=== PATIENT | female | born 1975 | race Caucasian/White ===

== ENCOUNTER → 2019-07-26 | Outpatient (CLI) | payer MEDICAID, SELFPAY ==
[2019-07-25 15:31] VITALS: BMI 34.2
== END | disposition home or self-care (01) ==
PROVIDERS: Visit Provider Physician Assistant
DX: L02.91 Cutaneous abscess, unspecified (principal)
CPT/HCPCS: 87070; 87077; 87186; 87205

== ENCOUNTER 2020-05-13 04:09 | Emergency (ER) | payer MEDICAID, SELFPAY ==
[2019-07-25 15:31] VITALS: BMI 34.2
[2020-05-13 04:09] VITALS: BP 112/74; PULSE 89; RESP 18; TEMP 36.9; O2SAT 98; BMI 37.8
--- NOTE | 2020-05-13 04:32 | RAD_ITS ---
STUDY: X-RAY - LEFT WRIST REASON FOR EXAM: Female, 44 years old. LEFT WRIST PAIN and amp; SWELLING. UNSURE HOW SHE INJURED IT, POSSIBLE BURNT IT TECHNIQUE: 3 view(s) of the wrist were obtained. COMPARISON: None. FINDINGS: Normal visualized distal radius and ulna. Normal radiocarpal articulation. Normal distal radioulnar articulation. Normal carpal bones. Normal carpal articulations. Normal carpometacarpal articulation of the thumb. Normal second through fifth carpometacarpal articulations. Normal visualized metacarpal bones. There is nonspecific soft tissue swelling. There is no demonstrated soft tissue emphysema or radiodense foreign body. RAD/Wrist min 3 Views IMPRESSION: No demonstrated fracture, dislocation, or destructive osseous lesion. Electronically Signed: Urbano Ramos MD at 4:58 EST , Service support ,
--- NOTE | 2020-05-13 04:33 | RAD_ITS ---
STUDY: X-RAY - LEFT HAND REASON FOR EXAM: Female, 44 years old. LEFT WRIST PAIN and amp; SWELLING. UNSURE HOW SHE INJURED IT, POSSIBLE BURNT IT TECHNIQUE: 3 view(s) of the hand. COMPARISON: X-ray wrist. FINDINGS: Normal radiocarpal articulation. Normal distal radioulnar joint. Normal visualized carpal bones. Normal carpal articulations Normal carpometacarpal articulation of the thumb. Normal second through fifth carpometacarpal joints. Normal metacarpi. Normal metacarpophalangeal joint of the thumb. Normal interphalangeal joint of the thumb. Normal proximal and distal phalanges of the thumb. Normal metacarpophalangeal joints of the second through fifth fingers. Normal proximal and distal interphalangeal joints of the second through fifth fingers. Normal phalanges of the second through fifth fingers. There is soft tissue swelling. There is no visualized soft tissue emphysema or radiodense foreign body. RAD/Hand Min 3 Views IMPRESSION: No demonstrated fracture, dislocation, or destructive osseous lesion. Electronically Signed: Urbano Ramos MD at 5:04 EST , Service support ,
--- NOTE | 2020-05-13 04:33 | ED.VIS.GEN ---
History of Present Illness Chief Complaint: Upper Extremity Injury Informant: Patient Narrative: 44-year-old female presenting with left wrist pain and hand pain. She states it started swelling yesterday. She believes she might have burned it while she was baking. She denies any direct trauma to the area. There is swelling but no drainage. No paresthesias. Patient denies any IV drug use. Past Medical History - Allergies and Home Meds Allergies/Adverse Reactions: Allergies No Known Allergies Allergy (Unverified 07/25/19 15:31) Primary Care Physician: [facility]] - NOT,DEFINED [NON-STAFF] - Past Medical History: - - Denies medical history Surgical History: noncontributory Smoking Status: Current every day smoker Alcohol: None Drugs: None Review of Systems General: Denies: Chills, Fever, Sweats Eyes: Denies: Visual changes - bilaterally, Diplopia ENT: Denies: Rhinorrhea, Sore throat Cardiovascular: Denies: Chest pain, Palpitations Respiratory: Denies: Dyspnea, Cough, Dyspnea on exertion Gastrointestinal: Denies: Abdominal pain, Nausea, Vomiting, Diarrhea, Melena, Hematochezia Genitourinary: Denies: Dysuria, Hematuria, Frequency Musculoskeletal: Reports: Extremity Pain - Left wrist and hand pain and swelling. Denies: Neck pain, Back pain Skin: Reports: - - Pain and swelling over the left wrist and hand Neurological: Denies: Headache, Weakness Psych: Denies: Depression, Anxiety Physical Exam Vital Signs/Narrative: Vital Signs Temp Pulse Resp BP Pulse Ox 05/13/20 04:09 98.4 F 89 18 112/74 98 Inital Vital Signs reviewed: Yes General: Well nourished, No Acute Distress Head: Normocephalic, Atraumatic Eyes: Perrl, EOMI ENT: Moist mucous membranes, No rhinorrhea Neck: Supple, Nontender Cardiovascular: Regular rate, Regular rhythm Respiratory: No distress, CTA bilaterally Extremities: - - Edema and swelling over the volar aspect of the left lateral wrist with swelling into the hand. No crepitance. Nonfluctuant. Multiple scars over the posterior forearm. Small punctate area with a pink [place] marked around it on the upper posterior arm. Skin: - - As described under extremities Neurological: Alert, Oriented x3, Cranial nerves II-XII grossly intact Psychological: Normal affect, Normal Mood Diagnostic/Tx/Re-eval Clinical Impression(s) from Imaging Studies Wrist X-Ray 05/13/20 04:32 IMPRESSION: No demonstrated fracture, dislocation, or destructive osseous lesion. Electronically Signed: rUbano Ramos MD at 4:58 EST , Service support , Hand X-Ray 05/13/20 04:33 IMPRESSION: No demonstrated fracture, dislocation, or destructive osseous lesion. Electronically Signed: Urbano Ramos MD at 5:04 EST , Service support , Laboratory Data 05/13/20 05/13/20 05:06 05:06 WBC 10.0 RBC 4.23 Hgb 12.5 Hct 38.1 MCV 90.1 MCH 29.6 MCHC 32.8 RDW Std Deviation 44.7 H RDW Coeff of Dexter 13.5 Plt Count 384 MPV 8.3 Immature Gran % (Auto) 0.400 Neut % (Auto) 68.9 Lymph % (Auto) 21.4 [place] % (Auto) 6.3 Eos % (Auto) 2.2 Baso % (Auto) 0.8 Absolute Neuts (auto) 6.9 Absolute Lymphs (auto) 2.14 Nucleated RBC % 0 Sodium 138 Potassium 3.9 Chloride 107 Carbon Dioxide 27.0 Anion Gap 4 L BUN 15 Creatinine 0.85 Estim Creat Clear Calc 67.50 Est GFR (MDRD) Af Amer 93 Est GFR (MDRD) Non-Af 77 BUN/Creatinine Ratio 17.6 Glucose 117 H Calcium 9.1 Total Bilirubin 0.20 AST 16 ALT 25 Alkaline Phosphatase 114 Total Protein 8.2 Albumin 3.6 Globulin 4.6 H Albumin/Globulin Ratio 0.8 L - Medical Decision Making Patient presents for evaluation of burn on her left wrist. She believes she did this while she was baking. Patient denies IV drug use. She denies any trauma. She does have significant swelling of the hand and wrist. There is no fluctuance or drainage here. Left hand is neurovascular intact with brisk cap refill to all 5 fingers. I did order basic lab work which shows no leukocytosis normal renal function. X-rays of the left wrist and hand as interpreted by myself shows no acute bony abnormalities. There is soft tissue swelling here. Radiology does agree. Given patient's eaton she will put in a dressing with bacitracin. She is given short course of Percocet for home given the pain. Patient will follow up with burn center at [facility]. Patient stable for discharge at this time. Impression: 1. First-degree burn left wrist ED Disposition - Plan for ED Patient: Disposition: Home or Assisted Living Instructions: ED [facility] [place] ... Prescriptions: Oxycodone HCl/Acetaminophen [Percocet 5/325] 1 tab PO Q6H PRN PRN 3 Days #12 tab PRN Reason: Pain Prescription Printed Referrals: NOT,DEFINED [NON-STAFF] - [facility]] -
[2020-05-13 05:08] LABS: Absolute Lymphocyte Count 2.14 X10^3/uL (0.83-4.51); Absolute Neutrophil Count 6.9 X10^3/uL (2.0-7.7); Basophil# 0.08 X10^3/uL; Basophil% 0.8 % (0-1); Eosinophil# 0.22 X10^3/uL; Eosinophils% 2.2 % (0-5); Hematocrit 38.1 % (37-47); Hemoglobin 12.5 g/dL (12.0-15.0); Lymphocyte # 2.14 X10^3/ul (4.0); Lymphocyte % 21.4 % (19-41); Mean Corp Hgb Conc 32.8 g/dL (32-36); Mean Corpuscular Hgb 29.6 pg (27.0-32.0); Mean Corpuscular Volume 90.1 fL (81-99); Mean Platelet Vol. 8.3 fl (6.2-12.0); Monocyte# 0.63 X10^3/uL; Monocyte% 6.3 % (0-10); NRBC Flagged by Analyzer 0 % (0-5); Neutrophil # 6.91 X10^3/uL (2.7-7.7); Neutrophil % 68.9 % (47-70); Platelet Count 384 K/mm3 (150-450); RBC Distribution Width CV 13.5 % (11.6-14.6); RBC Distribution Width SD 44.7 fl (35.1-43.9); Red Blood Count 4.23 M/mm3 (4.2-5.4)
[2020-05-13] MEDS: Morphine 4 MG/ML Syringe IV (05:13)
[2020-05-13] MEDS: Ondansetron 4 MG/2 ML Vial IV (05:13)
[2020-05-13 05:23] LABS: ALB/GLOB Ratio 0.8 RATIO (0.9-2.4); AST(SGOT) 16 U/L (15-37); Alanine Aminotransfer ALT/SGPT 25 U/L (13-56); Albumin, Serum 3.6 g/dL (3.2-5.0); Alkaline Phosphatase 114 U/L (45-117); Anion Gap 4 (5-15); BUN 15 mg/dL (7-18); BUN/Creat Ratio 17.6 RATIO (10-20); Calcium,Total 9.1 mg/dL (8.5-10.1); Chloride 107 mmol/L (98-107); Creatinine, Serum 0.85 mg/dL (0.55-1.02); EST Glomerular Filtration Rate 77 mL/min (>60); Est Glom Filt Rate - Afr Amer 93 mL/min (>60); Globulin 4.6 g/dL (2.2-4.2); Glucose 117 mg/dL (74-106); Potassium 3.9 mmol/L (3.5-5.1); Protein, Total 8.2 g/dL (6.4-8.2); Sodium Level 138 mmol/L (136-145)
[2020-05-13] MEDS: oxyCODONE 5 MG Tablet PO (05:45)
[2020-05-13 05:47] VITALS: BP 125/73; PULSE 73; RESP 22; O2SAT 98
--- NOTE | 2020-05-13 20:31 | ED.DEP ---
ED Disposition - Plan for ED Patient: Disposition: Home or Assisted Living Instructions: ED [facility] [place] ... Prescriptions: Oxycodone HCl/Acetaminophen [Percocet 5/325] 1 tab PO Q6H PRN PRN 3 Days #12 tab PRN Reason: Pain Prescription Printed Oxycodone HCl/Acetaminophen [Percocet 5/325] 1 tab PO Q6H PRN PRN 3 Days #12 tab PRN Reason: Pain Prescription Printed Referrals: [facility] [[facility]] - NOT,DEFINED [NON-STAFF] -
== END 2020-05-13 06:04 | disposition home or self-care (01) ==
PROVIDERS: Emergency Provider Student in an Organized Health Care Education/Training Program
DX: T23.172A Burn of first degree of left wrist, initial encounter (principal); X19.XXXA Contact with other heat and hot substances, initial encounter; Y93.G3 Activity, cooking and baking; Y92.9 Unspecified place or not applicable; Y99.8 Other external cause status; F17.200 Nicotine dependence, unspecified, uncomplicated
CPT/HCPCS: 73110; 73130; 80053; 85025; 96361; 96374; 96375; 99285; J7030; J2405

== ENCOUNTER 2024-11-02 00:18 | Emergency (ER) | payer MEDICAID, SELFPAY ==
[2024-11-02] VITALS (35 sets, daily range): BP systolic 95–149; BP diastolic 44–117; PULSE 72–116; RESP 11–28; TEMP 36.1–37.2; O2SAT 93–100; BMI 33.9
--- OUTSIDE RECORDS SUMMARY | 2024-11-02 00:50 | XMS RPT_ITS | CCD ---
Author Organization [facility] Inform ion Partnership [facility] Care Team Providers Care Director Of It Operations Name Role Phone Andrei Andrea Unavailable Unavailable Andrei Andrea Unavailable Unavailable Unavailable Primary Care Provider Unavailanastacio rogers PHYSICIAN, NONE Primary Care Physician Unavailab jayden YEE, DR SOURAV Rogers Admitting Unavaila ble JOSELITO, DR SOURAV Rogers Attending Unavaila ble JOSELITO, DR SOURAV Rogers Primary Care Unavaila KAVIN Wells Referring Unavailable KAVIN DEE Attending Unavailable Medications Current Medications Medication Drug Class(es) Dates Sig (Normalized) Sig (Original) acetaminophen 325 mg / oxyCODONE hydrochloride 5 mg oral tablet (2 sources) Opioid Agonist Start: 12-13-2020 acetaminophen-oxy CODONE 325 mg-5 mg oral tablet 0 Refill(s), 81.8 Start Date: 12/13/20 Status: Ordered amoxicillin 875 mg oral tablet (2 sources) Penicillin-class Antibacterial Start: 12-13-2020 amoxicillin 875 mg oral tablet 0 Refill(s) Start Date: 12/13/20 Status: Ordered buprenorphine 8 mg / naloxone 2 mg sublingual film (2 sources) Partial Opioid Agonist, Opioid Antagonist Start: 12-17-2021 take 1 dose under the tongue once daily buprenorphine-nal oxone 8 mg-2 mg sublingual film Dose = 1 EA, Sublingual, qDay, 82 Start Date: 12/17/21 Status: Ordered Start: 11-01-2021 End: 11-01-2021 Buprenorphine 4 mg/naloxone 1 mg (SUBOXONE) SL film 1 strip Completed/Discontinued Medications Medication Drug Class(es) Dates Sig (Normalized) Sig (Original) acetaminophen 325 mg oral tablet (1 source) Start: 11-01-2021 End: 11-01-2021 take 1 tablet by mouth every six hours as needed acetaminophen (TYLENOL) tablet 650 mg acetaminophen 325 mg / HYDROcodone bitartrate 5 mg oral tablet (2 sources) Opioid Agonist Start: 10-15-2020 End: 10-18-2020 take 1 tablet by mouth every six hours as needed for pain Aurora 325- 5 mg oral tablet Dose = 1 tab(s), Oral, q6h, PRN as needed for pain, # 12 tab(s), 0 Refill(s), Otitis media, 81.8 Start Date: 10/15/20 Stop Date: 10/18/20 Status: Ordered calcium chloride 0.0014 meq/ml / potassium chloride 0.004 meq/ml / sodium chloride 0.103 meq/ml / sodium lactate 0.028 meq/ml injectable solution (2 sources) Start: 11-01-2021 End: 11-01-2021 lactated ringers IV solution 1,000 mL cloNIDine hydrochloride 0.1 mg oral tablet (1 source) Central alpha-2 Adrenergic Agonist Start: 11-01-2021 End: 11-01-2021 take 1 tablet by mouth every six hours as needed cloNIDine (CATAPRES) tablet 0.1 mg dicyclomine hydrochloride 10 mg oral capsule (1 source) Anticholinergic Start: 11-01-2021 End: 11-01-2021 take 1 capsule by mouth every six hours as needed dicyclomine (BENTYL) capsule 10 mg 2 ml droperidol 2.5 mg/ml injection (1 source) Dopamine-2 Receptor Antagonist Start: 11-01-2021 End: 11-01-2021 droperidol (INAPSINE) injection 1.25 mg Start: 11-01-2021 End: 11-01-2021 droperidol (INAPSINE) inject ion 1.25 mg hydrOXYzine hydrochloride 25 mg oral tablet (1 source) Antihistamine Start: 11-01-2021 End: 11-01-2021 take 1 tablet by mouth every eight hours as needed hydrOXYzine HCl (ATARAX) tablet 25 mg predniSONE 10 mg oral tablet (4 sources) Start: 12-02-2021 End: 12-14-2021 take 1 tablet by mouth twice daily prednisone 10mg tab (TAPER) Taper 30-20-10-5 mg x 3 days each dose, Oral, BID, # 39 tab(s), 0 Refill(s), Contact dermatitis caused by urushiol from [place] poison eve Start Date: 12/02/21 Stop Date: 12/14/21 Status: Ordered Start: 10-15-2020 End: 10-20-2020 predniSONE 20 mg oral tablet Dose : 40 mg = 2 tab(s), Oral, Daily, # 10 tab(s), 0 Refill(s), Otitis media Start Date: 10/15/20 Stop Date: 10/20/20 Status: Ordered Problems Active Problems Problem Classification Problem Date Documented Da te Episodic/Chronic Allergic reactions (1 source) Contact dermatitis due to plants; Translations: [Unspecified contact dermatitis due to plants, except food] Onset: 12-02-2021 Episodic Asthma (2 sources) Asthma 05-18-2014 Chronic Nausea and vomiting (1 source) Nausea and vomiting; Translations: [Nausea with vomiting, unspecified] Episodic Other upper respiratory disease (1 source) Nasal congestion; Translations: [Nasal congestion] Onset: 12-17-2021 Episodic Substance-related disorders (2 sources) Opioid abuse; Translations: [Opioid use, unspecified, uncomplicated] Onset: 11-01-2021 Episodic Unclassified (1 source) Unknown / UNK(Unknown) Onset: 04-26-2017 Past or Other Problems Problem Classification Problem Date Documented Da te Episodic/Chronic Unclassified (1 source) ACUTE RIGHT LOWER EXTREMITY CELLULITIS,ACUTE Onset: 04-26-2017 Results Test Name Value Interpretation Reference Range Facility [id number] 12-17-2021 Date of Onset 20211214 Invalid Interpretation Code [facility] ([place] Comment on above: Performed By: #### C OVD19 #### [address] [address] Employed in Healthcare No [facility] [place] Comment on above: Performed By: #### C OVD19 #### Nicolas [address] [address] First Test Unknown [facility] ([place] Comment on above: Performed By: #### C OVD19 #### Nicolas [address] [address] Hospitalized No [facility] [place] Comment on above: Performed By: #### C OVD19 #### Nicolas [address] [place], [place] [address] ICU No Normal [facility] ([place] Comment on above: Performed By: #### C OVD19 #### Nicolas [address] [place], [place] [address] Not [facility] ([place] Comment on above: Performed By: #### C OVD19 #### Nicolas [address] [address] Resides in Congregate Care Setting No Normal [facility] ([place] Comment on above: Performed By: #### C OVD19 #### Nicolas [address] [address] SARS-CoV-2 (COVID-19) RNA HERNANDEZ+probe Ql (Unsp spec) Negative Normal Negative [facility] ([place] Comment on above: Performed By: #### C OVD19 #### Nicolas [address] [address] SARS-CoV-2 (COVID-19) RNA HERNANDEZ+probe Ql (Unsp spec) Normal [facility] ([place] Comment on above: Result Comment: Nega tive results do not preclude SARS-CoV-2 infection and should not be used as the sole basis for patient management decisions. Negative results must be combined with clinical observations, patient history, and epidemiological information. There is a risk of false negative values resulting from improperly collected, transported, or handled specimens. There is a risk of false negative values due to the presence of sequence variants in the pathogen targets of the assay, procedural errors, amplification inhibitors in specimens, or inadequate numbers of organisms for amplification. WAQAR SARS-CoV-2 Assay is a Real-Time reverse-transcriptase polymerase chain reaction (RT-PCR) based qualitative in vitro diagnostic test intended for the qualitative detection of nucleic acid from the SARS-CoV-2 in nasopharyngeal swab specimens collected from individuals suspected of COVID-19 by their healthcare provider. Testing is limited to laboratories certified under the Clinical Laboratory Improvement Amendments of 1988 (CLIA), 42 U.S.C. ?263a, to perform moderate and high complexity tests. COVID-19 Int Performed By: #### C OVD19 #### [place] [id number] [place], [place] [address] Symptomatic as Defined by CDC No Normal [facility] ([place]) Comment on above: Performed By: #### C OVD19 #### [facility] [address] [place], [place] [address] LABORATORYOrdered By: Rufus Arryoo on 12-17-2021 ADMITTED TO INTENSIVE CARE UNIT FOR CONDITION OF INTEREST:FIND:PT:^ PATIENT:ORD: No (12/17/21 8:48 AM) Invalid Interpretation Code AO Auto Urine SS EMPLOYED IN A HEALTHCARE SETTING:FIND:PT:^P ATIENT:ORD: No (12/17/21 8:48 AM) Invalid Interpretation Code AO Auto Urine SS FIRST TEST FOR CONDITION OF INTEREST:FIND:PT:^ PATIENT:ORD: Unknown (12/17/21 8:48 AM) Invalid Interpretation Code AO Auto Urine SS HAS SYMPTOMS RELATED TO CONDITION OF INTEREST:FIND:PT:^ PATIENT:ORD: No (12/17/21 8:48 AM) Invalid Interpretation Code AO Auto Urine SS Illness or injury onset date and time 20211214 Invalid Interpretation Code AO Auto Urine SS Patient was hospitalized because of this condition No (12/17/21 8:48 AM) Invalid Interpretation Code AO Auto Urine SS status Not (12/17/21 8:48 AM) Invalid Interpretation Code AO Auto Urine SS RESIDES IN A CONGREGATE CARE SETTING:FIND:PT:^P ATIENT:ORD: No (12/17/21 8:48 AM) Invalid Interpretation Code AO Auto Urine SS SARS-CoV-2 (COVID-19) RNA HERNANDEZ+probe Ql (Unsp spec) Negative results do not preclude SARS-CoV-2 infection and should not be used as the sole basis for patient management decisions. Negative results must be combined with clinical observations, patient history, and epidemiological information.There is a risk of false negative values resulting from improperly collected, transported, or handled specimens.There is a risk of false negative values due to the presence of sequence variants in the pathogen targets of the assay, procedural errors, amplification inhibitors in specimens, or inadequate numbers of organisms for amplification.WAQAR SARS-CoV-2 Assay is a Real-Time reverse-transcriptase polymerase chain reaction (RT-PCR) based qualitative in vitro diagnostic test intended for the qualitative detection of nucleic acid from the SARS-CoV-2 in nasopharyngeal swab specimens collected from individuals suspected of COVID-19 by their healthcare provider. Testing is limited to laboratories certified under the Clinical Laboratory Improvement Amendments of 1988 (CLIA), 42 U.S.C. 263a, to perform moderate and high complexity tests. Invalid Interpretation Code AO Auto Urine SS CBC AND ELECTRONIC DIFFon Basophils (Bld) [#/Vol] 0.11 10*3/uL 0.00 - 0.15 K/uL [facility] Basophils/100 WBC (Bld) 0.9 % [facility] Differential cell count method Nom (Bld) Electronic Differential [facility] Eosinophils (Bld) [#/Vol] 0.14 10*3/uL 0.00 - 0.42 K/uL [facility] Eosinophils/100 WBC (Bld) 1.1 % [facility] Erythrocyte distribution width (RBC) [Ratio] 13.2 % 10.8 - 14.9 % [facility] Hematocrit (Bld) [Volume fraction] 51.3 % High 34.9 - 44.3 % [facility] Hemoglobin (Bld) [Mass/Vol] 16.8 g/dL High 11.4 - 15.2 g/dL [facility] Immature granulocytes (Bld) [#/Vol] 0.05 10*3/uL <=0.08 [facility] Immature granulocytes/100 WBC (Bld) 0.4 % [facility] Interpretation and review of laboratory results Abnormal [facility] Lymphocytes (Bld) [#/Vol] 3.58 10*3/uL High 1.16 - 3.51 K/uL [facility] Lymphocytes/100 WBC (Bld) 28.8 % [facility] MCH (RBC) [Entitic mass] 29.1 pg 25.9 - 33.9 pg [facility] MCHC (RBC) [Mass/Vol] 32.7 g/dL 31.4 - 35.9 g/dL [facility] MCV (RBC) [Entitic vol] 88.8 fL 79.6 - 97.7 fL [facility] Monocytes (Bld) [#/Vol] 1.14 10*3/uL High 0.22 - 0.87 K/uL [facility] Monocytes/100 WBC (Bld) 9.2 % [facility] Neutrophils (Bld) [#/Vol] 7.42 10*3/uL High 1.64 - 7.28 K/uL [facility] Nucleated RBC/100 WBC (Bld) [Ratio] 0.0 % <=0.2 /100 WBC [facility] Platelet mean volume (Bld) [Entitic vol] 8.8 fL 8.5 - 12.2 fL [facility] Platelets (Bld) [#/Vol] 458 10*3/uL High 150 - 393 K/uL [facility] RBC (Bld) [#/Vol] 5.78 10*6/uL High [facility] Segmented neutrophils/100 WBC (Bld) 59.6 % [facility] WBC (Bld) [#/Vol] 12.44 10*3/uL High 3.99 - 11 .19 K/uL [facility] CHEM 7 (LYTES,BUN,CREA,GLUC) on 11-01-2021 Anion gap [Moles/Vol] 16 mmol/L 7 - 17 mmol/L [facility] Chloride [Moles/Vol] 99 mmol/L 98 - 108 mmol/L [facility] CO2 [Moles/Vol] 22 mmol/L 21 - 31 mmol/L [facility] Creatinine [Mass/Vol] 0.97 mg/dL 0.50 - 1.20 mg/dL [facility] GFR/1.73 sq M.predicted CKD-EPI (S/P/Bld) [Vol rate/Area] 73 >=60 mL/min/1.73m 2 [facility] Comment on above: Reported eGFR is bas ed on the CKD-EPI 2020 equation using creatinine, age, and sex. Glucose [Mass/Vol] 98 mg/dL 70 - 99 mg/dL [facility] Interpretation and review of laboratory results Abnormal [facility] Osmolality Calc [Osmolality] 285 [facility] Potassium [Moles/Vol] 3.8 mmol/L 3.5 - 5.0 mmol/L [facility] Sodium [Moles/Vol] 133 mmol/L Low 135 - 145 mmol/L [facility] Urea nitrogen [Mass/Vol] 30 mg/dL High 7 - 25 mg/dL [facility] Urea nitrogen/Creatinin e [Mass ratio] 31 mg/mg [facility] HIGH SENSITIVITY TROPONIN I - SINGLE ORDERon 11-01-2021 Interpretation and review of laboratory results Normal [facility] Troponin I.cardiac DL <= 0.01 ng/mL [Mass/Vol] 21 ng/L <[address] [facility] LACTATE, BLOODOrdered By: Alejandro blankenship Ma on 11-01-2021 Interpretation and review of laboratory results Normal [facility] Lactate [Moles/Vol] 1.5 mmol/L 0.5 - 1.6 mmol/L [facility] LACTATE, WHOLE BLOODon 11-01 Interpretation and review of laboratory results Abnormal [facility] Lactate [Moles/Vol] 2.1 mmol/L High 0.5 - 1.6 mmol/L [facility] LIPASEon 11-01-2021 Lipase [Catalytic activity/Vol] 28 U/L 11 - 82 U/L [facility] MAGNESIUMon 11-01-2021 Magnesium [Mass/Vol] 2.3 mg/dL 1.6 - 2.6 mg/dL [facility] No Panel Informationon 11-01 Interpretation and review of laboratory results Normal [facility] PHOSPHATE, INORGANICon 11-01 Phosphate [Mass/Vol] 3.5 mg/dL 2.2 - 4.6 mg/dL [facility] BLOOD CULTUREon 05-01-2017 Bacteria culture NO GROWTH AFTER 5 DAYS Normal [facility] Comment on above: Order Comment: Campu s: M Performed By: #### L 500.36168, L500.95844 ####[facility] [id number] [place], [place] [address]Qm# [phone] Bacteria culture NO GROWTH AFTER 5 DAYS Normal [facility] Comment on above: Order Comment: Campu s: M Performed By: #### L 500.20770, L500.24207 ####[facility] [id number] [place], [place] [address]Bk# [phone] DRUG SCREEN URon 05-01-2017 DRUG SCREEN UR FINAL Normal () [facility] Comment on above: Order Comment: Campu s: M Result Comment: =COMPREHENSIVE DRUG ANALYSIS,UR Test Result Flag UnitsDrug Present Methamphetamine >2128 ng/mg creat Amphetamine 1371 ng/mg creat Sources of methamphetamine include illicit sources, as a scheduled prescription medication, as a metabolite of some prescription drugs, or use of an l-methamphetamine inhaler. Amphetamine is an expected metabolite of methamphetamine. Amphetamine is also available as a schedule II prescription drug. Benzoylecgonine >2128 ng/mg creat Benzoylecgonine is a metabolite of cocaine; its presence indicates use of this drug. Source is most commonly illicit, but cocaine is present in some topical anesthetic solutions. Carboxy-THC 57 ng/mg creat Carboxy-THC is a metabolite of tetrahydrocannabinol (THC). Source of THC is most commonly illicit, but THC is also present in a scheduled prescription medication. Morphine 33 ng/mg creat Potential sources of morphine include administration of codeine or morphine, use of heroin, or ingestion of poppy seeds. Fentanyl 9 ng/mg creat Norfentanyl 113 ng/mg creat Source of fentanyl is a scheduled prescription medication, including IV, patch, and transmucosal formulations. Norfentanyl is an expected metabolite of fentanyl. Buprenorphine 83 ng/mg creat Norbuprenorphine 23 ng/mg creat Source of buprenorphine is a scheduled prescription medication. Norbuprenorphine is an expected metabolite of buprenorphine. A moderate to large amount of buprenorphine is present; norbuprenorphine is present at a very low concentration. This is an atypical result. Although patients with unusual metabolic profiles exist, they are rare. Review of previous drug screen results or collection of a urine sample several hours after a WITNESSED dose of the drug may help to clarify the subject's ability to produce metabolite. Diphenhydramine PRESENT Lidocaine PRESENT ========Test Result Flag Units Ref Range Creatinine 235 mg/dL >=20 =====For clinical consultation, please call . Performed By: #### L 200.36835 ####[facility] [id number] [place], [place] [address]Km# [phone] BMPon 04-30-2017 Anion gap 9 mmol/L Normal 5-16 [facility] Comment on above: Order Comment: Melissa Brito Performed By: #### L 200.92970 ####[facility] [id number] [place], [place] [address]Pq# [phone] BUN/Creatinine Ratio 21 mg/mg Normal 15-24 [facility] Comment on above: Order Comment: Dezu s: M Performed By: #### L 200.64942 ####[facility] [id number] [place], [place] [address]Bp# [phone] Calcium 8.4 mg/dL Low 8.5-10.1 [facility] Comment on above: Order Comment: Campu s: M Performed By: #### L 200.21522 ####[facility] [id number] [place], [place] [address]Zm# [phone] Chloride 110 mmol/L High 98-107 [facility] Comment on above: Order Comment: Campu s: M Performed By: #### L 200.30176 ####[facility] [id number] [place], [place] [address]Ek# [phone] CO2 23 mmol/L Normal 21-32 [facility] Comment on above: Order Comment: Campu s: M Performed By: #### L 200.11337 ####[facility] [id number] [place], [place] [address]Bi# [phone] Creatinine 0.797 mg/dL Normal 0.510-0.950 [facility] Comment on above: Order Comment: Dezu s: M Result Comment: Chapis ents receiving either N-Acetylcysteine (NAC) orMetamizole prior to venipuncture, may have falsely depressedresults. Performed By: #### L 200.50144 ####[facility] [id number] [place], [place] [address]Ir# [phone] Glucose mass conc 85 mg/dL Normal 70-100 [facility] Comment on above: Order Comment: Campu s: M Result Comment: 70-1 00- Normal Fasting; 100-125 Impaired Fasting; greaterthan 126 on more than one result- Diabetes. ADA guidelines.Results may be falsely elevated after the administration ofSulfapyridine.Results may be falsely depressed after the administration ofSulfasalazine. Performed By: #### L 200.90225 ####[facility] [id number] [place], [place] [address]Ye# [phone] Potassium molar conc 4.3 mmol/L Normal 3.5-5.1 [facility] Comment on above: Order Comment: Campu s: M Performed By: #### L 200.67235 ####[facility] [id number] [place], [place] [address]Ph# [phone] Sodium 142 mmol/L Normal 136-145 [facility] Comment on above: Order Comment: Campu s: M Performed By: #### L 200.07161 ####[place] [address]Ph# [phone] Urea nitrogen 17 mg/dL Normal 7-26 [facility] Comment on above: Order Comment: Campu s: M Performed By: #### L 200.86244 ####[facility] [id number] [place], [place] [address]Ph# [phone] CBC W/DIFFon 04-30-2017 BASO ABS 0.10 K/CU MM Normal 0-0.2 [facility] Comment on above: Order Comment: Campu s: M Performed By: #### L 200.59650 ####[facility] [id number] [place] [address]Rf# [phone] Basophils/100 WBC Auto (Bld) 1.4 % Normal 0-2 [facility] Comment on above: Order Comment: Campu s: M Performed By: #### L 200.75697 ####[facility] [id number] [place] [address]Oj# [phone] EOS ABS 0.20 K/CU MM Normal 0-0.5 [facility] Comment on above: Order Comment: Campu s: M Performed By: #### L 200.70190 ####[facility] [id number] [place], [place] [address]Ph# [phone] Eosinophils/100 leukocytes 3.3 % Normal 0-5 [facility] Comment on above: Order Comment: Campu s: M Performed By: #### L 200.73982 ####[facility] [id number] [place], [place] [address]Jw# [phone] Erythrocyte distribution width Auto Ratio (RBC) 13.6 % Normal 11-14.5 [facility] Comment on above: Order Comment: Campu s: M Performed By: #### L 200.56518 ####[facility] [id number] [place], [place] [address]Mh# [phone] Erythrocytes (RBC) 0.0 % Normal Less than 1 [facility] Comment on above: Order Comment: Campu s: M Performed By: #### L 200.07435 ####[facility] [id number] [place], [place] [address]Xy# [phone] Erythrocytes (RBC) 3.07 M/CU MM Low 3.90-5.[address] [facility] Comment on above: Order Comment: Campu s: M Performed By: #### L 200.05205 ####[facility] [id number] [place], [place] [address]Zk# [phone] Hematocrit (HCT) 27.6 % Low 35.0-47.0 [facility] Comment [facility]: Order Comment: Campu s: M Performed By: #### L 200.90730 ####[facility] [id number] [place], [place] [address]Ok# [phone] Hemoglobin mass conc (Bld) 8.9 g/dL Low 11.5-15.5 [facility] Comment on above: Order Comment: Campu s: M Performed By: #### L 200.85923 ####[facility] [id number] [place] [address]Va# [phone] IMMATR GRAN ABS 0.00 K/CU MM Normal Less than 2 [facility] Comment on above: Order Comment: Campu s: M Performed By: #### L 200.24973 ####[facility] [id number] [place] [address]Ph# [phone] IMMATURE GRAN % 0.3 % Normal Less than 2 [facility] Comment on above: Order Comment: Campu s: M Performed By: #### L 200.04490 ####[facility] [id number] [place], [place] [address]Ph# [phone] Lymphocytes 2.20 K/CU MM Normal 0.9-4.4 [facility] Comment on above: Order Comment: Campu s: M Performed By: #### L 200.87787 ####[facility] [id number] [place], [place] [address]Ph# [phone] Lymphocytes/100 leukocytes 38.6 % Normal 20-40 [facility] Comment on above: Order Comment: Campu s: M Performed By: #### L 200.97369 ####[place] [address]Ph# [phone] MCHC mass conc (RBC) 32.2 g/dL Normal 32.0-36.0 [facility] Comment on above: Order Comment: Campu s: M Performed By: #### L 200.50077 ####[facility] [id number] [place], [place] [address]Ph# [phone] MCV 89.9 fL Normal 80.0-99.0 [facility] Comment on above: Order Comment: Campu s: M Performed By: #### L 200.56755 ####[facility] [id number] [place], [place] [address]Ph# [phone] MONO ABS 0.70 K/CU MM Normal 0.1-1.1 [facility] Comment on above: Order Comment: Campu s: M Performed By: #### L 200.24757 ####[facility] [id number] [place], [place] [address]Ph# [phone] Monocytes/100 leukocytes 12.6 % High 2-10 [facility] Comment on above: Order Comment: Campu s: M Performed By: #### L 200.72327 ####[facility] [id number] [place], [place] [address]Rv# [phone] Neutrophils 2.50 K/CU MM Normal 2.0-8.3 [facility] Comment on above: Order Comment: Campu s: M Performed By: #### L 200.49660 ####[facility] [id number] [place], [place] [address]Ph# [phone] Neutrophils/100 WBC Auto (Bld) 43.8 % Low 45-75 [facility] Comment on above: Order Comment: Campu s: M Performed By: #### L 200.52473 ####[place] [address]Ph# [phone] Platelet mean volume (PMV) 8.7 fL Low 9.4-12.4 [facility] Comment on above: Order Comment: Campu s: M Performed By: #### L 200.80450 ####[facility] [id number] [place], [place] [address]Ph# [phone] Platelets 437 K/CU MM Normal 150-450 [facility] Comment on above: Order Comment: Campu s: M Performed By: #### L 200.46505 ####[facility] [id number] [place], [place] [address]Pr# [phone] WBC (Leukocytes) 5.8 K/CU MM Normal 4.5-11.0 [facility] Comment on above: Order Comment: Campu s: M Performed By: #### L 200.87516 ####[facility] [id number] [place], [place] [address]Ph# [phone] DISCH.SUMon 04-30-2017 DISCH.SUM [facility] Patient Name: LEANNE [id number] [facility] Date of : [address] [address] Unit Number: [id number] Number: [id number] Summary Patient Status: DIS INAttending Doctor: Andrei Andrea MDService Date: 04/30/17 1149Discharge SummaryAdmit Date04/25/17Anticipated Discharge Date 04/30/17inal Dx/Problem List1. ACUTE RIGHT LOWER EXTREMITY OPEN WOUNDS2. HEROIN ABUSE3. ThrombocytosisChief Complaint/HPIRight LE pain and woundsReason for AdmissionRight LE woundsHospital CourseThis is a 41 yo female with a pertinent past medical history of heroin abuse viaskin popping, cocaine abuse, and right le wound where patient recently went to and refused admission and x-ray and was discharged on abx. However, patientendorses that the right LE wound wound with pain, erythema, and open wound with drainageand thereby patient admitted to [facility] service for multiple right LE ulcers with drainage.1. Acute right LE open wounds/ulcers:- Plastic surgery was consulted and stated that no surgery is needed after 48 hourclinical assessment via plastic surgery. As a result, plastic surgery signed off andprescribed patient silvadine and states that they will like to see the patient on 05/06/2017 for reassessment of right LE wounds/ulcers.- Wound culture were obtained and showed strep pyogenes thereby per IDDuglas patientdischarged the patient on 14 days of Augmentin 875/125 mg PO BID and Levaquin 500 mg POqday per Microbiology sensitivity. Patient is to follow-up with Dr. Cardenas within twoweeks- During the hospitalization patient was initially started on Vanc and Zosyn, thentransitioned to Clindamycin and Unasyn. To note, patient was started on Zosyn since sheuses tap water prior to injection thereby there was concern for pseudomonas.- Blood culture obtained and showed no growth- Patient was also discharged on Ibuprofen for pain.- Patient will follow-up with [facility] within one to two weeks.2. Heroin abuse:- UDS positive for amphetamines, cannbinoids, and cocaine- HIV negative- Patient had no withdrawals while hospitalized- We counseled patient on illicit drug cessation and stop skin popping.3. Thrombocytosis:- Platelets trending down to 437. More likely (i.e. acute phase reactant).Pertinent Physical FindingsGeneral: female who appears stated age in no acute distressHeart: RRR, no M/R/GLungs: CTABAbdomen: Soft, non-distended, not tender, and normoactive bowel soundsExt: Right LE is bandage with no drainage from the bandage.Consults Infectious Disease, Plastic SurgeryPrescriptionsStart taking the following new medications:Ibuprofen* (Motrin 400MG Tab*) 400 MG [id number] MILLIGRAM ORAL EVERY 6 HOURS NEEDED as needed for PAINQty = 14No RefillsAmoxicillin/Potassium Clav* (Augmentin 875-125 Tab*) 1 EACH [id number] MILLIGRAM ORAL TWICE DAILY WITH MEALSQty = 28No RefillsLevofloxacin* (Levaquin 500 MG Tab*) 500 MG [id number] MILLIGRAM ORAL ONCE DAILY BEFORE MEALSQty = 14No RefillsSilver Sulfadiazine* (Silvadene Topical Cream*) 20 GM CREAM..G.1 APPLICATION TOPICAL EVERY DAYQty = 1Refills = 3Instructions:APPLY TO LEG WOUNDS DAILY, COVER WITH NON-STICK DRESSING AND WRAP LEGWITH KERLIX AND VENKATESH FROM KNEE TO TOESReferralsOrdered ReferralsWound Care 05/06/17or Providers:Jerardo Maza DO133Donna HAZEL [address] [address] Primary Care Provide In One-Two WeeksFor Providers:[facility]tySouthern [facility] Centerpatricia OCG[address] [place] [address] Infectious Disease In Two WeeksFor Providers:Valdez Cardenas MD[address] [place] [address] Condition: FairDisposition HomeDisclaimerThis dictation was created using voice recognition software.Phonetic and/or minor grammatical errors may exist.eSign Date and LatoyacoCyndy weathers MD Verified/Reviewed by 04/30/17 Andrei Mckeon MD [facility] Discharge Summary [facility] Siren GFR ESTon 04-30-2017 IF AMER Greater than 60 [facility] Comment on above: Order Comment: Melissa figueroa: M Performed By: #### L 200.64176 ####[facility] UIJDOTWGJO24[address] [place] [address]Ph# [phone] IF non-AFR AMER Greater than [address] [facility] Comment on above: Order Comment: Campu s: M Performed By: #### L 200.57154 ####[facility] CRZEEYYFBB9537 [place] [address]Ph# [phone] BMPon 04-29-2017 Anion gap 8 mmol/L Normal 5-16 [facility] Comment on above: Order Comment: Campu s: M Performed By: #### L 500.34917, L500.58581 ####[facility] INYFDROLEN[address] [place] [address]Op# [phone] BUN/Creatinine Ratio 18 mg/mg Normal 15-24 [facility] Comment on above: Order Comment: Campu s: M Performed By: #### L 500.00408, L500.11379 ####[facility] XBJWMDGBFP0754 [place], [place] [address]Yi# [phone] Calcium 8.6 mg/dL Normal 8.5-10.1 [facility] Comment on above: Order Comment: Campu s: M Performed By: #### L 500.62294, L500.31479 ####[facility] BEFGYFLOOJ9084 [place], [place] [address]Ha# [phone] Chloride 109 mmol/L High 98-107 [facility] Comment on above: Order Comment: Campu s: M Performed By: #### L 500.64978, L500.86353 ####[facility] IXLKENOCPE8218 [place], [place] [address]Tp# [phone] CO2 23 mmol/L Normal 21-32 [facility] Comment on above: Order Comment: Campu s: M Performed By: #### L 500.54718, L500.98622 ####[facility] VQSMCLBKVM[address] [place] [address]Oi# [phone] Creatinine 0.823 mg/dL Normal 0.510-0.950 [facility] Comment on above: Order Comment: Campu s: M Result Comment: Chapis ents receiving either N-Acetylcysteine (NAC) orMetamizole prior to venipuncture, may have falsely depressedresults. Performed By: #### L 500.39247, L500.78633 ####[facility] BNHJJXXRYM7581 [place], [place] [address]Ed# [phone] Glucose mass conc 82 mg/dL Normal 70-100 [facility] Comment on above: Order Comment: Campu s: M Result Comment: 70-1 00- Normal Fasting; 100-125 Impaired Fasting; greaterthan 126 on more than one result- Diabetes. ADA guidelines.Results may be falsely elevated after the administration ofSulfapyridine.Results may be falsely depressed after the administration ofSulfasalazine. Performed By: #### L 500.28748, L500.01735 ####[facility] VNRXQQYQZY3925 [place], [place] [address]Gg# [phone] Potassium molar conc 4.3 mmol/L Normal 3.5-5.1 [facility] Comment on above: Order Comment: Campu s: M Performed By: #### L 500.89460, L500.74341 ####[facility] OHJRLXJRKE[address] [place] [address]Sy# [phone] Sodium 140 mmol/L Normal 136-145 [facility] Comment on above: Order Comment: Campu s: M Performed By: #### L 500.04310, L500.39329 ####[facility] DEISTNSOIV7757 [place], [place] [address]Sn# [phone] Urea nitrogen 15 mg/dL Normal 7-26 [facility] Comment [facility]: Order Comment: Campu s: M Performed By: #### L 500.54071, L500.13722 ####[facility] LJOKHDLJSP[address] [place] [address]Pb# [phone] CBC W/DIFFon 04-29-2017 BASO ABS 0.10 K/CU MM Normal 0-0.2 [facility] Comment on above: Order Comment: Campu s: M Performed By: #### L 500.82319, L500.08797 ####[facility] [id number] [place] [address]Ro# [phone] Basophils/100 WBC Auto (Bld) 1.1 % Normal 0-2 [facility] Siren Comment on above: Order Comment: Campu s: M Performed By: #### L 500.04376, L500.50701 ####[address] [address]Jw# [phone] EOS ABS 0.20 K/CU MM Normal 0-0.5 [facility] Siren Comment on above: Order Comment: Campu s: M Performed By: #### L 500.70070, L500.39665 ####[place] [address]Ph# [phone] Eosinophils/100 leukocytes 3.0 % Normal 0-5 [facility] Siren Comment on above: Order Comment: Campu s: M Performed By: #### L 500.89267, L500.37509 ####[place] [address]Ph# [phone] Erythrocyte distribution width Auto Ratio (RBC) 13.2 % Normal 11-14.5 [facility] Siren Comment on above: Order Comment: Campu s: M Performed By: #### L 500.10050, L500.89195 ####[address] [address]Su# [phone] Erythrocytes (RBC) 3.10 M/CU MM Low 3.90-5.[address] [facility] Siren Comment on above: Order Comment: Campu s: M Performed By: #### L 500.35313, L500.28999 ####[address] [address]An# [phone] Erythrocytes (RBC) 0.0 % Normal Less than 1 [facility] Siren Comment on above: Order Comment: Campu s: M Performed By: #### L 500.56351, L500.02036 ####[facility] LMPVNWINYR[address] [place] [address]Ad# [phone] Hematocrit (HCT) 27.1 % Low 35.0-47.0 [facility] Comment on above: Order Comment: Campu s: M Performed By: #### L 500.71703, L500.31586 ####[facility] QUNSDKEJOK[address] [place] [address]Wz# [phone] Hemoglobin mass conc (Bld) 8.9 g/dL Low 11.5-15.5 [facility] Comment on above: Order Comment: Campu s: M Performed By: #### L 500.25374, L500.56898 ####[place] [address]Ph# [phone] IMMATR GRAN ABS 0.00 K/CU MM Normal Less than 2 [facility] Siren Comment on above: Order Comment: Campu s: M Performed By: #### L 500.76934, L500.55022 ####[place] [address]Ph# [phone] IMMATURE GRAN % 0.6 % Normal Less than 2 [facility] Siren Comment on above: Order Comment: Campu s: M Performed By: #### L 500.35133, L500.00618 ####[facility] PYMMRIDXGB[address] [place] [address]Yg# [phone] Lymphocytes 2.10 K/CU MM Normal 0.9-4.4 [facility] Comment on above: Order Comment: Campu s: M Performed By: #### L 500.65740, L500.54655 ####[address] [address]In# [phone] Lymphocytes/100 leukocytes 38.2 % Normal 20-40 [facility] Siren Comment on above: Order Comment: Campu s: M Performed By: #### L 500.80972, L500.12845 ####[address] [address]Tu# [phone] MCHC mass conc (RBC) 32.8 g/dL Normal 32.0-36.0 [facility] Comment on above: Order Comment: Campu s: M Performed By: #### L 500.28831, L500.21770 ####[facility] XGDHYFLGIU4782 [place], [place] [address]Zs# [phone] MCV 87.4 fL Normal 80.0-99.0 [facility] Comment on above: Order Comment: Campu s: M Performed By: #### L 500.09704, L500.34986 ####[place] [address]Ph# [phone] MONO ABS 0.60 K/CU MM Normal 0.1-1.1 [facility] Comment on above: Order Comment: Campu s: M Performed By: #### L 500.66234, L500.68539 ####[address] [address]Ht# [phone] Monocytes/100 leukocytes 11.2 % High 2-10 [facility] Comment on above: Order Comment: Campu s: M Performed By: #### L 500.70549, L500.59243 ####[facility] [address] [place] [address]Xa# [phone] Neutrophils 2.50 K/CU MM Normal 2.0-8.3 [facility] Comment on above: Order Comment: Campu s: M Performed By: #### L 500.65752, L500.32283 ####[facility] AYOLHYFSCL[address] [place] [address]Ni# [phone] Neutrophils/100 WBC Auto (Bld) 45.9 % Normal 45-75 [facility] Comment on above: Order Comment: Campu s: M Performed By: #### L 500.60295, L500.49463 ####[facility] [address]ZLGSJHH[address] [place] [address]Tv# [phone] Platelet mean volume (PMV) 8.1 fL Low 9.4-12.4 [facility] Comment on above: Order Comment: Campu s: M Performed By: #### L 500.31602, L500.97868 ####[facility] SWCRNZHCLY7154 [place], [place] [address]Bo# [phone] Platelets 419 K/CU MM Normal 150-450 [facility] Siren Comment on above: Order Comment: Campu s: M Performed By: #### L 500.48584, L500.16094 ####[facility] JCAHPJAXHG5993 [place], [place] [address]Ob# [phone] WBC (Leukocytes) 5.4 K/CU MM Normal 4.5-11.0 [facility] Comment on above: Order Comment: Campu s: M Performed By: #### L 500.70070, L500.63040 ####[facility] JGHJXKLPOC0195 [place], [place] [address]Ud# [phone] GFR ESTon 04-29-2017 IF AMER Greater than [address] [facility] Siren Comment on above: Order Comment: Campu s: M Performed By: #### L 200.74085 ####[facility] QDATSIWLBW9741 [place], [place] [address]Lt# [phone] IF non-AFR AMER Greater than [address] [facility] Siren Comment on above: Order Comment: Campu s: M Performed By: #### L 200.67500 ####[facility] LVRCTMTLLH7074 [place], [place] [address]Eb# [phone] PROG.MTSon 04-29-2017 PROG.[facility] Patient Name: LEANNE WHEELER1320 [facility] Date of : [address] [address] [address] Unit Number: [id number] Number: [id number] Note-[facility] Patient Status: ADM INAttending Doctor: Andrei Andrea MDService Date: 04/29/17 1222SubjectiveS: (2 ROS minimum)Patient seen and examined today. Per nursing staff, no acute overnight events. Patientstates her pain is well-controlled. Discussed with her today the plastics will not bedoing intervention on her lower extremity wounds during this admission and an outpatientfollow-up appointment will be scheduled. Patient expressed understandingObjective (ROS)Nursing VitalsVital Signs (Last)ResultDate TimePulse Eu5805/05 0907B/P131/15908/05 0907O2 Flow Yslo3D65/05 0690Nusr14.901/05 3848Nrtmn9845/05 8502Txac0866/05 0907General AppearanceAppears in no acute distressPhysical ExamNeurological / Psychiatric Alert, Orientation X3, no focal neurologic deficitsRespiratory Normal Breathing Effort, Clear LungsCardiovascular Heart RRR, No M / R / GGastrointestinal Normal Bowel Sounds, Non TenderMusculoskeletal right lower extremity has a dressing in place is clean dry and intactSkin multiple areas of skin ulceration from apparent intravenous drug abuse. Right lowerextremity has significant ulceration with no apparent necrotic tissue.Diagnostic Data:Lab 24hr (CBC/BMP [facility])04/29/17 0533:[Embedded Image Not Available]Anion Gap 8, Est GFR ( Amer) Greater than 60, Est GFR (Non-Af Amer) Greater than 60, BUN/Creatinine Ratio 18, Glucose 82, Total Calcium 8.6, RBC 3.10 L, MCV 87.4, MCHC 32.8,RDW 13.2, MPV 8.1 L, Immature Gran % (Auto) 0.6, Abs Immat Gran (auto) 0.00, SegNeutrophils % 45.9, Lymphocytes % 38.2, Monocytes % 11.2 H, Eosinophils % 3.0, Basophils %1.1, Neutrophils # 2.50, Lymphocytes # 2.10, Monocytes # 0.60, Eosinophils # 0.20,Basophils # 0.10, Nucleated RBCs 0.0Assessment and PlanConclusion1. ACUTE RIGHT LOWER EXTREMITY OPEN WOUNDSWe'll continue dressing changes and topical ointments per plastic surgery. Dr. Valenzuela and evaluated the patient today stated that no surgical intervention will be neededduring this admission. Patient continues on clindamycin and Unasyn per infectious diseaseas wound culture grew beta hemolytic group A strep. Blood cultures negative to date. Wewill continue with intravenous antibiotics for now as the patient seems noncompliant, andmay not take by mouth medications when discharged. Continue symptomatically with Toradoland Zofran for pain and nausea respectively.2. HEROIN ABUSEUrine drug screen did show amphetamine, cocaine and cannabinoids. Her HIV has beennegative during this admission. No significant withdrawal symptoms noted. Illicitsubstance cessation counseled.3. ThrombocytosisPelvic count today is 419. Continue monitor a.m. CBC.4. Tobacco abuseContinue nicotine supplementation5. DVT prophylaxisHeparin subcutaneous6. Full code statusPlanPlan to continue IV antibiotics for now. Will follow up with infectious disease today.Patient seems noncompliant and there is concern that she will not take oral antibiotics asan outpatient.DisclaimerThis dictation was created using voice recognition software.Phonetic and/or minor grammatical errors may exist.eSign Date and TimeSouleymane Elias MD Verified/Reviewed by 04/29/17 1232RAndrei malone MD [facility] Progress Note-MTS [facility] WOUND CULTUREon 04-29-2017 WOUND CULTURE GRAM STAIN MODERATE WBC'S MANY GRAM POSITIVE COCCIORGANISM 1: STREPTOCOCCUS PYOGENES GROUP AQUANTITATION FEWSTREPTOCOCCUS PYOGENES GROUP A: REACTION AMPICILLIN <0.06 S CEFEPIME <0.25 S CHLORAMPHENICOL 4 S CLINDAMYCIN >0.5 R PENICILLIN <0.03 S TETRACYCLINE >4 R LEVOFLOXACIN 0.5 S Normal [facility] Comment on above: Order Comment: Campu s: M Performed By: #### L 500.04447, L500.36353 ####[facility] LFSAYAMPDV5207 [place], [place] [address]Dq# [phone] BMPon 04-28-2017 Anion gap 8 mmol/L Normal 5-16 [facility] Comment on above: Order Comment: Campu s: M Performed By: #### L 500.34844, L500.93809 ####[facility] JEVPVRABME1721 [place], [place] [address]Sj# [phone] BUN/Creatinine Ratio 23 mg/mg Normal 15-24 [facility] Comment on above: Order Comment: Campu s: M Performed By: #### L 500.18998, L500.12957 ####[facility] CKLMAOLGMZ3560 [place], [place] [address]Xd# [phone] Calcium 8.4 mg/dL Low 8.5-10.1 [facility] Siren Comment on above: Order Comment: Campu s: M Performed By: #### L 500.57553, L500.78518 ####[facility] IJPZKOEPNA2265 [place], [place] [address]Sz# [phone] Chloride 109 mmol/L High 98-107 [facility] Comment on above: Order Comment: Campu s: M Performed By: #### L 500.32907, L500.32184 ####[facility] QQDZXATESN2107 [place], [place] [address]Ea# [phone] CO2 23 mmol/L Normal 21-32 [facility] Comment on above: Order Comment: Campu s: M Performed By: #### L 500.09702, L500.60072 ####[facility] [address]VTOZW[address] [place] [address]Rm# [phone] Creatinine 0.877 mg/dL Normal 0.510-0.950 [facility] Comment on above: Order Comment: Campu s: M Result Comment: Chapis ents receiving either N-Acetylcysteine (NAC) orMetamizole prior to venipuncture, may have falsely depressedresults. Performed By: #### L 500.99984, L500.30550 ####[facility] RJDRCNCYVW4933 [place], [place] [address]Uq# [phone] Glucose mass conc 84 mg/dL Normal 70-100 [facility] Comment on above: Order Comment: Campu s: M Result Comment: 70-1 00- Normal Fasting; 100-125 Impaired Fasting; greaterthan 126 on more than one result- Diabetes. ADA guidelines.Results may be falsely elevated after the administration ofSulfapyridine.Results may be falsely depressed after the administration ofSulfasalazine. Performed By: #### L 500.49567, L500.89281 ####[facility] KSJUHRTYCV0281 [place], [place] [address]Ru# [phone] Potassium molar conc 4.2 mmol/L Normal 3.5-5.1 [facility] Comment on above: Order Comment: Campu s: M Performed By: #### L 500.81810, L500.76470 ####[facility] [address]ZFBISPHN[address] [place] [address]Fp# [phone] Sodium 140 mmol/L Normal 136-145 [facility] Comment on above: Order Comment: Campu s: M Performed By: #### L 500.19176, L500.81545 ####[address] [address]Hb# [phone] Urea nitrogen 20 mg/dL Normal 7-26 [facility] Comment on above: Order Comment: Campu s: M Performed By: #### L 500.88111, L500.62989 ####[address] [address]Gx# [phone] CBC W/DIFFon 04-28-2017 BASO ABS 0.10 K/CU MM Normal 0-0.2 [facility] Comment on above: Order Comment: Campu s: M Performed By: #### L 500.43331, L500.05550 ####[facility] [address]ZMCDNLR[address] [place] [address]Ac# [phone] Basophils/100 WBC Auto (Bld) 1.5 % Normal 0-2 [facility] Comment on above: Order Comment: Campu s: M Performed By: #### L 500.35331, L500.18281 ####[facility] OZMWDSNMPM[address] [place] [address]Ek# [phone] EOS ABS 0.20 K/CU MM Normal 0-0.5 [facility] Comment on above: Order Comment: Campu s: M Performed By: #### L 500.27500, L500.65993 ####[facility] IXFLLGTOFN[address] [place] [address]Gm# [phone] Eosinophils/100 leukocytes 3.6 % Normal 0-5 [facility] Comment on above: Order Comment: Campu s: M Performed By: #### L 500.77495, L500.55262 ####[facility] JZHJNJIQKS[address] [place] [address]Vy# [phone] Erythrocyte distribution width Auto Ratio (RBC) 13.5 % Normal 11-14.5 [facility] Comment on above: Order Comment: Campu s: M Performed By: #### L 500.80169, L500.53820 ####[address] [address]Od# [phone] Erythrocytes (RBC) 0.0 % Normal Less than 1 [facility] Comment on above: Order Comment: Campu s: M Performed By: #### L 500.53865, L500.57076 ####[address] [address]Tz# [phone] Erythrocytes (RBC) 3.19 M/CU MM Low 3.90-5.30 [facility]: Order Comment: Campu s: M Performed By: #### L 500.18476, L500.08521 ####[address] [address]Dt# [phone] Hematocrit (HCT) 28.8 % Low 35.0-47.0 [facility] Comment on above: Order Comment: Campu s: M Performed By: #### L 500.92976, L500.73566 ####[facility] BYLHJPOVRT[address] [place] [address]Po# [phone] Hemoglobin mass conc (Bld) 9.2 g/dL Low 11.5-15.5 [facility] Comment on above: Order Comment: Campu s: M Performed By: #### L 500.35233, L500.79244 ####[facility] EDBJQQRGDX0683 [place], [place] [address]Mg# [phone] IMMATR GRAN ABS 0.00 K/CU MM Normal Less than 2 [facility] Comment on above: Order Comment: Campu s: M Performed By: #### L 500.37504, L500.38273 ####[facility] KAEBIPOOAJ3309 [place], [place] [address]Ih# [phone] IMMATURE GRAN % 0.4 % Normal Less than 2 [facility] Comment on above: Order Comment: Campu s: M Performed By: #### L 500.95683, L500.66628 ####[place] [address]Ph# [phone] Lymphocytes 2.20 K/CU MM Normal 0.9-4.4 [facility] Comment on above: Order Comment: Campu s: M Performed By: #### L 500.52441, L500.04467 ####[place] [address]Ph# [phone] Lymphocytes/100 leukocytes 41.5 % High 20-40 [facility] Comment on above: Order Comment: Campu s: M Performed By: #### L 500.24834, L500.94015 ####[address] [address]Kv# [phone] MCHC mass conc (RBC) 31.9 g/dL Low 32.0-36.0 [facility] Comment on above: Order Comment: Campu s: M Performed By: #### L 500.65560, L500.69669 ####[place] [address]Ph# [phone] MCV 90.3 fL Normal 80.0-99.0 [facility] Comment on above: Order Comment: Campu s: M Performed By: #### L 500.15490, L500.45951 ####[facility] E[address]ONPHQVVM[address] [place] [address]Je# [phone] MONO ABS 0.60 K/CU MM Normal 0.1-1.1 [facility] Comment on above: Order Comment: Campu s: M Performed By: #### L 500.23331, L500.69269 ####[facility] FFSGHVXQVT8961 [place] [address]Hm# [phone] Monocytes/100 leukocytes 10.4 % High 2-10 [facility] Comment on above: Order Comment: Campu s: M Performed By: #### L 500.47201, L500.40323 ####[address] [address]Au# [phone] Neutrophils 2.30 K/CU MM Normal 2.0-8.3 [facility] Comment on above: Order Comment: Campu s: M Performed By: #### L 500.73307, L500.84734 ####[place] [address]Ph# [phone] Neutrophils/100 WBC Auto (Bld) 42.6 % Low 45-75 [facility] Comment on above: Order Comment: Campu s: M Performed By: #### L 500.48107, L500.84741 ####[address] [address]Ml# [phone] Platelet mean volume (PMV) 8.4 fL Low 9.4-12.4 [facility] Comment on above: Order Comment: Campu s: M Performed By: #### L 500.37459, L500.44986 ####[address] [address]Ix# [phone] Platelets 482 K/CU MM High 150-450 [facility] Comment on above: Order Comment: Campu s: M Performed By: #### L 500.42265, L500.99577 ####[facility] [id number] [place] [address]Dy# [phone] WBC (Leukocytes) 5.3 K/CU MM Normal 4.5-11.0 [facility] Comment on above: Order Comment: Campu s: M Performed By: #### L 500.91870, L500.66327 ####[facility] [id number] [place] [address]Cn# [phone] GFR ESTon 04-28-2017 IF AMER Greater than [address] [facility] Comment on above: Order Comment: Campu s: M Performed By: #### L 500.46843, L500.47662 ####[facility] ROAEWZNVFL9282 [place], [place] [address]Uo# [phone] IF non-AFR AMER Greater than [address] [facility] Comment on above: Order Comment: Campu s: M Performed By: #### L 500.09286, L500.11955 ####[facility] [id number] [place] [address]Pt# [phone] PROG.MTSon 04-28-2017 PROG.[facility] Patient Name: LEANNE WHEELER[address] [place] [address] Date of : [address] [address] Unit Number: [id number] Number: [id number] Note-[facility] Patient Status: ADM INAttending Doctor: Andrei Andrea MDService Date: 04/28/17 1134SubjectiveS: (2 ROS minimum)No acute events overnight. Patient pain is under control. Patient is tolerating POintake.Objective (ROS)Nursing VitalsVital Signs (Last)ResultDate TimePulse Df6497/04 1132B/P134/7701/04 5789Yaqg18.301/04 3254Vvlfv3110/04 6014Svqb7427/04 0715General AppearanceCaucasian female who appears stated age in no acute distressPhysical ExamNeurological / Psychiatric DrowsyHEENT No TraumaRespiratory Normal Breathing Effort, Clear LungsCardiovascular Heart RRR, No M / R / GGastrointestinal Normal Bowel Sounds, Non TenderMusculoskeletal Right lower extremity has bandage in place with no drainage.Skin Right lower extremity has bandage in place with no drainageDiagnostic Data:Lab 24hr (CBC/BMP Fishbone)04/28/17 0621:[Embedded Image Not Available]Anion Gap 8, Est GFR ( Amer) Greater than 60, Est GFR (Non-Af Amer) Greater than 60, BUN/Creatinine Ratio 23, Glucose 84, Total Calcium 8.4 L, RBC 3.19 L, MCV 90.3, MCHC31.9 L, RDW 13.5, MPV 8.4 L, Immature Gran % (Auto) 0.4, Abs Immat Gran (auto) 0.00, SegNeutrophils % 42.6 L, Lymphocytes % 41.5 H, Monocytes % 10.4 H, Eosinophils % 3.6,Basophils % 1.5, Neutrophils # 2.30, Lymphocytes # 2.20, Monocytes # 0.60, Eosinophils #0.20, Basophils # 0.10, Nucleated RBCs 0.0Assessment and PlanConclusion1. ACUTE RIGHT LOWER EXTREMITY OPEN WOUNDS- Today patient is drowsy and right lower extremity has bandage in placed- Continue Ortiz past per Plastic surgery recommendation and wound care- Plastic surgery, Dr. Maza consulted and we appreciate his recommendations. We willtouch base with Dr. Maza to see if patient needs surgery, hold off, or no surgery inthe future. Recommendations pending.- ID discontinued Vancomycin and Zosyn, and patient is started on Clindamycin and Unasyn- Wound culture grew Beta hemolytic strep group A- Blood culture show no growth for 48 hours and WBC wnl but thrombocytosis with plateletselevated at 482 (previously 485)- ID is consulted, Dr. Cardenas and we appreciate his recommendations. Antibiotics will bede-escalated appropriately- Pain: Toradol- We will reassess clinically2. HEROIN ABUSE- UDS positive for amphetamines, cannbinoids, and cocaine- HIV negative- Will continue to reassess patient daily for any withdrawal symptoms- Will grief counsellor patient on illicit drug cessation3. Tobacco abuse- Nicoderm 21 mg qday4. Thrombocytosis- Platelets trending down to 482 (previously 485). More likely (i.e. acute phase reactant).- We will continue to monitor with daily labs.5. DVT prophylaxis- Heparin SC 5000 units q8h6. Full code statusDisclaimerThis dictation was created using voice recognition software.Phonetic and/or minor grammatical errors may exist.eSign Date and TimeScoCyndy weathers MD Verified/Reviewed by 04/28/17 Andrei Chamberlain MD [facility] Progress Note-MTS Normal [facility] CBC W/DIFFon 04-27-2017 BASO ABS 0.10 K/CU MM Normal 0-0.2 [facility] Comment on above: Order Comment: Campu s: M Performed By: #### L 500.33147, L500.34734 ####[facility] [id number] [place], [place] [address]Vs# [phone] Basophils/100 WBC Auto (Bld) 1.6 % Normal 0-2 [facility] Comment on above: Order Comment: Campu s: M Performed By: #### L 500.90600, L500.99964 ####[address] [address]Yx# [phone] EOS ABS 0.20 K/CU MM Normal 0-0.5 [facility] Comment on above: Order Comment: Campu s: M Performed By: #### L 500.24613, L500.85809 ####[address] [address]Sl# [phone] Eosinophils/100 leukocytes 3.2 % Normal 0-5 [facility] Comment on above: Order Comment: Campu s: M Performed By: #### L 500.55736, L500.21765 ####[facility] [id number] [place], [place] [address]Ph# [phone] Erythrocyte distribution width Auto Ratio (RBC) 13.8 % Normal 11-14.5 [facility] Comment on above: Order Comment: Campu s: M Performed By: #### L 500.80661, L500.69152 ####[facility] [id number] [place] [address]Cx# [phone] Erythrocytes (RBC) 0.0 % Normal Less than 1 [facility] Comment on above: Order Comment: Campu s: M Performed By: #### L 500.26609, L500.59771 ####[facility] [id number] [place] [address]Fr# [phone] Erythrocytes (RBC) 3.03 M/CU MM Low 3.90-5.[address] [facility] Comment on above: Order Comment: Campu s: M Performed By: #### L 500.63569, L500.87515 ####[facility] WONQ[address]YRYZH[address] [place] [address]Pt# [phone] Hematocrit (HCT) 27.8 % Low 35.0-47.0 [facility] Comment on above: Order Comment: Campu s: M Performed By: #### L 500.30562, L500.29579 ####[address] [address]Lt# [phone] Hemoglobin mass conc (Bld) 8.7 g/dL Low 11.5-15.5 [facility] Comment on above: Order Comment: Campu s: M Performed By: #### L 500.96041, L5.00689 ####[place] [address]Ph# [phone] IMMATR GRAN ABS 0.00 K/CU MM Normal Less than 2 [facility] Comment on above: Order Comment: Campu s: M Performed By: #### L 500.85220, L5.04102 ####[address] [address]Pt# [phone] IMMATURE GRAN % 0.5 % Normal Less than 2 [facility] Comment on above: Order Comment: Campu s: M Performed By: #### L 500.40749, L500.82745 ####[facility] [id number] [place] [address]Xz# [phone] Lymphocytes 2.50 K/CU MM Normal 0.9-4.4 [facility] Comment on above: Order Comment: Campu s: M Performed By: #### L 500.29944, L500.26144 ####[place] [address]Ph# [phone] Lymphocytes/100 leukocytes 39.8 % Normal 20-40 [facility] Comment on above: Order Comment: Campu s: M Performed By: #### L 500.32988, L500.74070 ####[facility] STYYKGTXRM6545 [place], [place] [address]Jz# [phone] MCHC mass conc (RBC) 31.3 g/dL Low 32.0-36.0 [facility] Comment on above: Order Comment: Campu s: M Performed By: #### L 500.83774, L500.01602 ####[facility] AR[address]APXXNS[address] [place] [address]Rr# [phone] MCV 91.7 fL Normal 80.0-99.0 [facility] Comment on above: Order Comment: Campu s: M Performed By: #### L 500.48081, L500.55275 ####[address] [address]Vh# [phone] MONO ABS 0.70 K/CU MM Normal 0.1-1.1 [facility] Comment on above: Order Comment: Campu s: M Performed By: #### L 500.67582, L500.71480 ####[facility] [id number] [place] [address]Ab# [phone] Monocytes/100 leukocytes 10.6 % High 2-10 [facility] Comment on above: Order Comment: Campu s: M Performed By: #### L 500.02145, L500.01342 ####[facility] O[address]ZVBKPPA[address] [place] [address]Dc# [phone] Neutrophils 2.80 K/CU MM Normal 2.0-8.3 [facility] Comment on above: Order Comment: Campu s: M Performed By: #### L 500.54581, L500.58397 ####[facility] HTRKJGENHV7078 [place], [place] [address]Hx# [phone] Neutrophils/100 WBC Auto (Bld) 44.3 % Low 45-75 [facility] Comment on above: Order Comment: Campu s: M Performed By: #### L 500.59684, L500.96064 ####[facility] DOSSCOJXDX3574 [place], [place] [address]Hr# [phone] Platelet mean volume (PMV) 8.6 fL Low 9.4-12.4 [facility] Comment on above: Order Comment: Campu s: M Performed By: #### L 500.74044, L500.29834 ####[facility] [id number] [place], [place] [address]Su# [phone] Platelets 485 K/CU MM High 150-450 [facility] Comment on above: Order Comment: Campu s: M Performed By: #### L 500.77088, L500.47756 ####[facility] [id number] [place], [place] [address]Ni# [phone] WBC (Leukocytes) 6.2 K/CU MM Normal 4.5-11.0 [facility] Comment on above: Order Comment: Campu s: M Performed By: #### L 500.14350, L500.58669 ####[facility] [id number] [place] [address]Xk# [phone] CMPon 04-27-2017 Alanine aminotransferase (ALT) 6 U/L Low 13-61 [facility] Comment on above: Order Comment: Campu s: M Result Comment: RESU LTS MAY BE FALSELY DEPRESSED AFTER THE ADMINISTRATION OFSULFASALAZINE AND/OR SULFAPYRIDINE. Performed By: #### L 500.73398, L500.72235 ####[facility] UWNJJQWEBZ6579 [place], [place] [address]Xy# [phone] Albumin 2.1 g/dL Low 3.2-5.0 [facility] Comment on above: Order Comment: Campu s: M Performed By: #### L 500.57556, L500.81309 ####[facility] IFMFVCNJDP8239 [place], [place] [address]Tv# [phone] Albumin/Globulin Ratio 0.5 {ratio} Low 0.8-2.0 [facility] Comment on above: Order Comment: Campu s: M Performed By: #### L 500.16122, L500.93322 ####[facility] PIZWKOLLOJ9735 [place], [place] [address]Bi# [phone] ALK PHOS 53 U/L Normal 45-117 [facility] Comment on above: Order Comment: Campu s: M Performed By: #### L 500.89901, L500.32556 ####[facility] BCUUDKZSYA[address] [place], [place] [address]Ph# [phone] Anion gap 8 mmol/L Normal 5-16 [facility] Comment on above: Order Comment: Campu s: M Performed By: #### L 500.37934, L500.76566 ####[address] [address]Nw# [phone] BILI TOTAL 0.2 MG/DL Normal 0.2-1.0 [facility] Comment on above: Order Comment: Campu s: M Performed By: #### L 500.78131, L500.27946 ####[facility] [id number] [place] [address]Do# [phone] BUN/Creatinine Ratio 23 mg/mg Normal 15-24 [facility] Comment on above: Order Comment: Campu s: M Performed By: #### L 500.44401, L500.61659 ####[facility] [address]ZW[address] [place] [address]Zf# [phone] Calcium 8.5 mg/dL Normal 8.5-10.1 [facility] Comment on above: Order Comment: Campu s: M Performed By: #### L 500.49079, L500.93871 ####[facility] [id number] [place], [place] [address]Ab# [phone] Chloride 109 mmol/L High 98-107 [facility] Comment on above: Order Comment: Campu s: M Performed By: #### L 500.02931, L500.20610 ####[facility] JTKSKVTDUI5045 [place], [place] [address]Tx# [phone] CO2 24 mmol/L Normal 21-32 [facility] Comment on above: Order Comment: Campu s: M Performed By: #### L 500.68356, L500.11180 ####[facility] PLBALZSYDZ7998 [place], [place] [address]Dn# [phone] Creatinine 0.884 mg/dL Normal 0.510-0.950 [facility] Comment on above: Order Comment: Campu s: M Result Comment: Chapis ents receiving either N-Acetylcysteine (NAC) orMetamizole prior to venipuncture, may have falsely depressedresults. Performed By: #### L 500.83982, L500.25951 ####[facility] CLBDHJRXQV7316 [place], [place] [address]Wg# [phone] Globulin 4.6 g/dL High 2.2-4.2 [facility] Comment on above: Order Comment: Campu s: M Performed By: #### L 500.42956, L500.40933 ####[facility] HVTZTCXEWO8621 [place], [place] [address]Vz# [phone] Glucose mass conc 98 mg/dL Normal 70-100 [facility] Comment on above: Order Comment: Campu s: M Result Comment: 70-1 00- Normal Fasting; 100-125 Impaired Fasting; greaterthan 126 on more than one result- Diabetes. ADA guidelines.Results may be falsely elevated after the administration ofSulfapyridine.Results may be falsely depressed after the administration ofSulfasalazine. Performed By: #### L 500.64822, L500.44945 ####[facility] RBTJSMLQHZ2104 [place], [place] [address]Bj# [phone] Potassium molar conc 4.7 mmol/L Normal 3.5-5.1 [facility] Comment on above: Order Comment: Campu s: M Performed By: #### L 500.08955, L500.84455 ####[facility] FEWTNJBZSZ3205 [place], [place] [address]Td# [phone] Protein 6.7 g/dL Normal 6.0-8.5 [facility] Comment on above: Order Comment: Campu s: M Performed By: #### L 500.86325, L500.30739 ####[facility] OXDSWBOABY0034 [place], [place] [address]At# [phone] SGOT (AST) 4 U/L Low 8-34 [facility] Comment on above: Order Comment: Campu s: M Result Comment: RESU LTS MAY BE FALSELY DEPRESSED AFTER THE ADMINISTRATION OFSULFASALAZINE AND/OR SULFAPYRIDINE. Performed By: #### L 500.79502, L500.00947 ####[facility] XKEWWRSQXI5973 [place], [place] [address]Vj# [phone] Sodium 140 mmol/L Normal 136-145 [facility] Comment on above: Order Comment: Campu s: M Performed By: #### L 500.51528, L500.29068 ####[facility] MRYSUEUXOZ2694 [place], [place] [address]Cw# [phone] Urea nitrogen 20 mg/dL Normal 7-26 [facility] Comment on above: Order Comment: Campu s: M Performed By: #### L 500.28007, L500.73724 ####[facility] KWFOPSIKBN2159 [place], [place] [address]Xr# [phone] GFR ESTon 04-27-2017 IF AMER Greater than [address] [facility] Comment on above: Order Comment: Campu s: M Performed By: #### L 500.76224, L500.01734 ####[facility] [id number] [place] [address]Wa# [phone] IF non-AFR AMER Greater than 60 Normal [facility] Comment on above: Order Comment: Campu s: M Performed By: #### L 500.45400, L500.47278 ####[facility] SQKGJYQUBU4967 [place], [place] [address]Au# [phone] PHA.NOTEon 04-27-2017 PHA.NOTE [facility] Patient Name: NAMRATA WHEELER NW Date of : [address] [address] Unit Number: [id number] Number: [id number] Note Patient Status: ADM INAttending Doctor: Andrei Andrea MDService Date: 04/27/17 1523Pharmacy NoteSubjective:Vancomycin dosingAllergies:Coded Allergies:NO KNOWN DRUG ALLERGIES (04/25/17)Plan:Vanc d/miah. Pharmacy will sign off.DisclaimerThis dictation was created using voice recognition software.Phonetic and/or minor grammatical errors may exist.eSign Date and TimePatel,Ju PharmD Verified/Reviewed by 04/27/17 1524 [facility] Pharmacy Note [facility] PROG.MTSon 04-27-2017 PROG.[facility] Patient Name: NAMRATA WHEELER [address] Date of : [address] [address] Unit Number: [id number] Number: [id number] Note-MTS Patient Status: ADM INAttending Doctor: Andrei Andrea MDService Date: 04/27/17 0900SubjectiveS: (2 ROS minimum)No acute events overnight. Per patient: complains of right lower extremity pain.Otherwise, patient reports that she is tolerating PO intake. Patient also denies anyurinary symptoms and heroin withdrawal. Patient have no other questions, concerns, orcomplaints.Objective (ROS)Nursing VitalsVital Signs (Last)ResultDate TimePulse Cx9571/03 0000B/P118/6901/03 6351Aeei15.001/03 5389Kwexr7557/03 6602Ybsk3868/03 0000General AppearanceCaucasian female who appears stated age in mild acute distressPhysical ExamNeurological / Psychiatric Alert, Orientation X3, Affect NormalHEENT No TraumaRespiratory Normal Breathing Effort, Clear LungsCardiovascular Heart RRR, No M / R / GGastrointestinal Normal Bowel Sounds, Non TenderMusculoskeletal Abnormal Findings:, Right lower extremity show multiple ulcers withlargest once having purulent drainage and mildly erythemato usSkin Abnormal Findings:, Right lower extremity have multiple ulcers with largest one thatis tender and erythematous with purulent drainage.Diagnostic Data:Lab 24hr (CBC/BMP Myra)04/27/17 0600:Sodium Cancelled, Potassium Cancelled, Chloride Cancelled, Carbon Dioxide Cancelled, AnionGap Cancelled, BUN Cancelled, Creatinine Cancelled, BUN/Creatinine Ratio Cancelled,Glucose Cancelled, Total Calcium Luxlzdsax70/03/18 0424:[Embedded Image Not Available]Anion Gap 8, Est GFR ( Amer) Greater than 60, Est GFR (Non-Af Amer) Greater than 60, BUN/Creatinine Ratio 23, Glucose 98, Total Calcium 8.5, Total Bilirubin 0.2, AST 4 L,ALT 6 L, Alkaline Phosphatase 53, Serum Total Protein 6.7, Albumin 2.1 L, Globulin 4.6 H,Albumin/Globulin Ratio 0.5 L, RBC 3.03 L, MCV 91.7, MCHC 31.3 L, RDW 13.8, MPV 8.6 L,Immature Gran % (Auto) 0.5, Abs Immat Gran (auto) 0.00, Seg Neutrophils % 44.3 L,Lymphocytes % 39.8, Monocytes % 10.6 H, Eosinophils % 3.2, Basophils % 1.6, Neutrophils #2.80, Lymphocytes # 2.50, Monocytes # 0.70, Eosinophils # 0.20, Basophils # 0.10,Nucleated RBCs 0.001 1800:Urine Opiates Screen NEGATIVE, Ur Barbiturates Screen NEGATIVE, Ur Phencyclidine ScrnNEGATIVE, Ur Amphetamine Screen POSITIVE, U Benzodiazepines Scrn NEGATIVE, Urine CocaineScreen POSITIVE, U Cannabinoids Screen POSITIVE, Urine Drug Screen Pending, Ur Drug ScreenCommentAssessment and PlanConclusion1. ACUTE RIGHT LOWER EXTREMITY OPEN WOUNDS- Today patient complains of right lower extremity pain.- Plastic surgery, Dr. Maza consulted and we appreciate his recommendations. Per will hold off on surgery and reassess clinically tomorrow. Furthermore, willorder a different ointment designated Agpaste that has silverdine and lidocaine forcleansing of wound and pain control of wound.- Continue Vancomycin and Zosyn.- Wound culture is showing many gram positive cocci.- Blood culture show no growth for 24 hours and WBC wnl but thrombocytosis with plateletselevated at 485 (previously 531)- ID is consulted, Dr. Cardenas and we appreciate his recommendations. Antibiotics will bede-escalated appropriately- Pain: Toradol- We will reassess clinically2. HEROIN ABUSE- Patient denies any withdrawal symptoms.- UDS positive for amphetamines, cannbinoids, and cocaine- HIV negative- Will continue to reassess patient daily for any withdrawal symptoms3. Tobacco abuse- Nicoderm 21 mg qday4. Thrombocytosis- Platelets trending down to 485 (previously 531). More likely (i.e. acute phase reactant).- We will continue to monitor with daily labs.5. DVT prophylaxis- Heparin SC 5000 units q8h6. Full code statusDisclaimerThis dictation was created using voice recognition software.Phonetic and/or minor grammatical errors may exist.eSign Date and TimeScottCyndy MD Verified/Reviewed by 04/27/17 Andrei Roblero MD [facility] Anion gap 7 mmol/L Normal 5-16 [facility] Comment on above: Order Comment: Campu s: M Performed By: #### L 500.63115, L500.19182 ####[facility] VLVFVICLBT2389 [place], [place] [address]Pv# [phone] BUN/Creatinine Ratio 15 mg/mg Normal 15-24 [facility] Comment on above: Order Comment: Campu s: M Performed By: #### L 500.46596, L500.15557 ####[facility] [id number] [place], [place] [address]Of# [phone] Calcium 8.7 mg/dL Normal 8.5-10.1 [facility] Comment on above: Order Comment: Campu s: M Performed By: #### L 500.39351, L500.15490 ####[facility] HSFKMQDPFL7275 [place], [place] [address]Er# [phone] Chloride 108 mmol/L High 98-107 [facility] Comment on above: Order Comment: Campu s: M Performed By: #### L 500.19295, L500.95651 ####[facility] DMMFVNXAJT5381 [place], [place] [address]Or# [phone] CO2 24 mmol/L Normal 21-32 [facility] Comment on above: Order Comment: Campu s: M Performed By: #### L 500.63032, L500.73021 ####[facility] EUPVWEAFVL1110 [place], [place] [address]Ll# [phone] Creatinine 1.020 mg/dL High 0.510-0.950 [facility] Comment on above: Order Comment: Campu s: M Result Comment: Chapis ents receiving either N-Acetylcysteine (NAC) orMetamizole prior to venipuncture, may have falsely depressedresults. Performed By: #### L 500.39499, L5.54858 ####[facility] DEIPUITDOG2687 [place] [address]Ph# [phone] Glucose mass conc 100 mg/dL Normal 70-100 [facility] Comment on above: Order Comment: Campu s: M Result Comment: 70-1 00- Normal Fasting; 100-125 Impaired Fasting; greaterthan 126 on more than one result- Diabetes. ADA guidelines.Results may be falsely elevated after the administration ofSulfapyridine.Results may be falsely depressed after the administration ofSulfasalazine. Performed By: #### L 500.29727, L500.19756 ####[facility] [id number] [place], [place] [address]Xx# [phone] Potassium molar conc 4.5 mmol/L Normal 3.5-5.1 [facility] Comment on above: Order Comment: Campu s: M Performed By: #### L 500.16865, L500.11833 ####[facility] YPMBPJYHNL7080 [place], [place] [address]Pt# [phone] Sodium 139 mmol/L Normal 136-145 [facility] Comment on above: Order Comment: Campu s: M Performed By: #### L 500.86773, L500.57379 ####[facility] XHVIDKWDRO1948 [place], [place] [address]Ay# [phone] Urea nitrogen 15 mg/dL Normal 7-26 [facility] Comment on above: Order Comment: Campu s: M Performed By: #### L 500.05731, L500.71096 ####[address] [address]Hy# [phone] CBC W/DIFFon 04-26-2017 BASO ABS 0.10 K/CU MM Normal 0-0.2 [facility] Comment on above: Order Comment: Campu s: M Performed By: #### L 200.95726 ####[address] [address]Lx# [phone] Basophils/100 WBC Auto (Bld) 1.0 % Normal 0-2 [facility] Comment on above: Order Comment: Campu s: M Performed By: #### L 200.59884 ####[address] [address]Ec# [phone] EOS ABS 0.20 K/CU MM Normal 0-0.5 [facility] Comment on above: Order Comment: Campu s: M Performed By: #### L 200.01399 ####[address] [address]Yh# [phone] Eosinophils/100 leukocytes 2.9 % Normal 0-5 [facility] Comment on above: Order Comment: Campu s: M Performed By: #### L 200.60379 ####[facility] [id number] [place] [address]Yb# [phone] Erythrocyte distribution width Auto Ratio (RBC) 13.5 % Normal 11-14.5 [facility] Comment on above: Order Comment: Campu s: M Performed By: #### L 200.84721 ####[facility] [id number] [place], [place] [address]Ph# [phone] Erythrocytes (RBC) 3.29 M/CU MM Low 3.90-5.[address] [facility] Comment on above: Order Comment: Campu s: M Performed By: #### L 200.90835 ####[facility] [id number] [place], [place] [address]Ye# [phone] Erythrocytes (RBC) 0.0 % Normal Less than 1 [facility] Comment on above: Order Comment: Campu s: M Performed By: #### L 200.59762 ####[facility] [id number] [place], [place] [address]Ph# [phone] Hematocrit (HCT) 28.9 % Low 35.0-47.0 [facility] Comment on above: Order Comment: Campu s: M Performed By: #### L 200.09508 ####[address] [address]Ag# [phone] Hemoglobin mass conc (Bld) 9.6 g/dL Low 11.5-15.5 [facility] Comment on above: Order Comment: Campu s: M Performed By: #### L 200.58268 ####[facility] [id number] [place], [place] [address]Ph# [phone] IMMATR GRAN ABS 0.00 K/CU MM Normal Less than 2 [facility] Comment on above: Order Comment: Campu s: M Performed By: #### L 200.72926 ####[facility] [id number] [place], [place] [address]Ph# [phone] IMMATURE GRAN % 0.5 % Normal Less than 2 [facility] Comment on above: Order Comment: Campu s: M Performed By: #### L 200.27152 ####[facility] ZOCAOOSOPZ0059 [place], [place] [address]Mi# [phone] Lymphocytes 2.30 K/CU MM Normal 0.9-4.4 [facility] Comment on above: Order Comment: Campu s: M Performed By: #### L 200.26881 ####[place] [place], [place] [address]Hy# [phone] Lymphocytes/100 leukocytes 28.9 % Normal 20-40 [facility] Comment on above: Order Comment: Campu s: M Performed By: #### L 200.90806 ####[facility] [id number] [place] [address]Qi# [phone] MCHC mass conc (RBC) 33.2 g/dL Normal 32.0-36.0 [facility] Comment on above: Order Comment: Campu s: M Performed By: #### L 200.34461 ####[place] [address]Ph# [phone] MCV 87.8 fL Normal 80.0-99.0 [facility] Comment [facility] above: Order Comment: Campu s: M Performed By: #### L 200.53681 ####[facility] [id number] [place], [place] [address]Ph# [phone] MONO ABS 0.80 K/CU MM Normal 0.1-1.1 [facility] Comment on above: Order Comment: Campu s: M Performed By: #### L 200.03505 ####[facility] [id number] [place] [address]Kb# [phone] Monocytes/100 leukocytes 10.2 % High 2-10 [facility] Comment on above: Order Comment: Campu s: M Performed By: #### L 200.35091 ####[facility] [id number] [place] [address]Ph# [phone] Neutrophils 4.40 K/CU MM Normal 2.0-8.3 [facility] Comment on above: Order Comment: Campu s: M Performed By: #### L 200.95692 ####[facility] [id number] [place] [address]Zv# [phone] Neutrophils/100 WBC Auto (Bld) 56.5 % Normal 45-75 [facility] Comment on above: Order Comment: Campu s: M Performed By: #### L 200.84750 ####[facility] ZCLLUUCEWP8918 [place], [place] [address]Gz# [phone] Platelet mean volume (PMV) 8.4 fL Low 9.4-12.4 [facility] Comment on above: Order Comment: Campu s: M Performed By: #### L 200.07586 ####[facility] [id number] [place], [place] [address]Br# [phone] Platelets 531 K/CU MM High 150-450 [facility] Comment on above: Order Comment: Campu s: M Performed By: #### L 200.39072 ####[facility] LJPVEPZAAF6500 [place], [place] [address]Kc# [phone] WBC (Leukocytes) 7.8 K/CU MM Normal 4.5-11.0 [facility] Comment on above: Order Comment: Campu s: M Performed By: #### L 200.21810 ####[facility] CSOWWZGNUS8824 [place], [place] [address]Ek# [phone] CRon 04-26-2017 CR DATE OF CONSULTATION : 04/27/2017REASON FOR CONSULTATION: Leg wounds.HISTORY OF PRESENT ILLNESS: This is a 41-year-old female who was admitted throughthe ED on April 25 for leg wounds. She is a chronic heroin abuser and skin-pops inher legs. Around 2 weeks ago, she started developing some superficial wounds whichapparently got secondarily infected. She was seen in an outpatient urgent care andwas prescribed oral antibiotics. The wounds progressed despite this, and she came tot ER for evaluation. She was admitted for open wound to the lower extremity withassociated infection and pain. She states she has never had wounds before fromskin-popping. She denies fevers or chills. She is complaining of pain. She wasseen by the wound nurses yesterday who ordered a silver alginate dressing. She saysthis has not helped with the pain.PAST MEDICAL HISTORY: IV drug abuse.PAST SURGICAL HISTORY: Appendectomy and tubal ligation.ALLERGIES: No known drug allergies.MEDICATIONS: No home medications. She is currently on:1. Zosyn.2. Vancomycin.SOCIAL HISTORY: Heroin abuse as above. Her UDS was also positive for cocaine. Shesmokes cigarettes. Uses alcohol occasionally.FAMILY HISTORY: Her mother has diabetes.REVIEW OF SYSTEMS: Nine systems were reviewed and were negative except as notedabove.PHYSICAL EXAMINATION:General: This is a 41-year-old female who is awake, alert, and oriented. She iscooperative throughout the examination.Extremities: Focused examination of the right lower extremity reveals edema anderythema surrounding multiple small, scabbed wounds. There is 1 large woundmeasuring about 4.5 cm x 5 cm. This is extending into the subcutaneous tissue. Uponremoving the dressing, it is pooled with purulent fluid. There is no necrotic tissueand some slough, with the bases mostly granular tissue.LABORATORY: White blood cell count is 6200 with a hemoglobin of 8.7 and a plateletcount of 485,000. Renal function is normal. Albumin is low at 2.1. Plain film ofright leg revealed no osseous abnormalities. Tissue ulcerations were noted. [facility] PATIENT NAME: NAMRATA WHEELER [facility] Dr. Hinojosa MEDICAL REC #: [id number], [place] [address] DATE: 04/25/17DISCHARGE DATE:CONSULTATION REPORT ATTENDING PHY: Andrei Andrea MDIMPRESSION:1. Non-pressure ulceration of the right lower extremity with associated cellulitissecondary to IV heroin use.2. IV heroin use.RECOMMENDATIONS: I will discontinue the silver alginate and order Ortiz Paste tothese wounds for pain control. There is no necrotic tissue in need of debridement,and thus no surgical intervention will be planned in the immediate future. IVantibiotics for infectious disease. We are awaiting final cultures. She needs tostop shooting heroin.Thank you very much for including me in the care of your patient. __Jerardo Maza, JUNE/[id number]: 04/27/2017 09:25DT: 04/27/2017 10:03SSI File#: [id number] #: [id number]/Reviewed by04/27/17 1134 [facility] PATIENT NAME: JOSS WHEELER[address] [facility] [address] Hinojosa MEDICAL REC #: [id number], [place] [address] DATE: 04/25/17DISCHARGE DATE:CONSULTATION REPORT ATTENDING PHY: Andrei Andrea MD [facility] DATE OF CONSULTATION : 04/26/2017REASON FOR REFERRAL: Right leg cellulitis and wound infection.HISTORY OF PRESENT ILLNESS: Pleasant lady with a history of IV drug use. Has beenusing her leg to inject drugs. Came in with purulent, necrotic, open wounds in theright leg with erythema and swelling. Currently maintained on wide-spectrumantibiotic therapy. Admits to doing drugs recently. No travel. No sick contacts.She had an x-ray done of the right leg revealing no osteomyelitis but scattered lowerextremity soft tissue ulcerations.PAST MEDICAL HISTORY: Positive for IV drug use.SURGICAL HISTORY: Positive for tubal ligation and appendectomy.SOCIAL HISTORY: Positive for smoking and IV drugs as mentioned, heroin and cocaine.ALLERGIES: No known drug allergies.REVIEW OF SYSTEMS: A 10-point review of systems is positive for right leg pain.Otherwise negative.MEDICATIONS AND LABORATORY DATA: Reviewed.PHYSICAL EXAMINATION:General: Pleasant lady who is awake, alert, oriented.Vital Signs: Stable. T-max was 97.3, heart rate 77, respiratory rate 18, bloodpressure 117/67.Oral Exam: Without active lesions.Neck: Supple.Lungs: Clear.Heart: Regular rhythm.Abdomen: Soft.Extremities: Upper and lower extremities without acute changes. Right leg, however,with multiple open wounds that are purulent, erythematous, tender; and some of themare necrotic in nature.HIV testing was negative. Cultures pending. Currently on vancomycin and Zosyn.ASSESSMENT AND PLAN: Unfortunate lady with apkmhkykhpf-ruzz-ibf-related skin andsoft tissue infection of the right leg. In need of plastic surgical consultation foropinion and debridement. Cover methicillin-resistant Staphylococcus aureus andpseudomonas. Follow clinical course and microbiologic data. Further recommendationsto follow. [facility] PATIENT NAME: NAMRATA WHEELER Dr. MEDICAL REC #: [id number], [place] [address] DATE: 04/25/17DISCHARGE DATE:CONSULTATION REPORT ATTENDING PHY: Andrei Andrea MD GIAN Juarez/[id number]: 04/26/2017 16:07DT: 04/26/2017 16:32SSI File#: [id number] #: [id number]/Reviewed by04/26/17 1646 DEVOR[address] [facility] PATIENT NAME: NAMRATA WHEELER Dr. MEDICAL REC #: [id number], [place] [address] DATE: 04/25/17DISCHARGE DATE:CONSULTATION REPORT ATTENDING PHY: Andrei Andrea MD [facility] ED DOCon 04-26-2017 ED DOC PHYSICIAN ASSESSMENT =RECORDS: FlexChartDataEvent Time: 04/25/2017 21:50Status: [facility] [[id number]]Mid- Level Chart (V2b)1975Chart created at 04/25/2017 21:43 by Romario BenitezChart closed at 04/25/2017 21:47Entry in Emergency Department at 04/25/2017 18:15,departure at 04/26/2017 05:22Patient Name: Leanne Wheeler Record Number: [id number]: 04/25/2017 21:43Entered Department at: 04/25/2017 18:15 Patient Seen at:04/25/2017 19:04 Decision to Admitat: 04/25/2017 22:33 PCP: *None,.Chief Complaint:PT REPORTS POSSIBLE INFECTION IN BILATERALLEGS. [facility] FINISHED A COURSE OF ANTIBIOTICS. PT DENIES INJURY. PTIS HEROIN USER DAILYPhysician Performed ProceduresCentral Line on 04/25/2017: Indication: IV access, unableto obtain peripheral IV. Consent: Informedconsent obtained from the patient. Catheter Type: TripleLumen. Insertion Site: Left, Femoral. Vein waspatent and punctured under ultrasound guidance. Completebarrier precautions were used. Blood wasaspirated from all lumens, ports were flushed, and asterile dressing was placed. Anesthesia: 5 mLLidocaine. Sterilized with: Chlorhexidine, Good Flush,Return, Seldinger Technique and Sterile Technique.Secured with sutures and Tegaderm. [facility] PATIENT NAME: NAMRATA WHEELER [facility] Hino[facility] MEDICAL REC #: [id number], [place] [address] DEPARTMENT CHART EMERGENCY DEPARTMENT PHYSICIANAdditional Worksheets (Procedural Ultrasound)Vascular Access:Findings: Real time visualization of anatomy, locatedpercutaneously.Impress ion: Confirmed by: Line Functions US shows line invessel.Additional Worksheets (Procedural Ultrasound)Vascular Access:Findings: Real time visualization of anatomy, locatedpercutaneously.Impress ion: Confirmed by: Line Functions US shows line invessel. at21:47Direct patient care supervision and electronicdocumentation review by Lorna Lamb on 05/03/201700:28.: FlexChartDataEvent Time: 04/25/2017 23:05Status: [facility]igned[facility] Hospital[facility]ace Liam [[id number]]Atte nding Fjarjdikq69 / 1975Chart (V2b)Chart created at 04/25/2017 22:26 by Lorna Kaye closed at 04/25/2017 22:33Entry in Emergency Department at 04/25/2017 18:15Patient Name: Leanne Wheeler Record Number: [id number]: 04/25/2017 22:26Entered Department at: 04/25/2017 18:15 Patient Seen at:04/25/2017 19:04 Decision to Admit [facility] PATIENT NAME: NAMRATA WHEELER Dr. Hinojosa MEDICAL REC #: [id number], [place] [address] DEPARTMENT CHART EMERGENCY DEPARTMENT PHYSICIANat: 04/25/2017 22:33 Historian: Patient PCP: *None,.Chief Complaint:PT REPORTS POSSIBLE INFECTION IN BILATERALLEGS. [facility] FINISHED A COURSE OF ANTIBIOTICS. PT DENIES INJURY. PTIS HEROIN USER DAILYInitial Vital Signs reviewed.Temperature: 98.1 F (36.7 C). Pulse: 86. Respiratory Rate:16. Blood-pressure:124/64. Oxygen Saturation: 100%.History of Present Illness:Patient was brought to the emergency department via self.Chief complaint is right lower extremityinfection.Patient is a 41-year-old female who is a frequent heroinabuser. 2 weeks ago she went to [facility] where she was treated with antibiotics forlower extremity wounds. It sounds as if she hadsome abscesses of the lower extremities. She took the oralantibiotics in these abscesses did open andstarted to drain. Now she has multiple open wounds on theright lower extremity. She has no familydoctor. She finished the antibiotic. She states the woundsare getting bigger and her redness and pain isworsening.She has no headaches or blurry vision. No chest pain orshortness of breath. No cough or congestion.Shes had some low-grade fevers and chills at home. Nonight sweats. No abdominal pain. No nausea orvomiting or diarrhea or constipation. There is no blood inher urine or stool. No dysuria or urinaryfrequency. No vaginal bleeding or discharge. There is nonumbness tingling or weakness in the upper orlower extremities.Review of Systems. Skin: multiple open wounds of varyingsizes on the right lower extremity. Erythematouschanges of the right lower extremity. All other systemsreviewed and negative.. [facility] PAT[facility] MEDICAL REC #: [id number], [place] [address] DEPARTMENT CHART EMERGENCY DEPARTMENT PHYSICIANPast History, Medications, Allergies, Social History andFamily History reviewed in nurses note.Medications: Reviewed RN Note.Allergies: Reviewed RN NoteNo Known AllergiesSocial History: Reviewed RN Note.Family History: Reviewed RN NotePhysical Examination: General: Alert and Well DevelopedHEENT: Normal ENT inspection.Eyes: Lids Normal; . Oropharynx / Throat: NormalPharynx. Neck: No Lymphadenopathy, NoMeningismus and Supple Respiratory: No Resp Distress, Chestnon-tender and Normal Breath SoundsCardio-Vascular: No murmur, No rub and RRR Abdomen: NormalBowel Sounds, No Organomegaly, Non-tender andSoft Back: No CVA tenderness, No Midline Tenderness andNon-tender Extremity: No Calf Tenderness andNormal Equal pulses; bilateral lower extremity edema. Theright lower extremity has multiple open wounds.She has one large open wound on the right lower extremity.She has some significant surrounding erythemato all of her wounds. She has normal dorsalis pedis pulsesbilaterally. Neurological: Alert, Oriented X3and No Gross Weakness Skin: No rash, No Petechiae, Warm andDry Psychological: Mood/Affect Normal andNormal Memory/JudgmentCBC W/DIFF, information as of 04/25/2017, 8:01 pm91.0/ 11.2* /10.7 andgt;------andlt; 521*/ 35.5 /N:74.7BASO ABS: 0.10 K/Cu Mm; BASOPHIL %: 1.0 %; EOS ABS: 0.20K/Cu Mm; EOSINOPHIL %: 1.7 %; HYPO: 1+; IMMATRGRAN ABS: 0.00 K/Cu Mm; IMMATURE GRAN %: 0.4 %; LYMPH %:16.8 %; LYMPH ABS: 1.80 K/Cu Mm; MCHC: 31.5Gm/Dl; MONO ABS: 0.60 K/Cu Mm; MONOCYTE %: 5.4 %; MPV: 8.5;NEUTROPHIL ABS: 8.00 K/Cu Mm; NRBC: 0.0 %;PLT EST: Mod Increased; RBC: 3.90 M/Cu Mm; RDW: 13.8 [facility] PATIENT NAME: NAMRATA WHEELER [facility] Hinojosa MEDICAL REC #: [id number], [place] [address] DEPARTMENT CHART EMERGENCY DEPARTMENT PHYSICIANBMP, information as of 04/25/2017, 8:01 pm138 --------+--------+--------and lt; 111* Anion Gap = 104.8 BUN/CREA: 14; CALCIUM TOTAL: 9.2 Mg/DlLACTATE BLOOD, information as of 04/25/2017, 8:00 pmLACTATE BLOOD: 1.33 Mmol/LImaging Study Obtained:TIBIA/FIBULA RTRadiology: Interpreted by Radiologist.x-ray of the right tib-fib shows no acute osseousabnormality. She has scattered lower extremity softtissue irregularities, consistent with stated history ofwounds. Mild lower extremity edema..Medical Decision MakingWhile here in the emergency department obtaining IV accesswas difficult. We did get a femoral line.Blood work and blood cultures were obtained.Blood work was reviewed by myself. Please see the chart.X-ray the right lower extremity shows no bonyinvolvement. She was started on IV antibiotics.At this point my concern is that she does have significantwounds and cellulitic changes of the lowerextremity on the right. She has no family doctor. I dobelieve she needs to be continued on IVantibiotics and starting of wound care. I did give her doseIV antibiotics here.He did communicate with [facility]. They will be admitting thepatientClinical Impression:1. acute right lower extremity cellulitis2. acute right lower extremity open wounds3. heroin abuse [facility] PATIENT NAME: NAMRATA WHEELER [facility] Hinojosa MEDICAL REC #: [id number], [place] [address] DEPARTMENT CHART EMERGENCY DEPARTMENT PHYSICIANDisposition: Admitted . Condition: StableMSE completed.I was the primary ED attending.. at 22:32 ===DISCHARGE REPORT===: FlexChartDataEvent Time: 04/25/2017 21:50: FlexChartDataEvent Time: 04/25/2017 23:05 DEMO GRAPHICS E mergiso Patient: LEANNE Menardx: FDOB: 1975Age: 41 yrAccount No: [id number]: [id number] Date: 18:15 04/25/2017Address: [address]Address: [place] [address] JRZB STRATION E D Number: [id number]: Marital Status: SFinancial Class: CAIDHMO TR IAGE Prior ity: 3 - UrgentComplaint: InfectionStated Complaint: PT REPORTS POSSIBLE INFECTION INBILATERAL LEGS. PT SEEN AT [facility] 2 WEEKS AGO ANDFINISHED A COURSE OF ANTIBIOTICS. PT DENIES INJURY. PT DEEPA USER DAILYArrival Date: 04/25/2017 18:15Triage Date: 04/25/2017 18:34 [facility] PATIENT NAME: LEANNE WHEELER[address] [facility] MEDICAL REC #: [id number], [place] [address] DEPARTMENT CHART EMERGENCY DEPARTMENT PHYSICIANMode of Arrival: Ambulatory/Walk-InWC: LOURDESanguage: EnglishTransport: Walk-In BE D C36 In: 04/25/2017 19:04:11 04/25/201719:04:11 JJTC36 (Removed From) Out: 04/25/2017 22:59:52004/25/2017 22:59:52 VDPAC32 In: 04/25/2017 22:59:52 04/25/201722:59:52 VDPAC32 (Removed From) Out: 04/26/2017 05:22:40004/26/2017 05:22:40 MMR2 PROVI DERS MD Lorna Lamb Provider Contact: :04:30 MFFEnd:CRISTIANA LAUREN Provider Contact: :38:38 VDPAEnd:ANIL Benitez Provider Contact: :14:50 Rosiod:CRISTIANA PATEL Provider Contact: 04/25/201723:44:21 KKOEnd:Lulu Vidales Provider Contact: 04/26/201703:34:12 RHM4Rar: T RIAGE HISTORY [facility] PATIENT NAME: LEANNE WHEELER[address] [facility] [address] Hinojosa MEDICAL REC #: [id number], [place] [address] DEPARTMENT CHART EMERGENCY DEPARTMENT PHYSICIAN ALLERGIESAllergic To: No Known Allergies 04/25/2017 18:41 SXMILLNESSIllness: *None 04/25/2017 18:41 SXMPAST SURGERY HISTSurgery: Mfqmbllpasfo16/01/2018 18:41 SXMSurgery: Tubal Jyyxjsxw62/01/2018 18:41 SXMPAST SOCIAL HISTSocial History: Communicates without kesbdfqsip61/01/2018 18:41 SXMSocial History: Lives with family or significant other04/25/2017 18:41 SXMSocial History: Alcohol - None 04/25/2017 18:41 SXMSocial History: Smoker-1 PPD 04/25/2017 18:41 SXMSocial History: Recreational Drugs - Frequent-HEROIN/day 04/25/2017 18:41 SXMSocial History: Denies Domestic Violence 04/25/201718:41 SXMSocial History: Denies thoughts of self harm.04/25/2017 18:41 SXMSocial History: Have you traveled in the past month?Where NO 04/25/2017 18:41 SXMPAST PHARMACY ANALYST HISTSocial History: Last Menstrual Period 2 WEEKS AGO04/25/2017 18:41 SXMIMMUNIZATIONSImmunization: Flu Vaccine-no 04/25/2017 18:41 SXM *[facility] PATIENT NAME: NAMRATA WHEELER Dr. Hinojosa MEDICAL REC #: [id number], [place] [address] DEPARTMENT CHART EMERGENCY DEPARTMENT PHYSICIAN NURSING ASSESSMENT ASSESSME NT NOTES 04/2017 19:30 attempted IV unsuccessfully. Ashley notified. 04/25/2017 19:31 VDPA04/25/2017 19:38 patient presents with two large woundsto R lower leg from injection of heroin. She states thatshe was previously treated with antibiotics, however, thetreatment was unsuccessful. There is purulent drainagenoted from a large 4x4 wound on the R lower leg.04/25/2017 19:40 VDPA TREAT MENT 04/25 21:56 Hourly Rounding - Rounding 04/25/201721:57 VDPAElimination/Toileting NPain 7Position Comfortable YSafe Environment YAssessment Note pt resting in bed watching televisionFall Risk Change N004/25/2017 21:56 Primary DOC Guide - A. Patient Qnihjpm0404/25/2017 21:57 VDPAPrimary History Source PatientAvian Exposure - Been exposed to or in contact with anybird or chicken in the last 30 days NoAvian Exposure - Work on a bird or chicken farm orprocessing plant NoTB Screening All Negative ExceptLatex Allergy Screen All Negative ExceptTravel History - Traveled outside of the state in thelast 30 days NoTravel History - Had contact with a person who hastraveled outside the state in the last 30 days No04/25/2017 21:57 Primary DOC Guide - B. Fall RiskAssessment (Age andlt;65) 04/25/2017 21:57 VDPAHistory of Falling in last 3 months? No (0)Confusion or Disorientation? No (0) *[facility] PATIENT NAME: NAMRATA WHEELER [facility]ino[facility] REC #: [id number], [place] [address] DEPARTMENT CHART EMERGENCY DEPARTMENT PHYSICIANIntoxicated or Sedated? No (0)Impaired Gait? No (0)Mobility Assist Device Used? No (0)Altered Elimination? No (0)Fall Risk Score 1-2 Points = Low Risk. 3-4 Points =Moderate Risk. 5 or more points = High Risk. 0Fall Score Greater andgt;= 3? No04/25/2017 21:57 Primary DOC Guide - D. PsychosocialAssessment 04/25/2017 21:57 VDPAOver the Last 2 weeks, how often have you had littleinterest or pleasure in doing things (2) More than half thedaysIs Psychosocial Assessment Score 3 or more? If score is3 or more please consult ED Navigator! NoTotal Psychosocial Assessment Score 4Over the last 2 weeks, how often have you been feelingdown, depressed or hopeless (2) More than half the days04/25/2017 21:57 Primary DOC Guide - E. Family ViolenceAssessment 04/25/2017 21:57 VDPAWithin the past year, has anyone ever pushed, shoved,slapped, choked, hit, punched or kicked you: NoWithin the past year, has anyone ever pressured orforced you to have sexual activities when you did not wantto: NoDo you feel safe and well cared for: YesIs there a partner from a previous or currentrelationship that is making you feel unsafe now: NoFamily Violence Clinical Observation All Negative Lhjyjt0604/25/2017 22:17 Physician Call - Giovanna Beltrán 221604/25/2017 22:48 MEMB04/25/2017 22:19 Physician Call - Dr. Castillo at 221804/25/2017 22:48 MEMB MEDIC ATIONS IV IV Fluid: B 04/25/2017 21:54 04/25/2017 21:55VDPA [facility] PATIENT NAME: LEANNE WHEELER[address] [facility] MEDICAL REC #: [id number], [place] [address] DEPARTMENT CHART EMERGENCY DEPARTMENT PHYSICIANLine #: 1 Rate: ml/hr Location: femoralvein leftNotes: central line triple lumen inserted by Nadia I AND O VITALS =========VS-ROUTINE Time: 04/25/2017 18:34B/P: 124/64 - Right Upper Arm - Sitting - MachinePulse: 86 - Monitor Resp: 16Sa02: 100 Room Air Temp: 98.10 F - Oral04/25/2017 18:41 SXMVS-Pain Time: 04/25/2017 18:34 Pain Level: 6004/25/2017 18:41 SXMVS-GCS Time: 04/25/2017 18:34 Visual: 4 Verbal: 5 Motor:6 GCS Total: 15 04/25/2017 18:41 SXMVS-HT/WT Time: 04/25/2017 18:34 Ht: 157.4 cm StatedWeight: 63.5 kg Actual 04/25/2017 18:41 SXMVS-Visual Time: 04/25/2017 18:34 04/25/2017 18:41 SXMVS-FHT Time: 04/25/2017 18:34 04/25/2017 18:41SXMVS-Notes Time: 04/25/2017 18:34 MAP 88 04/25/201718:41 SXMVS-ROUTINE Time: 04/25/2017 21:54B/P: 132/80 - Right Upper Arm - Lying - Machine Pulse:90 - Monitor Resp: 18Sa02: 98 Room Air 04/25/2017 21:54 VDPAVS-Pain Time: 04/25/2017 21:54 Pain Level: 7004/25/2017 21:54 VDPAVS-GCS Time: 04/25/2017 21:54 Visual: 4 Verbal: 5 Motor:6 GCS Total: 15 04/25/2017 21:54 VDPAVS-HT/WT Time: 04/25/2017 21:54 04/25/2017 21:54 VDPAVS-Visual Time: 04/25/2017 21:54 04/25/2017 21:54 VDPAVS-FHT Time: 04/25/2017 21:54 04/25/2017 21:54VDPAVS-Notes Time: 04/25/2017 21:54 map 99 04/25/201721:54 VDPA ORDER S [facility] PATIENT NAME: NAMRATA WHEELER [facility] [address] MEDICAL REC #: [id number], [place] [address] DEPARTMENT CHART EMERGENCY DEPARTMENT PHYSICIAN*Status: Inpatient 04/25/2017 22:35N/AOrdered: 04/25/2017 22:33 By . OtherReviewed: 04/25/2017 22:35 By . OtherEXTERN ORDER: GFRP 04/25/2017 20:27NoneOrdered: 04/25/2017 20:27 Completed Time:04/25/2017 20:27 Results Time: 04/25/2017 20:27IV hl04/25/2017 21:53N/AOrdered: 04/25/2017 19:17 By Lorna Camargoompleted Time: 04/25/2017 21:53 By Lorna Rogers with diff 04/25/2017 20:51N/AOrdered: 04/25/2017 19:17 By Lorna Camargoompleted Time: 04/25/2017 20:51 By Lorna Gomezed Time: 04/25/2017 20:15 VDPAResults Time: 04/25/2017 20:51BMP 04/25/2017 20:27N/AOrdered: 04/25/2017 19:17 By Lorna Camargoompleted Time: 04/25/2017 20:27 By Lorna Gomezed Time: 04/25/2017 20:15 VDPAResults Time: 04/25/2017 20:27Blood culture x 2 (draw prior to ATB) 04/26/2017 04:14N/AOrdered: 04/25/2017 19:17 By Lorna Camargoompleted Time: 04/26/2017 04:13 By Lorna Aguilera Time: 04/25/2017 22:04 VDPAQuestion: Shiv Source BloodAnswer: BloodQuestion: Shiv Description BloodAnswer: Peripheral (Venous)Lactic Acid Blood (POC) 04/25/2017 20:08N/AOrdered: 04/25/2017 19:17 By Lorna Hunt Time: 04/25/2017 20:08 By Lorna Maciel Time: 04/25/2017 20:07 [facility] PATIENT NAME: LEANNE WHEELER[address] [facility] [address] MEDICAL REC #: [id number], [place] [address] DEPARTMENT CHART EMERGENCY DEPARTMENT PHYSICIANEvangelina/flavio (right) 04/25/2017 19:41N/AOrdered: 04/25/2017 19:17 By Lorna Hunt Time: 04/25/2017 19:41 By Lorna Shindication: Infection/woundsNoted Time: 04/25/2017 19:36Question: Are you or think you might be ?Answer: NOQuestion: How is patient transported? (A = Ambulatory, B =Bed, C = Carry, CR = Crib, P = Portable, S = Stretcher, W =Wheelchair, X = Wide Wheelchair, XT = Trauma X RM17 (EDOnly))Answer: STRETCHERUnasyn (IV)(3gm IVPB) DOSE: 3 gmIV 04/25/2017 21:53N/AOrdered: 04/25/2017 19:17 By Lorna Hunt Time: 04/25/2017 21:53 By Lorna Aguilera Time: 04/25/2017 21:45 VDPA DISCH ARGE Diagn osis: acute right lower extremity cellulitisAcute right lower extremity open woundsHeroin abuseadmission to [facility] 04/25/2017 22:33Disposition: Time: 04/25/2017 22:33By: Lorna Ortiz Time: 04/26/2017 05:22Type: *Admission to FloorCondition: Stable for admission/discharge/transfera ft emergency evaluation/treatment Category: *NOTAPPLICABLEConcurred: 04/25/2017 22:35 Referral:04/25/2017 22:33Admit Physician: Service, Mts PRESCR IPTIONS [facility] PATIENT NAME: NAMRATA WHEELER Dr. MEDICAL REC #: [id number], [place] [address] DEPARTMENT CHART EMERGENCY DEPARTMENT PHYSICIANCHARGES SI GNATURE Giulia kala BraunMarya TECH 3 Ita Vidales MMR2 [facility] PATIENT NAME: NAMRATA WHEELER Dr. MEDICAL REC #: [id number], [place] [address] DEPARTMENT CHART EMERGENCY DEPARTMENT PHYSICIAN [facility] ED Documentation This is a preliminar y report only, as the practitioner review and authentication has not occurred. Normal [facility] GFR ESTon 04-26-2017 IF AMER Greater than 60 [facility] Comment on above: Order Comment: Dezu s: M Performed By: #### L 500.29343, L500.80116 ####[facility] [id number] [place], [place] [address]Jg# [phone] IF non-AFR AMER 60 ML/MIN [facility] Comment on above: Order Comment: Dezu s: M Performed By: #### L 500.07933, L500.88328 ####[facility] A[address]FCBFYPS[address] [place], [place] [address]Kr# [phone] HIV 1/2on 04-26-2017 HIV 1/O/2 QUAL NONREACTIVE Normal NONREACTIVE [facility] Comment on above: Order Comment: ADD O N TO BLOOD ALREADY DRAWN Result Comment: NONR EACTIVE: LESS THAN 1.0 INDEX VALUETHIS ASSAY DETECTS HIV p24 ANTIGEN AND ANTIBODIES TO HIV-1AND HIV-2 BY THE AD[facility]IA [facility] CHIV ASSAY. Performed By: #### L 540.45369 ####[facility] [id number] [place] [address] 14038Ab# [phone] HP.IMS.ADMon 04-26-2017 Admission-H&P [facility] HP.IMS.ADM [facility] Patient Name: LEANNE WHEELER[address] [facility] Date of : [address] [address] Unit Number: [id number] Number: [id number] Patient Status: ADM INAttending Doctor: Andrei Andrea MDService Date: 04/25/17 2257History of Present IllnessSource of Information PatientChief Complaint/Present Illness:Purulent discharge from large open wounds.History of Present IllnessPCP: None.Patient is a 41-year-old female with a past medical history significant for cat-scratch disease, IV drug abuse including heroin with last use yesterday as well assnorting cocaine with last use a week ago presented to [facility] complaining of bilaterallower extremity pain and purulent discharge from large wounds. Per patient, she statedthat she's been an IV drug abuser for many years and has been injecting heroin in herlower extremities via skin popping. She stated that on April 11, she went to [facility] room complaining of swelling in her legs, at that time she was diagnosed withlower extremity cellulitis and discharged home on clindamycin 300 mg for 7 days. Patientreported that when she went to [facility], she did not have the presenting symptoms of largewounds with purulent drainage, but only had erythema, swelling and multiple closedlesions. She stated that only 2 days ago, her lesions popped open and has been constantlydraining a bloody and purulent drainage, so she decided to come to [facility] for furtherevaluation. Patient described her symptoms as initially starting off as what looks like asmall rash that develops into ulcers that eventually pop leading to her currentpresentation. She did mention that the site of the open wounds are previous sites ofheroin injection. She denied any fever at home. She stated that she was last tested forHIV about 6 months ago with negative results. She reported that she uses her own needlesto inject heroin. In the ER, patient's vital signs were stable. Initial blood work showeda white blood cell count of 10.7, platelet count was elevated at 521. Lactic acid waswithin normal limits at 1.3. BMP was within normal limits. RLE X-ray showed No acuteosseous abnormality. Scattered lower extremity soft tissue irregularities, consistent withstated history of wounds. Mild lower extremity edema. Patient received a one-time dose ofUnasyn. She also had a femoral line placed secondary to poor IV access. [facility] was contactedprompting hospital admission.Past Medical/Surgical HxPast Medical History1. IVDA.Past Surgical History1. Appendectomy.2. Tubal Ligation.Family/Social HistoryFamily Hx Other/CommentMother: DM.Social Hx1. Active smoker of 1PPD for over 20 years.2. Social alcohol drinker.3. IVDA: Heroin and Cocaine.4. Lives with boyfriend, has 2 kids.Allergies/Home MedicationsAllergiesCoded Allergies:NO KNOWN DRUG ALLERGIES (04/25/17)Home MedicationsNo Known Home MedicationsLast Action: Reviewed on 04/26/17 @ 1242 by Juan Miguel VENTURA [facility] Memorial HospitalConstitutionalReports: Chills. Denies: Fever.EENTDenies: Vision Change, Sore Throat, Tinnitus.CardiovascularReport s: Leg Swelling. Denies: Chest Pain, Palpitations, Syncope.PulmonaryDenies: Dyspnea, Cough.GastrointestinalDenies: Abdominal Pain, Nausea, Vomiting, Diarrhea, Constipation.GenitourinaryDen ies: Dysuria, Hematuria.MusculoskeletalRepo rts: Joint Pain, Lower Extremity Pain.SkinReports: Extremity Pain, Leg Pain, Leg Swelling.LymphaticReports: Leg Swelling.EndocrineDenies: Cold Intolerance, Heat Intolerance.NeuroReports: Headache. Denies: Numbness, Weakness, Tingling.PsychiatricDenies: Depression, Anxiety.Physical ExamPhysical Exam SummaryGeneral: Patient is alert and oriented x3 and is in no acute respiratory distress. Pt. issitting comfortably in bed with no signs of physical distress.Eyes: PERRLA. Intact EOM.Neck: Supple. Negative hepatojugular reflux or jugular venous distention, negative carotidbruit.Cardiac: Chest is symmetrical. Non-tender to palpation. Regular rhythm and rate, S1-T9ahsuaa normal limits, no murmurs, gallops were appreciated, no rubs.Lungs: Pt. on room air. Clear to auscultation bilaterally, no wheezing, rales, or rhonchi.Abdomen: Soft, nontender, nondistended to palpation. Positive bowel sounds.Extremities: Bilateral LE erythema and swelling with multiple large open wounds.Skin: Right LE: multiple open wounds, largest measuring 6evs4fi with purulent drainage, upto 10 open wounds on RLE from thigh down to ankle. No wounds on bilateral feet. Left LE:small wound measuring 1x1cm. There's an erythematous area measuring 5rek1rz on anteriorleft thigh.Lymphatic: Negative cervical, supra-clavicular lymphadenopathy.Neurologic: Cranial nerves from II-XII intact grossly.Psychiatry: Affect congruent with mood.Conclusion / PlanConclusion1. SKIN AND SOFT TISSUE INFECTION OF BILATERAL LOWER EXTREMITIES.- Patient presents to [facility] ER complaining of bilateral lower extremity pain, swelling andpurulent drainage of large open wounds on her right lower extremity. She presented [facility] ER on April 11, at that time, she was diagnosed with bilateral lower extremitycellulitis and discharged home on clindamycin for 7 days. Patient took the prescribedantibiotics, however did not notice any improvement. She reported that 2 days ago, herulcers popped open and has been draining a bloody and purulent discharge.- On Physical exam, her right lower extremities has multiple large open wounds with activedrainage. She mentioned that the presenting wounds are sites of prior heroin injection.- At this time, our working diagnosis is skin and soft tissue infection of the bilaterallower extremities secondary to IV heroin injections vs. vasculitis.- In the ER, patient received a one-time dose of Unasyn.- We will start the patient on Vancomycin and Unasyn.- We are pending blood cultures and wound cultures.- For pain management, we will start the patient on Toradol given her history of opiateabuse.- If blood cultures are positive, then We will also order an echocardiogram to evaluatefor any valvular vegetation.- We will also consult Infectious Disease for further evaluation.- We'll also consult wound care further evaluation.2. HEROIN ABUSEPatient is a current heroin IV drug user via skin popping. Patient stated she's been usinghere with multiple years and injects heroin in her bilateral lower extremities.Patient was educated on risks associated with her continuous heroin abuse. She wasinformed that her presenting symptoms are secondary to her injecting heroin in her legs.Patient denied going through heroin withdrawals in the past because if she felt thesymptoms coming, she would inject heroin.At this time, given patient's presenting symptoms with her history of heroin abuse, Idiscussed with her managing her pain with non-opioids medications. Patient was inagreement.3. Tobacco abusePatient currently smokes at least one pack per day. Patient's been a chronic smoker forover 20 years.We will start the patient on NicoDerm patch.4. DVT prophylaxisHeparin subcutaneous.5. Full code statusCollaborating PhysicianAndrei Andrea MDExpected Stay More than 2 daysDisclaimerThis dictation was created using voice recognition software.Phonetic and/or minor grammatical errors may exist.eSign Date and TimeFribourLopez avalos MD Verified/Reviewed by 04/28/17 1308Andrei Andrea MD [facility] PN DATE OF SERVICE: 04/27/2017REASON FOR FOLLOWUP: Right leg complicated wound infection.A pleasant lady with history of IV drug use, growing beta hemolytic strep A in herright leg complicated necrotic wounds, purulent in nature, related to IV drug use.PHYSICAL EXAMINATION:General: Comfortable in bed.Vital signs: Afebrile. Vital signs with a temperature of 97.8, heart rate 72,respiratory rate 20, blood pressure 142/77.Neck: Supple.Lungs: Clear.Heart: Regular rhythm.Abdomen: Soft and benign.Musculoskeletal: Right leg multiple wounds and necrotic, purulent, erythematous, andtender to touch. Cultures reviewed.PLAN: The plan for this lady with complicated right leg wound infections is to beseen by Plastic Surgery for debridement. Adjust antibiotic therapy to Unasyn andclindamycin. Obtain HIV status and hepatitis profile. Further recommendations tofollow. ___GIAN Baptiste/[id number]: 04/27/2017 13:14DT: 04/27/2017 13:43SSI File#: [id number] #: [id number]/Reviewed by04/28/17 1454 DEVORAH [facility] PATIENT NAME: NAMRATA WHEELER [facility] [address] MEDICAL REC #: [id number], [place] [address] DATE: 04/25/17DISCHARGE DATE:PROGRESS NOTE ATTENDING PHY: Andrei Andrea MD [facility] PN DATE OF SERVICE: 04/28/2017For right leg complicated wound infection with history of IV drug use. Culturesrevealed beta amyloid group A, currently on Unasyn and clindamycin. Plastic surgeryto debride.Awake and alert. Vital signs were stable. Temperature of 97.7, heart rate 67,respiratory rate 18, blood pressure 140/75, oral exam without active lesions. Awake,alert, oriented. Neck is supple. Lungs clear. Heart: Regular rhythm. Abdomensoft and benign. Right leg with less erythema around the necrotic multiple lesions.No acute changes seen on my previous examination.Labs and data reviewed.ASSESSMENT AND PLAN: Pleasant lady with intravenous drug use and right legcomplicated skin and soft tissue infection and multiple wounds, necrotic in natureand purulent. Currently on Unasyn and clindamycin. X-ray without osteomyelitisafter debridement by plastic surgery. Oral clindamycin, oral Augmentin for 14-21days and follow up as an outpatient with weekly labs and follow clinical course as anoutpatient with me with plastics and the medical teaching service. Also, weconsulted the patient about the importance of stopping IV drugs and the risksassociated with it. Bad ie GIAN Cardenas/[id number]: 04/28/2017 17:47DT: 04/28/2017 19:15SSI File#: [id number] #: [id number]/Reviewed by04/29/17 1547 DEVORAH [facility] PATIENT NAME: NAMRATA WHEELER [address] MEDICAL REC #: [id number], [place] [address] DATE: 04/25/17DISCHARGE DATE:PROGRESS NOTE ATTENDING PHY: Andrei Andrea MD [facility] Normal [facility] PROG[facility] 04-26-2017 PROG.[facility] Patient Name: NAMRATA WHEELER [address] Date of : [address] [place] [address] Unit Number: [id number] Number: [id number] Note-[facility] Patient Status: ADM INAttending Doctor: Andrei Andrea MDService Date: 04/26/17 1229SubjectiveS: (2 ROS minimum)No acute events overnight. Per patient: reports that her pain is under control. Patientdenies having any withdrawal symptoms. Patient is tolerating PO intake. Otherwise,patient have no other complaints, questions, or concerns.Objective (ROS)Nursing VitalsVital Signs (Last)ResultDate TimePulse Qz3248/02 0745B/P117/6701/02 6706Zgoq37.301/02 9063Ckkyg5933/02 4622Jedw2235/02 0745General AppearanceCaucasian female who appears stated age in no acute distressPhysical ExamNeurological / Psychiatric Alert, Orientation X3, Affect NormalHEENT No TraumaRespiratory Normal Breathing Effort, Clear LungsCardiovascular Heart RRR, No M / R / GGastrointestinal Normal Bowel Sounds, Non TenderMusculoskeletal Abnormal Findings:, Multiple lower extremitie s ulcers that are open witherytema and mild tenderness upon palpation. Patient also has some yellow discolorat ionof the biggest wound of the right lower extremity.Skin Abnormal Findings:, Multiple ulcers on the right lower extremity that areerythematous, warm, and mild tenderness upon palpation. One lesion that is the largest insize has a yellow discolorationDiagnostic Data:Lab 24hr (CBC/BMP [facility]04/26/17 0619:[Embedded Image Not Available]Anion Gap 7, Est GFR ( Amer) Greater than 60, Est GFR (Non-Af Amer) 60, BUN/Creatinine Ratio 15, Glucose 100, Total Calcium 8.7, RBC 3.29 L, MCV 87.8, MCHC 33.2, RDW13.5, MPV 8.4 L, Immature Gran % (Auto) 0.5, Abs Immat Gran (auto) 0.00, Seg Neutrophils %56.5, Lymphocytes % 28.9, Monocytes % 10.2 H, Eosinophils % 2.9, Basophils % 1.0,Neutrophils # 4.40, Lymphocytes # 2.30, Monocytes # 0.80, Eosinophils # 0.20, Basophils #0.10, Nucleated RBCs 0.0, HIV (1/O/2) Ab Qual WYPHQZKWKFS68/02/18 0600:HIV (1/O/2) Ab Qual Txgmkvkmw41/01/182000:[Embedded Image Not Available]Anion Gap 10, Est GFR ( Amer) 57, Est GFR (Non-Af Amer) 47, BUN/Creatinine Ratio 14L, Glucose 111 H, Total Calcium 9.2, RBC 3.90, MCV 91.0, MCHC 31.5 L, RDW 13.8, MPV 8.5 L,Immature Gran % (Auto) 0.4, Abs Immat Gran (auto) 0.00, Seg Neutrophils % 74.7,Lymphocytes % 16.8 L, Monocytes % 5.4, Eosinophils % 1.7, Basophils % 1.0, Neutrophils #8.00, Lymphocytes # 1.80, Monocytes # 0.60, Eosinophils # 0.20, Basophils # 0.10,Nucleated RBCs 0.0, Platelet Estimate MOD INCREASED, Hypochromasia 1+04/25/171999:Lactate 1.33Assessment and PlanConclusion1. ACUTE RIGHT LOWER EXTREMITY OPEN WOUNDS- Patient reports that her pain in the right LE in controlled- We will discontinue Unasyn since patient endorses that she uses tap water prior toshooting her heroin and we will start the patient on Zosyn to cover pseudomonas- We will continue vancomycin- Pain: Toradol- Patient has multiple ulcers that is concern that patient may need debridement thereby wewill consult, consult plastic surgery for possible debridement.- ID, Dr. Cat is consulted and we appreciate her recommendations.- We will reassess clinically2. HEROIN ABUSE- Patient denies any withdrawal symptoms.- Patient states that she sometimes uses tap water and bottle water on her syringes priorto shooting thereby we will discontinue Unasyn and will start the patient on Zosyn- Patient was tested six months ago for HIV and stated that was negative. We will recheckHIV status that is pending3. Tobacco abuse- Nicoderm 21 mg qday4. DVT prophylaxis- Heparin SC 5000 units q8h5. Full code statusDisclaimerThis dictation was created using voice recognition software.Phonetic and/or minor grammatical errors may exist.eSign Date and TimeScoCyndy weathers MD Verified/Reviewed by 04/26/17 Andrei Conte MD [facility] Progress Note-MTS Normal [facility] UR DRUG ABUSEon 04-26-2017 UR AMPH Positive Normal Moaasz=2704 [facility] Comment on above: Order Comment: Campu s: M Performed By: #### L 200.08104 ####[facility] [id number] [place], [place] [address]Kx# [phone] UR JEAN PIERRE Negative Normal Rbvcjo=691 [facility] Comment on above: Order Comment: Campu s: M Performed By: #### L 200.94454 ####[facility] [id number] [place] [address]Bg# [phone] UR SINDY Negative Normal Xjmzel=242 [facility] Comment on above: Order Comment: Campu s: M Performed By: #### L 200.18288 ####[facility] SD[address]NSIZ[address] [place] [address]Oh# [phone] UR DARIN/THC Positive Normal Cutoff=50 [facility] Comment on above: Order Comment: Campu s: M Performed By: #### L 200.20177 ####[facility] [id number] [place] [address]Xz# [phone] UR SILVANA Positive Normal Ursxko=543 [facility] Comment on above: Order Comment: Campu s: M Performed By: #### L 200.51788 ####[facility] [id number] [place] [address]Py# [phone] UR OPIAT Negative Normal Nhmofw=014 [facility] Comment on above: Order Comment: Campu s: M Performed By: #### L 200.28994 ####[facility] [id number] [place] [address]Xy# [phone] UR PCP Negative Normal Cutoff=25 [facility] Comment on above: Order Comment: Campu s: M Performed By: #### L 200.70291 ####[facility] V[address]NPWET[address] [place], [place] [address]Sf# [phone] DRAB COMMENT Normal [facility] Comment on above: Order Comment: Campu s: M Result Comment: Urin e Drugs of Abuse results are qualitative, providing apreliminary analytical result. A positive result for anassay should be confirmed by another nonimmunological,reference method. A negative result indicates that theassay material is either not present, or present at levelsbelow the cutoff threshold for the analytical method range(AMR) validation. Performed By: #### L 200.54307 ####[address] [place], [place] [address]Iw# [phone] BMPon 04-25-2017 Anion gap 10 mmol/L Normal 5-16 [facility] Comment on above: Order Comment: Campu s: M Performed By: #### L 500.44371, L500.43591 ####[facility] [id number] [place] [address]Uy# [phone] BUN/Creatinine Ratio 14 mg/mg Low 15-24 [facility] Comment on above: Order Comment: Campu s: M Performed By: #### L 500.18219, L500.02956 ####[facility] [address]WDPNSKGB[address] [place], [place] [address]Sa# [phone] Calcium 9.2 mg/dL Normal 8.5-10.1 [facility] Comment on above: Order Comment: Campu s: M Performed By: #### L 500.08496, L500.95492 ####[facility] [id number] [place] [address]Tr# [phone] Chloride 107 mmol/L Normal 98-107 [facility] Comment on above: Order Comment: Campu s: M Performed By: #### L 500.10891, L500.03998 ####[facility] BFSLJTZCVJ75[address] [place], [place] [address]Bx# [phone] CO2 21 mmol/L Normal 21-32 [facility] Siren Comment on above: Order Comment: Campu s: M Performed By: #### L 500.11863, L500.03293 ####[facility] GJDNELRSVC[address] [place], [place] [address]Hu# [phone] Creatinine 1.260 mg/dL High 0.510-0.950 [facility] Comment on above: Order Comment: Campu s: M Result Comment: Chapis ents receiving either N-Acetylcysteine (NAC) orMetamizole prior to venipuncture, may have falsely depressedresults. Performed By: #### L 500.95844, L5.91298 ####[facility] [address]ME[address] [place], [place] [address]Ah# [phone] Glucose mass conc 111 mg/dL High 70-100 [facility] Comment on above: Order Comment: Campu s: M Result Comment: 70-1 00- Normal Fasting; 100-125 Impaired Fasting; greaterthan 126 on more than one result- Diabetes. ADA guidelines.Results may be falsely elevated after the administration ofSulfapyridine.Results may be falsely depressed after the administration ofSulfasalazine. Performed By: #### L 500.15445, L5.14910 ####[facility] [id number] [place], [place] [address]Yr# [phone] Potassium molar conc 4.8 mmol/L Normal 3.5-5.1 [facility] Comment on above: Order Comment: Campu s: M Performed By: #### L 500.51100, L500.85659 ####[facility] [id number] [place], [place] [address]Qt# [phone] Sodium 138 mmol/L Normal 136-145 [facility] Comment on above: Order Comment: Campu s: M Performed By: #### L 500.73082, L500.32494 ####[facility] [id number] [place], [place] [address]Gr# [phone] Urea nitrogen 18 mg/dL Normal 7-26 [facility] Comment on above: Order Comment: Campu s: M Performed By: #### L 500.47550, L500.73790 ####[facility] [id number] [place], [place] [address]Hk# [phone] CBC W/DIFFon 04-25-2017 BASO ABS 0.10 K/CU MM Normal 0-0.2 [facility] Comment on above: Order Comment: Campu s: M Performed By: #### L 200.40753 ####[facility] [id number] [place] [address]Ab# [phone] Basophils/100 WBC Auto (Bld) 1.0 % Normal 0-2 [facility] Comment on above: Order Comment: Campu s: M Performed By: #### L 200.03127 ####[place] [address]Ph# [phone] EOS ABS 0.20 K/CU MM Normal 0-0.5 [facility] Comment on above: Order Comment: Campu s: M Performed By: #### L 200.90249 ####[facility] [id number] [place] [address]Bd# [phone] Eosinophils/100 leukocytes 1.7 % Normal 0-5 [facility] Comment on above: Order Comment: Campu s: M Performed By: #### L 200.85678 ####[facility] [id number] [place] [address]Ac# [phone] Erythrocyte distribution width Auto Ratio (RBC) 13.8 % Normal 11-14.5 [facility] Comment on above: Order Comment: Campu s: M Performed By: #### L 200.56389 ####[facility] [id number] [place] [address]Pb# [phone] Erythrocytes (RBC) 3.90 M/CU MM Normal 3.90-5.[address] [facility] Comment on above: Order Comment: Campu s: M Performed By: #### L 200.11502 ####[facility] [id number] [place], [place] [address]Kd# [phone] Erythrocytes (RBC) 0.0 % Normal Less than 1 [facility] Comment on above: Order Comment: Campu s: M Performed By: #### L .96845 ####[facility] [id number] [place], [place] [address]Ef# [phone] Hematocrit (HCT) 35.5 % Normal 35.0-47.0 [facility] Comment on above: Order Comment: Campu s: M Performed By: #### L .06629 ####[facility] [id number] [place] [address]It# [phone] Hemoglobin mass conc (Bld) 11.2 g/dL Low 11.5-15.5 [facility] Comment on above: Order Comment: Campu s: M Performed By: #### L .42802 ####[facility] [id number] [place], [place] [address]Ph# [phone] HYPO 1+ Normal [facility] Comment on above: Order Comment: Campu s: M Performed By: #### L .34748 ####[facility] [id number] [place], [place] [address]Yq# [phone] IMMATR GRAN ABS 0.00 K/CU MM Normal Less than 2 [facility] Comment on above: Order Comment: Campu s: M Performed By: #### L .60326 ####[facility] [id number] [place] [address]Qy# [phone] IMMATURE GRAN % 0.4 % Normal Less than 2 [facility] Comment on above: Order Comment: Campu s: M Performed By: #### L .20173 ####[facility] [id number] [place], [place] [address]Xo# [phone] Lymphocytes 1.80 K/CU MM Normal 0.9-4.4 [facility] Comment on above: Order Comment: Campu s: M Performed By: #### L 200.97515 ####[facility] [id number] [place] [address]Mf# [phone] Lymphocytes/100 leukocytes 16.8 % Low 20-40 [facility] Comment on above: Order Comment: Campu s: M Performed By: #### L 200.01000 ####[facility] [id number] [place], [place] [address]Ph# [phone] MCHC mass conc (RBC) 31.5 g/dL Low 32.0-36.0 [facility] Comment on above: Order Comment: Campu s: M Performed By: #### L 200.85446 ####[facility] [id number] [place], [place] [address]Ph# [phone] MCV 91.0 fL Normal 80.0-99.0 [facility] Comment on above: Order Comment: Campu s: M Performed By: #### L 200.29175 ####[place] [address]Ph# [phone] MONO ABS 0.60 K/CU MM Normal 0.1-1.1 [facility] Comment on above: Order Comment: Campu s: M Performed By: #### L 200.88400 ####[facility] [id number] [place] [address]Pa# [phone] Monocytes/100 leukocytes 5.4 % Normal 2-10 [facility] Comment on above: Order Comment: Campu s: M Performed By: #### L 200.67380 ####[facility] [id number] [place] [address]Wh# [phone] Neutrophils 8.00 K/CU MM Normal 2.0-8.3 [facility] Comment on above: Order Comment: Campu s: M Performed By: #### L 200.13234 ####[facility] [id number] [place], [place] [address]Ph# [phone] Neutrophils/100 WBC Auto (Bld) 74.7 % Normal 45-75 [facility] Comment on above: Order Comment: Campu s: M Performed By: #### L 200.23513 ####[facility] [id number] [place], [place] [address]Ky# [phone] Platelet mean volume (PMV) 8.5 fL Low 9.4-12.4 [facility] Comment on above: Order Comment: Campu s: M Performed By: #### L 200.33295 ####[facility] [id number] [place] [address]Vt# [phone] Platelets 521 K/CU MM High 150-450 [facility] Comment on above: Order Comment: Campu s: M Result Comment: Conf irmed by slide estimate. Performed By: #### L 200.04745 ####[facility] [id number] [place] [address]Db# [phone] PLT EST MOD INCREASED Normal [facility] Comment on above: Order Comment: Campu s: M Performed By: #### L 200.48242 ####[facility] [id number] [place] [address]Yq# [phone] WBC (Leukocytes) 10.7 K/CU MM Normal 4.5-11.0 [facility] Comment on above: Order Comment: Campu s: M Result Comment: Conf irmed by slide estimate. Performed By: #### L 200.08346 ####[facility] [id number] [place] [address]Vk# [phone] GFR ESTon 04-25-2017 IF AMER 57 ML/MIN Normal [facility] Comment on above: Order Comment: Campu s: M Performed By: #### L 500.47356, L500.64026 ####[facility] [id number] [place], [place] [address]Qo# [phone] IF non-AFR AMER 47 ML/MIN Normal [facility] Comment on above: Order Comment: Campu s: M Performed By: #### L 500.14182, L500.90602 ####[facility] [id number] [place], [place] [address]Ou# [phone] LACTATE BLOODon 04-25-2017 LACTATE BLOOD 1.33 MMOL/L Normal 0.40-2.00 [facility] Comment on above: Order Comment: Dezsarah s: M Performed By: #### L 550.55039 ####[facility] [id number] [place], [place] [address]Eh# [phone] TIBIA/FIBULA 2 VWS RTon TIBIA/FIBULA 2 VWS RT TIBIA/FIBULA 2 VWS RTOrdering Physician: Lorna Lamb MD04/25/2017 7:18 PMRIGHT TIBIA/FIBULA TWO VIEWS:Clinical Statement: Infection/wounds, open wound of right midtibia/fibular region, worsening, drainageComparison: NoneFINDINGS: AP and lateral views of the right tibia/fibula wereobtained.No acute fracture or dislocation is identified. The mineralization iswithin normal limits. An ovoid well-circumscribed sclerotic density isnoted within the proximal metaphysis of the right tibia, likely a boneisland. There is mild soft tissue edema.There is a large soft tissue ulceration at the level of the mid todistal shaft of the tibia medially. The ulceration measures up to 5.3cm in length. There is a small soft tissue ulceration anterior to theproximal shaft of the tibia with surrounding soft tissue swelling andulceration measures approximately 10 mm in length. There are smallirregular soft tissue ulcerations at the level of the proximal shaftof the tibia medially.IMPRESSION:1. No acute osseous abnormality.2. Scattered lower extremity soft tissue ulcerations with the largestmeasuring 5.3 cm in length. There are areas of soft tissue edema.A stat report was faxed at the time of dictation. [employer]TATION ? DRAFT STATUS Dictated by Health Record Technician: Bebeto [place] and Signed by: Sourav Kim MD FACR---- Electronic Signature on File ----Signed By: Sourav Kim MD [email or web address]: 04/25/2017 7:36 PMSigned: 04/26/2017 7:34 AM Reported By: SOURAV KIM M.D. Signed By: SOURAV KIM M.D. [facility] Vital Signs Date Time Vital Sign Value Performing Clinician Abundio michele 12-17-2021 08:29-0400 Body height 157.5 cm FLORIAN KUNZ MD [facility] 12-17-2021 08:29-0400 Body temperature 98.06 [degF] FLORIAN KUNZ MD [facility] 12-17-2021 08:29-0400 Body weight 82 kg FLORIAN KUNZ MD [facility] 12-17-2021 08:29-0400 Diastolic blood pressure 85 mm[Hg] FLORIAN KUNZ MD [facility] 12-17-2021 08:29-0400 Heart rate 100 /min FLORIAN KUNZ MD [facility] 12-17-2021 08:29-0400 Respiratory rate 18 /min FLORIAN KUNZ MD [facility] 12-17-2021 08:29-0400 Systolic blood pressure 137 mm[Hg] FLORIAN KUNZ MD [facility] 12-02-2021 19:10-0400 Body temperature 97.88 [degF] DR WILBUR SOTELO MD [facility] 12-02-2021 19:10-0400 Diastolic blood pressure 78 mm[Hg] DR WILBUR SOTELO MD [facility] 08-10-2022 19:10-0400 Heart rate 90 /min DR WILBUR SOTELO MD [facility] 12-02-2021 19:10-0400 Respiratory rate 19 /min DR WILBUR SOTELO MD [facility] 12-02-2021 19:10-0400 Systolic blood pressure 112 mm[Hg] DR WILBUR SOTELO MD [facility] 11-01-2021 08:59-0400 Diastolic blood pressure 67 mm[Hg] Reji Cameron MD Work Phone: [facility] 11-01-2021 08:59-0400 Heart rate 76 /min Reji Cameron MD Work Phone: [facility] 11-01-2021 08:59-0400 Respiratory rate 25 /min Reji Cameron MD Work Phone: [facility] 11-01-2021 08:59-0400 SaO2% (BldA) [Mass fraction] 92 % Reji Cameron MD Work Phone: [facility] 11-01-2021 08:59-0400 Systolic blood pressure 145 mm[Hg] Reji Cameron MD Work Phone: [facility] 10-31-2021 21:55-0400 Body height 157.5 cm Reji Cameron MD Work Phone: [facility] 10-31-2021 21:54-0400 Body temperature 98.1 [degF] Reji Cameron MD Work Phone: [facility] Encounters Encounter Date Encounter Type Care Provider Facility Start: 04-11-2024 ambulatory [facility] Facility: [facility] Start: 12-17-2021 End: 12-17-2021 Emergency department patient visit FLORIAN KUNZ MD [facility] Start: 12-15-2021 End: 12-15-2021 Emergency department patient visit DR SOURAV YEE [facility] Start: 12-02-2021 End: 12-02-2021 Emergency department patient visit DR WILBUR SOTELO MD [facility] Start: 11-01-2021 End: 11-01-2021 Emergency department patient visit Reji Cameron MD Work Phone: [facility] Emergency Department Comment on above: Opioid use disorder Start: 04-26-2017 End: 04-30-2017 Evaluation and management of inpatient Andrei Andrea Facility:[facility] Procedures Date Procedure Procedure Detail Performing Clinician Start: 11-01-2021 Assay of lactate William Esquivel MD, PhD Work Phone: Start: 11-01-2021 End: 11-01-2021 Assay of lipase Wale Esquivel MD, PhD Work Phone: Start: 11-01-2021 CBC AND ELECTRONIC DIFF Jessica Chapman MD Work Phone: Start: 11-01-2021 Complete blood count with white cell differential, automated Jessica Chapman MD Work Phone: Start: 11-01-2021 MINT GREEN TOP TUBE Trini jun Chapman MD Work Phone: Appendectomy DR WILBUR SOTELO MD Cat scratch disease (disorder) DR WILBUR SOTELO MD Ligation of fallopian tube Marily SOTELO MD Plan of Treatment Date Care Activity Detail Author Start: 12-24-2021 Influenza vaccination INFLUENZA VACC INE (#1) [facility] Start: 2021 Colonoscopy COLORECTAL CAN CER SCREENING DISCUSSION [facility] Start: 2016 Fasting lipid profile LIPID SCREENIN G [facility] Start: 2016 Screening mammography MAMMOGRA M SCREENING DISCUSSION [facility] Start: 1997 Screening for malign ant neoplasm of cervix CERVICAL CANCER SCREENING DISCUSSION [facility] Start: 1995 Third diphtheria, te tanus and acellular pertussis (DTaP) vaccination TDAP (ADULT) [facility] Start: 1994 Tetanus vaccination TETANUS [facility] Start: 1991 HIV screening HIV SCREENING DISCUSSION [facility] Start: 1976 COVID-19 VACCINE (#1) COVID-19 VACCI NE (#1) [facility] Start: 1976 Hepatitis C antibody , confirmatory test HEPATITIS C VIRUS SCREENING [facility] GOLD TOP TUBE GOLD TOP TUBE La b Routine 11/01/2021 4:06 AM EDT [facility] LAVENDER TOP TUBE LAVENDER TOP T UBE Lab Routine 11/01/2021 4:06 AM EDT [facility] LT BLUE TOP TUBE LT BLUE TOP TUB E Lab Routine 11/01/2021 4:06 AM EDT [facility] RAINBOW DRAW RAINBOW DRAW Lab Routine 11/01/2021 4:06 AM EDT [facility] Work Phone: End: 11-01-2021 Standard ECG [facility] Comment on above: One Time for 1 Occur rences starting 11/01/2021 until 11/01/2021 Payers Date Payer Category Payer Unknown [id number] 2021 Unknown [employer] [id number] 2021-Present [address] [address] [place] [address] [id number] 2015 Unknown [id number] 1976 Unknown [id number] 1976 Unknown [id number] Social History Date Type Detail Facility Start: 10-31-2021 Tobacco smoking stat us OHIS Smokes tobacco daily [facility] History of tobacco use Cigarette Smoker O [facility] Start: 10-31-2021 Cigarettes smoked current (pack per day) - Reported 1 [facility] Start: 10-31-2021 Tobacco use and exposure Smoke less tobacco non-user [facility] Start: 10-31-2021 Alcohol intake Ex-drinker (finding) [facility] Start: 1975 Sex Assigned At Not on file O [facility] Start: 10-21-2021 End: 10-31-2021 Exposure to SARS-CoV-2 (event) Not sure [facility] Start: 05-26-2018 Tobacco smoking status Heavy t obacco smoker (finding) [facility] Sex Assigned At Sex [facility] Functional Status Date Assessment Result Facility 12-17-2021 Functional Status Up ad jaun jose [facility] 12-02-2021 Functional Status ID band on, Call device within reach, Bed in low position [facility] Mental Status Date Assessment Result Facility 12-17-2021 Mental Status Orientation Oriented x 4 [facility] 12-02-2021 Mental Status Oriented x 4 [facility] Clinical Notes 10-31-2021 to 12-17-2021 Miri Henderson RN - 11/01/2021 10:06 AM Jemma Henderson RN - 11/01/2021 10:06 AM Drake Cameron MD - 11/01/2021 4:54 AM Lara Keys MD - 11/01/2021 4:44 AM EDTAttachments Note Date & Type Note Facility 12-17-2021 Hospital Discharg e instructions Patient Education 12/17/2021 08:34:33 Causes of Sinusitis Causes of Sinusitis Mucus helps keep your sinuses clean. But mucus may build up in the sinuses because of colds, allergies, or blockages. These things get in the way of the natural drainage of mucus. This may lead to sinusitis. Sinusitis means sinus inflammation and infection. Acute sinusitis comes on suddenly. It often happens right after an upper respiratory infection, such as a cold. Viruses cause most acute sinus infections. Chronic sinusitis is ongoing swelling of the sinus lining. Doctors don't know what causes chronic sinusitis. Colds and other infections A cold or flu may cause your sinus and nasal linings to swell. Sinus openings can become blocked. This causes mucus to back up. This backed-up mucus becomes an ideal place for bacteria to grow. Thick, yellow, or discolored mucus is one sign of infection. Allergic reactions You may be sensitive to certain substances. This causes the release of histamine in the body. Histamine makes your sinus and nasal linings swell. Long-term swelling clogs your sinuses. It prevents the tiny hairs (cilia) in the nasal lining from sweeping away mucus. Allergy symptoms can continue over time. But they re less severe than with colds. Blockages A polyp is a sac of swollen tissue. It can be the result of an allergy or infection. It may block the opening where most of your sinuses drain (middle meatus). It may even grow large enough to block your nose. A deviated septum is when the thin wall inside your nose is pushed to one side. It is often the result of injury. This can block your middle meatus. People with chronic nasal problems or allergies are more likely to get acute sinusitis. Sinusitis is also more common if you have a weakened immune system, such as with HIV. You are also more likely to get sinusitis if you have cystic fibrosis or another condition that causes your body to make extra mucus. 2579-2741 [employer] [facility]. [address] [place] [address]. All rights reserved. This information is not intended as a substitute for professional medical care. Always follow your healthcare professional's instructions. Follow Up Care 12/17/2021 08:23:55 With:ENDER PALACIOS DO Address: [address] [facility] [place] [address]- [phone] When:2-4 days [facility] 12-17-2021 SARS-CoV-2 (COVID-19) RNA HERNANDEZ+probe Ql (Nph) Negative (12/17/21 8:48 AM) AO Auto Urine SS 12-17-2021 Note Discharge Instructions Thank you for allowing [facility] to assist you with your healthcare needs. The following is important discharge information regarding your hospital visit. Diagnosis from Today's Visit Sinus congestion Sinus Pain/Congestion Weakness or fatigue What to Do Next Instructions from Your Care Team Discharge Return to Work, School, or Sports (Return to Work, School, or Sports) - Ordered -- May return to: work, return to work if covid negative, 12/17/21 8:34:00 EDT Post Acute Orders No qualifying data available. You Need to Schedule the Following Appointments Follow Up with ENDER PALACIOS DO When Within 2-4 days Where: [address] [facility] [place] [address]- [phone] Allergies NKA Medications Please ask your primary doctor or pharmacist before taking any other medication not listed, including over the counter drugs, herbal medications, vitamins and or supplements as they may interact with your home medications. What How Much When Why Instructions Last Dose Unchanged acetaminophen-hydrocodone (Aurora 325- 5 mg oral tablet) 1 tab(s) by mouth Every 6 hours as needed for as needed for pain Otitis media Duration: 3 Days Unchanged acetaminophen-oxyCODONE (acetaminophen-oxyCODONE 325 mg-5 mg oral tablet) Unchanged amoxicillin (amoxicillin 875 mg oral tablet) Unchanged buprenorphine-naloxone (buprenorphine-naloxone 8 mg-2 mg sublingual film) 1 Each under the tongue Once a day Unchanged predniSONE (prednisone 10mg tab (TAPER)) Taper 30-20-10-5 mg x 3 days each dose by mouth Two (2) times a day Contact dermatitis caused by urushiol from [employer] poison eve Duration: 12 Days Unchanged predniSONE (predniSONE 20 mg oral tablet) 2 tab(s) by mouth Every day Otitis media Duration: 5 Days Please take this list to your next doctor s visit. Bring all medications you take, including over the counter medications, herbals and other supplements with you to your doctor s visit. Patients and families are reminded to discard old lists and to update any records with all medication providers or retail pharmacies. Education Materials Causes of Sinusitis Mucus helps keep your sinuses clean. But mucus may build up in the sinuses because of colds, allergies, or blockages. These things get in the way of the natural drainage of mucus. This may lead to sinusitis. Sinusitis means sinus inflammation and infection. Acute sinusitis comes on suddenly. It often happens right after an upper respiratory infection, such as a cold. Viruses cause most acute sinus infections. Chronic sinusitis is ongoing swelling of the sinus lining. Doctors don't know what causes chronic sinusitis. Colds and other infections A cold or flu may cause your sinus and nasal linings to swell. Sinus openings can become blocked. This causes mucus to back up. This backed-up mucus becomes an ideal place for bacteria to grow. Thick, yellow, or discolored mucus is one sign of infection. Allergic reactions You may be sensitive to certain substances. This causes the release of histamine in the body. Histamine makes your sinus and nasal linings swell. Long-term swelling clogs your sinuses. It prevents the tiny hairs (cilia) in the nasal lining from sweeping away mucus. Allergy symptoms can continue over time. But they re less severe than with colds. Blockages A polyp is a sac of swollen tissue. It can be the result of an allergy or infection. It may block the opening where most of your sinuses drain (middle meatus). It may even grow large enough to block your nose. A deviated septum is when the thin wall inside your nose is pushed to one side. It is often the result of injury. This can block your middle meatus. People with chronic nasal problems or allergies are more likely to get acute sinusitis. Sinusitis is also more common if you have a weakened immune system, such as with HIV. You are also more likely to get sinusitis if you have cystic fibrosis or another condition that causes your body to make extra mucus. 2189-1957 [employer] [facility]. [address] [place] [address]. All rights reserved. This information is not intended as a substitute for professional medical care. Always follow your healthcare professional's instructions. Additional Information VACCINATE! IT SAVES LIVES! Members of the community who have not yet received the COVID-19 vaccine and would like to receive it can visit one of [facility] vaccine clinics. There are many vaccine clinic locations within the [facility]. For locations and available times, please visit [email or web address]. It is important to note that some COVID mobile vaccine clinics are held outdoors and may be canceled in rainy or stormy conditions. To learn more about pediatric vaccinations (ages 5-11), we invite you to visit the [facility] webpage. [email or web address] To learn more about the COVID-19 vaccine, we invite you to visit the [facility] website for a list of frequently asked questions. [email or web address] [facility] Patient Portal Access Instructions: Stay connected with your healthcare team and access your personal medical information anytime with the [facility] Patient Portal. If you would like a full copy of your medical records please contact the [facility] Medical Records Department Tuesday through Tuesday between 8a.m. and 4:30p.m. Please follow the directions below to access the portal: 1.Access the email account you provided upon registration to the [facility].2.Look for an invitation email from [facility].3.Open the email and access the invitation link: Accept Invitation to [facility]4.Fill in the required kamara to create your account. Sign into [email or web address] with your username and password that you created in the above steps to stay up to date. You can then view a summary of results, a summary of your visits, and the ability to download your summaries to your computer or send the information securely to a physician. Remember that your healthcare information is confidential, so carefully consider who you will allow to register on the [facility] Patient Portal for access to your information. You can also access the [facility] Patient Portal on the [employer]. Simply click on Health Records under Health Data and then click on the [facility] logo. HOW TO SAFELY DISPOSE OF PRESCRIPTION MEDICATIONS Please use one of the following methods to safely dispose of your unused medications. 1.Use a drug disposal kit: the drug disposal pouch allows you to safely discard your old and unused drugs. Ask your nurse to give you one when you are discharged.2.Visit a local take-back location: Many local pharmacies and police departments have programs that collect old and unwanted prescription drugs. Call your local pharmacy or go to http://[employer]TwentyPeople/1H1Zb1i to find one close to you.3.Make use of household items: Use cat litter or old coffee grounds to dispose medications if other options are not available. Mix your drugs with these household products, seal them in an airtight container and throw it into the garbage. Call [facility]: [phone] to be sure your drugs can be disposed of in this way. Some medicines may require a different approach.4.Never flush your medications down the toilet. IF YOU HAVE BEEN PRESCRIBED AN OPIOIDS FOR PAIN If you have been prescribed an opioid (such as hydrocodone, oxycodone or morphine), it is critical to understand the possible side effects and risks of opioid pain medications. Even when taken as directed, opioids can have several side effects including: Tolerance, meaning you might need to take more of a medication for the same pain relief. Nausea, vomiting and/or constipation. Sleepiness, dizziness, dry mouth, confusion, depression or itching. Physical dependence, meaning you have withdrawal symptoms when a medication is stopped ? this can develop within a few days. KNOW YOUR RESPONSIBILITIES It is important to know exactly how much and how often to take the opioid pain medications you are prescribed. Never take opioids in higher amounts or more often than prescribed. Do not combine opioids with alcohol or other drugs that cause drowsiness, such as benzodiazepines, also known as benzos, including diazepam and alprazolam, muscle relaxants or sleep aids. Never sell or share prescription opioids. This is illegal. Store opioids in a secure place and out of reach of others (including children, family, friends and visitors). The last page(s) of this document has been signed and retained as a CHART COPY Signatures Patient Education Materials Causes of Sinusitis Medication Leaflets My discharge plan and instructions have been reviewed and explained to me and I,LEANNE WHEELER understand my current condition and have read and understand these discharge instructions. I have received a written copy of the plan/instructions. If I have questions, I am aware that I should contact my doctor. Patient/Patient Insurance Clerk Signature: Date/Time: Relationship to Patient: Witness Name/Signature: Date/Time: [facility] 12-02-2021 Hospital Discharg e instructions Patient Education 12/02/2021 19:33:59 Poison Eve Rash Poison Eve Rash You have a rash and itching. This is a delayed reaction to the oils of the poison eve plant. You likely came in contact with it during the 3 days before your symptoms began. Your skin will become red and itchy. Small blisters may appear. These can break and leak a clear yellow fluid. This fluid is not contagious. The reaction usually starts to go away after 1 to 2 weeks. But it may take 4 to 6 weeks to fully clear. Home care Follow these guidelines when caring for yourself at home: The plant oils still on your skin or clothes can be spread to other places on your body. They can also be passed on to other people and cause a similar reaction. That s why it s important to wash all of the plant oils off your skin and any clothes that may have been exposed. Wash all clothes that you were wearing. Use hot water with ordinary laundry detergent. Don't use ocjs-gxn-nprbgkk creams that have neomycin or bacitracin. These may make the rash worse. Stay away from anything that heats up your skin. This includes hot showers or baths, or direct sunlight. These can make itching worse. Put a cold compress on areas that are leaking (weeping), or on blistered areas. Do this for 30 minutes 3 times a day. To make a cold compress, dip a wash cloth in a mixture of 1 pint of cold water and 1 packet of astringent or oatmeal bath powder. Keep the solution in the refrigerator for future use. If large areas of skin are affected, take a lukewarm bath. Add colloidal oatmeal, or 1 cup of cornstarch or baking soda to the water. For a rash in a smaller area, use hydrocortisone cream for redness and irritation. But don t use this if another medicine was prescribed. For severe itching, put an ice pack on the area. To make an ice pack, put ice cubes in a plastic bag that seals at the top. Wrap the bag in a clean, thin towel or cloth. Never put ice or an ice pack directly on the skin. Ioda-hqj-tcwwjrl products that have calamine lotion may also be helpful. You can also use an oral antihistamine medicine with diphenhydramine for itching, unless another medicine was prescribed. This medicine may make you sleepy. So use lower doses during the daytime and higher doses at bedtime. Don t use medicine that has diphenhydramine if you have glaucoma. Also don t use it if you are a man who has trouble urinating because of an enlarged prostate. Antihistamines with loratidine cause less drowsiness. They are a good choice for daytime use. For severe cases, your provider may prescribe oral steroid medicines. Always take these exactly as prescribed. Follow-up care Follow up with your healthcare provider, or as directed. Call your provider if your rash gets worse or you are not starting to get better after 1 week of treatment. When to seek medical advice Call your healthcare provider right away if any of these occur: Spreading facial rash with swollen mouth or eyelids Rash that spreads to the groin and causes swelling of the penis, scrotum, or vaginal area Trouble urinating because of swelling in the genital area Also call your provider if you have signs of infection in the areas of broken blisters: Spreading redness Pus or fluid draining from the blisters Yellow-brown crusts form over the open blisters Fever of 1 degree, or higher, above your normal temperature, or as directed by your provider Call 911 Call 911 if you have severe swelling on your face, eyelids, mouth, throat, or tongue. 4630-9346 [facility]. [address] [place] [address], [place] [address]. All rights reserved. This information is not intended as a substitute for professional medical care. Always follow your healthcare professional's instructions. Follow Up Care 12/02/2021 19:09:19 With:SHIVANI ZIMMER MD Address: [address] [place] [address] [place] [address]- When:2-4 days [facility] 12-02-2021 Note Discharge Instructions Thank you for allowing [facility] to assist you with your healthcare needs. The following is important discharge information regarding your hospital visit. Diagnosis from Today's Visit Contact dermatitis caused by urushiol from Eastern poison eve Rash What to Do Next Instructions from Your Care Team No qualifying data available. Post Acute Orders No qualifying data available. You Need to Schedule the Following Appointments Follow Up with SHIVANI ZIMMER MD When Within 2-4 days Where: [address] [facility] [place] [address]- Allergies NKA Medications Please ask your primary doctor or pharmacist before taking any other medication not listed, including over the counter drugs, herbal medications, vitamins and or supplements as they may interact with your home medications. What How Much When Why Instructions Last Dose Changed predniSONE (prednisone 10mg tab (TAPER)) Taper 30-20-10-5 mg x 3 days each dose by mouth Two (2) times a day Contact dermatitis caused by urushiol from [place] poison eve Duration: 12 Days Printed Prescription Changed predniSONE (predniSONE 20 mg oral tablet) 2 tab(s) by mouth Every day Otitis media Duration: 5 Days Unchanged acetaminophen-hydrocodone (Aurora 325- 5 mg oral tablet) 1 tab(s) by mouth Every 6 hours as needed for as needed for pain Otitis media Duration: 3 Days Unchanged acetaminophen-oxyCODONE (acetaminophen-oxyCODONE 325 mg-5 mg oral tablet) Unchanged amoxicillin (amoxicillin 875 mg oral tablet) Please take this list to your next doctor s visit. Bring all medications you take, including over the counter medications, herbals and other supplements with you to your doctor s visit. Patients and families are reminded to discard old lists and to update any records with all medication providers or retail pharmacies. Education Materials Poison Eve Rash You have a rash and itching. This is a delayed reaction to the oils of the poison eve plant. You likely came in contact with it during the 3 days before your symptoms began. Your skin will become red and itchy. Small blisters may appear. These can break and leak a clear yellow fluid. This fluid is not contagious. The reaction usually starts to go away after 1 to 2 weeks. But it may take 4 to 6 weeks to fully clear. Home care Follow these guidelines when caring for yourself at home: The plant oils still on your skin or clothes can be spread to other places on your body. They can also be passed on to other people and cause a similar reaction. That s why it s important to wash all of the plant oils off your skin and any clothes that may have been exposed. Wash all clothes that you were wearing. Use hot water with ordinary laundry detergent. Don't use pibf-raf-nxouczw creams that have neomycin or bacitracin. These may make the rash worse. Stay away from anything that heats up your skin. This includes hot showers or baths, or direct sunlight. These can make itching worse. Put a cold compress on areas that are leaking (weeping), or on blistered areas. Do this for 30 minutes 3 times a day. To make a cold compress, dip a wash cloth in a mixture of 1 pint of cold water and 1 packet of astringent or oatmeal bath powder. Keep the solution in the refrigerator for future use. If large areas of skin are affected, take a lukewarm bath. Add colloidal oatmeal, or 1 cup of cornstarch or baking soda to the water. For a rash in a smaller area, use hydrocortisone cream for redness and irritation. But don t use this if another medicine was prescribed. For severe itching, put an ice pack on the area. To make an ice pack, put ice cubes in a plastic bag that seals at the top. Wrap the bag in a clean, thin towel or cloth. Never put ice or an ice pack directly on the skin. Oaua-voh-tzdqliy products that have calamine lotion may also be helpful. You can also use an oral antihistamine medicine with diphenhydramine for itching, unless another medicine was prescribed. This medicine may make you sleepy. So use lower doses during the daytime and higher doses at bedtime. Don t use medicine that has diphenhydramine if you have glaucoma. Also don t use it if you are a man who has trouble urinating because of an enlarged prostate. Antihistamines with loratidine cause less drowsiness. They are a good choice for daytime use. For severe cases, your provider may prescribe oral steroid medicines. Always take these exactly as prescribed. Follow-up care Follow up with your healthcare provider, or as directed. Call your provider if your rash gets worse or you are not starting to get better after 1 week of treatment. When to seek medical advice Call your healthcare provider right away if any of these occur: Spreading facial rash with swollen mouth or eyelids Rash that spreads to the groin and causes swelling of the penis, scrotum, or vaginal area Trouble urinating because of swelling in the genital area Also call your provider if you have signs of infection in the areas of broken blisters: Spreading redness Pus or fluid draining from the blisters Yellow-brown crusts form over the open blisters Fever of 1 degree, or higher, above your normal temperature, or as directed by your provider Call 911 Call 911 if you have severe swelling on your face, eyelids, mouth, throat, or tongue. 3318-3944 [facility]. [address] [place] [address]. All rights reserved. This information is not intended as a substitute for professional medical care. Always follow your healthcare professional's instructions. Additional Information VACCINATE! IT SAVES LIVES! Members of the community who have not yet received the COVID-19 vaccine and would like to receive it can visit one of [facility] vaccine clinics. There are many vaccine clinic locations within the [facility]. For locations and available times, please visit [email or web address]. It is important to note that some COVID mobile vaccine clinics are held outdoors and may be canceled in rainy or stormy conditions. To learn more about pediatric vaccinations (ages 5-11), we invite you to visit the [facility] webpage. [email or web address]/p [email or web address]-Freq [email or web address]-Prybtlqnl.html To learn more about the COVID-19 vaccine, we invite you to visit the [employer] website for a list of frequently asked questions. [email or web address] [email or web address] [facility] Patient Portal Access Instructions: Stay connected with your healthcare team and access your personal medical information anytime with the [employer] Patient Portal. If you would like a full copy of your medical records please contact the [facility] Medical Records Department Tuesday through Tuesday between 8a.m. and 4:30p.m. Please follow the directions below to access the portal: 1.Access the email account you provided upon registration to the [facility].2.Look for an invitation email from [facility].3.Open the email and access the invitation link: Accept Invitation to [facility]4.Fill in the required kamara to create your account. Sign into [email or web address] with your username and password that you created in the above steps to stay up to date. You can then view a summary of results, a summary of your visits, and the ability to download your summaries to your computer or send the information securely to a physician. Remember that your healthcare information is confidential, so carefully consider who you will allow to register on the [facility] Patient Portal for access to your information. You can also access the [facility] Patient Portal on the [employer]. Simply click on Health Records under Health Data and then click on the [facility] logo. HOW TO SAFELY DISPOSE OF PRESCRIPTION MEDICATIONS Please use one of the following methods to safely dispose of your unused medications. 1.Use a drug disposal kit: the drug disposal pouch allows you to safely discard your old and unused drugs. Ask your nurse to give you one when you are discharged.2.Visit a local take-back location: Many local pharmacies and police departments have programs that collect old and unwanted prescription drugs. Call your local pharmacy or go to http://bit.TwentyPeople/9Q3Kz2h to find one close to you.3.Make use of household items: Use cat litter or old coffee grounds to dispose medications if other options are not available. Mix your drugs with these household products, seal them in an airtight container and throw it into the garbage. Call [facility]: [phone] to be sure your drugs can be disposed of in this way. Some medicines may require a different approach.4.Never flush your medications down the toilet. IF YOU HAVE BEEN PRESCRIBED AN OPIOIDS FOR PAIN If you have been prescribed an opioid (such as hydrocodone, oxycodone or morphine), it is critical to understand the possible side effects and risks of opioid pain medications. Even when taken as directed, opioids can have several side effects including: Tolerance, meaning you might need to take more of a medication for the same pain relief. Nausea, vomiting and/or constipation. Sleepiness, dizziness, dry mouth, confusion, depression or itching. Physical dependence, meaning you have withdrawal symptoms when a medication is stopped ? this can develop within a few days. KNOW YOUR RESPONSIBILITIES It is important to know exactly how much and how often to take the opioid pain medications you are prescribed. Never take opioids in higher amounts or more often than prescribed. Do not combine opioids with alcohol or other drugs that cause drowsiness, such as benzodiazepines, also known as benzos, including diazepam and alprazolam, muscle relaxants or sleep aids. Never sell or share prescription opioids. This is illegal. Store opioids in a secure place and out of reach of others (including children, family, friends and visitors). The last page(s) of this document has been signed and retained as a CHART COPY Signatures Patient Education Materials Poison Eve Rash Medication Leaflets My discharge plan and instructions have been reviewed and explained to me and ILIAM CANDACE J understand my current condition and have read and understand these discharge instructions. I have received a written copy of the plan/instructions. If I have questions, I am aware that I should contact my doctor. Patient/Patient Insurance Clerk Signature: Date/Time: Relationship to Patient: Witness Name/Signature: Date/Time: [facility] 11-01-2021 Emergency department Note [facility] notified of DC. They instructed patient may wait at entrance for cab [facility] 11-01-2021 Emergency department Note [facility] notified of DC. They instructed patient may wait at entrance for cab ED Attending Chief Complaint Patient presents with Vomiting No past medical history on file. Leanne Wheeler is a 46 y.o. female. Sent from [facility] with vomiting. Patient with h/o fentanyl abuse there for detox. Given zofran and phenergan without benefit. No other complaints. BP 142/67 Pulse 84 Temp 98.1 F (36.7 C) (Oral) Resp (!) 26 Ht 1.575 m (5' 2) SpO2 93% Smoking Status Current Every Day Smoker MM dry, CTA bilat, RRR, abd soft NTND, ext nml. Neuro intact Differential diagnosis: dehydration, electrolytes, detox Impression: Vomiting, dehydration Plan: Droperidol, CBC, chemistry, LFTs, lipase, UA, IVF This patient's history, physical exam and any procedures were performed by the resident. On 11/01/2021 I saw and examined the patient. I discussed the history and examination with the resident and agree with the plan of care. In addition, I have fully participated in the care of this patient. I have reviewed all pertinent clinical information, including history, physical exam and medical decision making with the resident. I was present for the davison or critical portions of the documented procedures for the patient. . Reji Cameron MD 11/01/21 0456 ED RESIDENT STAFFING NOTE Please see [facility] resident notes from this encounter for additional information RELEVANT HPI: Leanne Wheeler is a 46 y.o. female with no chronic medical conditions. she presents with chief complaint of Vomiting Patient brought in from detox facility for reported intractable nausea and vomiting for the past 3 days. Patient in the facility for fentanyl abuse over the past 4-5 days. Per report symptoms did not improve with IM phenergan at facility. No past medical history on file. Past Surgical History: Procedure Laterality Date APPENDECTOMY ROS: Review of systems including constitutional, skin, HEENT, eyes, CV, respiratory, GI, , MSK, endocrine, neurologic, psychiatric, heme reviewed and negative except as noted above. PERTINENT EXAM: BP 142/67 Pulse 84 Temp 98.1 F (36.7 C) (Oral) Resp (!) 26 Ht 1.575 m (5' 2) SpO2 93% Smoking Status Current Every Day Smoker Constitutional: Non-toxic appearance. Not in acute distress. HEENT:Normocephalic and atraumatic. PERRLA. EOMI. B/L external ears unremarkable. Oropharynx clear with DMM. Neck: Normal range of motion. Neck supple. No JVD. Cardiovascular: Normal rate, regular rhythm, normal heart sounds and intact distal pulses. No Murmurs/Rubs/Gallops. Pulmonary/Chest: Bilaterally Clear to Auscultation. Normal Respiratory Effort. No stridor. No respiratory distress. No wheezes. No rales. Abdominal: Soft/Depressible. Bowel sounds are normal. No distension. There is no tenderness. There is no rebound and no guarding. Musculoskeletal: Normal range of motion. No lower extremity edema. No Cyanosis. Radial and DP pulses Normal and symmetric. Neurological: Alert and oriented to person, place, and situation. CNII-XII grossly intact. Moving all 4 extremities equally. Skin: Skin is warm and dry. Capillary refill < 2 seconds. No rash noted. Nursing note and vitals reviewed. MEDICAL DECISION MAKING 46 year old F brought from [facility] for intractable nausea and vomiting despite IM phenergan. On evaluation patient is hemodynamically stable, afebrile, aaox3, not in acute distress. Benign physical examination, except for signs of mild dehydration. Will plan to obtain basic labwork to evaluate for electrolyte abnormalities, arrhythmia, acs, pancreatitis. Will treat symptomatically with IVF and droperidol. ED Course/MDM: Lactate slightly elevated, suspect likely from dehydration given no infectious like symptoms. Significant improvement with treatment given here. Will plan for PO challenge. If patient tolerates well, will plan to discharge back to facility for continued care Impression: Nausea and vomiting Disposition/follow-up: Pending PO challenge likely discharge Prior medical records were reviewed. All pertinent labs and imaging results were reviewed and interpreted by me. The patient was updated regarding findings, and was re-assessed during ED stay. This patient was discussed with the attending physician who was in the immediate care area during the evaluation and decision making process. Renzo Keys MD Resident 11/01/21 0645 Images from the original note were not included. EMERGENCY DEPARTMENT ENCOUNTER CHIEF COMPLAINT Chief Complaint Patient presents with Vomiting HPI Leanne Wheeler is a 46 y.o. female with history of fentanyl abuse (admitted to [facility] on 10/27/21) presents with vomiting/ diarrhea x3d. Patient reports that she last used fentanyl on 10/26, was then admitted to [facility] for detox. She denies any other substance use. She reports since being admitted, she was started on treatment for opioid withdrawal, including clonidine, trazodone, tylenol/ ibuprofen, and suboxone. For last 3-4 days, she has had ongoing nausea/ vomiting and diarrhea (2x BMs per day, watery). Patient was given phenergan IM without improvement. She has also been receiving an ODT anti-emetic at her facility, though she cannot remember the name of the agent. She denies abdominal pain, melena/ hematochezia, sick contacts. Since the onset of her symptoms, she has not been eating/ drinking well. She reports only drinking a small amount of water today. REVIEW OF SYSTEMS Constitutional: No fever, No chills, +fatigue. HENT: No sore throat, No rhinorrhea, No congestion. Eyes: No vision changes, No conjunctival injection. Respiratory: No shortness of breath, No cough. Cardiovascular: No chest pain, No leg swelling. Gastrointestinal: No abdominal distension, No abdominal pain, +nausea/ vomiting/diarrhea, No blood in stool. Genitourinary: No dysuria, No hematuria, No frequency, No urgency, No flank pain. Skin: No rashes, No wounds. MSK: No joint pain, No swelling, No neck pain, No neck stiffness. Neurologic: No headache, No numbness, No weakness. PAST MEDICAL HISTORY No past medical history on file. SURGICAL HISTORY Past Surgical History: Procedure Laterality Date APPENDECTOMY CURRENT MEDICATIONS No current outpatient medications on file. ALLERGIES No Known Allergies FAMILY HISTORY History reviewed. No pertinent family history. SOCIAL HISTORY Social History Socioeconomic History Marital status: Not on file Spouse name: Not on file Number of children: Not on file Years of education: Not on file Highest education level: Not on file Occupational History Not on file Tobacco Use Smoking status: Current Every Day Smoker Packs/day: 1.00 Types: Cigarettes Smokeless tobacco: Never Used Substance and Sexual Activity Alcohol use: Not Currently Drug use: Yes Types: Fentanyl Sexual activity: Not on file Other Topics Concern Not on file Social History Narrative Not on file Social Determinants of Health Financial Resource Strain: Not on file Food Insecurity: Not on file Transportation Needs: Not on file Physical Activity: Not on file Stress: Not on file Social Connections: Not on file Intimate Partner Violence: Not on file Housing Stability: Not on file PHYSICAL EXAM Vital Signs:BP 129/75 Pulse 93 Temp 98.1 F (36.7 C) (Oral) Resp 16 Ht 1.575 m (5' 2) SpO2 95% Smoking Status Current Every Day Smoker Constitutional: Appears fatigued, uncomfortable HENT: Normocephalic and atraumatic. Oropharynx is clear and moist. Neck: Normal range of motion. Neck supple. Cardiovascular: Regular rate and regular rhythm. No Lower extremity edema. Pulmonary: Effort normal, non-labored. Clear to ausculation bilaterally. Abdominal: Abdomen soft, non-distended. There is no tenderness. No rebound or guarding. MSK: Good range of motion in all major joints. No major deformities noted. Skin: Skin is warm and dry. No rashes or wounds noted. Neuro: Alert and Oriented. Psychiatric: Normal mood and affect. Cooperative Data: EK11/01/2021 ED COURSE & MEDICAL DECISION MAKING Leanne Wheeler is a 46 y.o. female with history of fentanyl abuse (admitted to [facility] on 10/27/21) presents with vomiting x3d. Impression: Nausea/ Vomiting/ diarrhea: Differentials include but are not limited to opioid withdrawal, acute gastroenteritis, cyclic vomiting, cannabis hyperemesis; less likely peritonitis, given benign abdominal exam. Plan: - EKG to assess QTc - Chem, CBC, Mg - Lipase - Lactate - mIVFs (LR 100cc/hr) - Treatment of opioid withdrawal: COWS-based assessment to determine suboxone dosing - Droperidol x1 for nausea/ vomiting - Clonidine 0.1mg q6h - Bentyl q6h PRN - Hydroxyzine 25mg q8h PRN (anxiety) - May require admission to medicine, depending on lab results/ symptomatic improvement, with MAT team to follow Disposition: Pending reassessment of labs and symptoms; may require admission Wale Esquivel MD, PhD Internal Medicine, PGY-3 [facility] ED Course as of 11/01/21645 Sun Nov 01, 2021 0538 Patient resting comfortably, reports subjective improvement in nausea since receiving droperidol. - Received 1L LR bolus, 1L via maintenance rate - Will reassess symptoms once patient is awake and perform PO challenge; if she is able to tolerate PO, will discharge back to [facility] Wale Esquivel MD, PhD Resident 11/01/21645 Pt arrives via private ambulance from [facility]. Pt admitted there on 10/27/2021 for fentanyl abuse. Pt states she has been vomiting x 3 days. Given phenergan IM without improvement. Pt lethargic but awakens easily to voice. Able to answer all questions in triage. [facility] Discharg e instructions Libby Herr MD - 11/01/2021 9:21 AM EDT You came to the ED for evaluation of nausea and vomiting. Your labs were reassuring. You were given fluids and medication, which improved your symptoms. You were able to tolerate food and drink during your time in the ED. Please return to the ED if you pass out, vomit blood, have new or worsening belly pain, symptoms of dehydration. The following attachments cannot be sent through Care Everywhere.Nausea and Vomiting (Turkish)documented in this encounter [facility] 11-01-2021 Physician Emergency department Note ED Attending Chief Complaint Patient presents with Vomiting No past medical history on file. Leanne Wheeler is a 46 y.o. female. Sent from [facility] with vomiting. Patient with h/o fentanyl abuse there for detox. Given zofran and phenergan without benefit. No other complaints. BP 142/67 Pulse 84 Temp 98.1 F (36.7 C) (Oral) Resp (!) 26 Ht 1.575 m (5' 2) SpO2 93% Smoking Status Current Every Day Smoker MM dry, CTA bilat, RRR, abd soft NTND, ext nml. Neuro intact Differential diagnosis: dehydration, electrolytes, detox Impression: Vomiting, dehydration Plan: Droperidol, CBC, chemistry, LFTs, lipase, UA, IVF This patient's history, physical exam and any procedures were performed by the resident. On 11/01/2021 I saw and examined the patient. I discussed the history and examination with the resident and agree with the plan of care. In addition, I have fully participated in the care of this patient. I have reviewed all pertinent clinical information, including history, physical exam and medical decision making with the resident. I was present for the davison or critical portions of the documented procedures for the patient. . Reji Cameron MD 11/01/21 0456 [facility] Work Phone: 11-01-2021 Physician Emergency department Note ED RESIDENT STAFFING NOTE Please see jerrod resident notes from this encounter for additional information RELEVANT HPI: Leanne Wheeler is a 46 y.o. female with no chronic medical conditions. she presents with chief complaint of Vomiting Patient brought in from detox facility for reported intractable nausea and vomiting for the past 3 days. Patient in the facility for fentanyl abuse over the past 4-5 days. Per report symptoms did not improve with IM phenergan at facility. No past medical history on file. Past Surgical History: Procedure Laterality Date APPENDECTOMY ROS: Review of systems including constitutional, skin, HEENT, eyes, CV, respiratory, GI, , MSK, endocrine, neurologic, psychiatric, heme reviewed and negative except as noted above. PERTINENT EXAM: BP 142/67 Pulse 84 Temp 98.1 F (36.7 C) (Oral) Resp (!) 26 Ht 1.575 m (5' 2) SpO2 93% Smoking Status Current Every Day Smoker Constitutional: Non-toxic appearance. Not in acute distress. HEENT:Normocephalic and atraumatic. PERRLA. EOMI. B/L external ears unremarkable. Oropharynx clear with DMM. Neck: Normal range of motion. Neck supple. No JVD. Cardiovascular: Normal rate, regular rhythm, normal heart sounds and intact distal pulses. No Murmurs/Rubs/Gallops. Pulmonary/Chest: Bilaterally Clear to Auscultation. Normal Respiratory Effort. No stridor. No respiratory distress. No wheezes. No rales. Abdominal: Soft/Depressible. Bowel sounds are normal. No distension. There is no tenderness. There is no rebound and no guarding. Musculoskeletal: Normal range of motion. No lower extremity edema. No Cyanosis. Radial and DP pulses Normal and symmetric. Neurological: Alert and oriented to person, place, and situation. CNII-XII grossly intact. Moving all 4 extremities equally. Skin: Skin is warm and dry. Capillary refill < 2 seconds. No rash noted. Nursing note and vitals reviewed. MEDICAL DECISION MAKING 46 year old F brought from [facility] for intractable nausea and vomiting despite IM phenergan. On evaluation patient is hemodynamically stable, afebrile, aaox3, not in acute distress. Benign physical examination, except for signs of mild dehydration. Will plan to obtain basic labwork to evaluate for electrolyte abnormalities, arrhythmia, acs, pancreatitis. Will treat symptomatically with IVF and droperidol. ED Course/MDM: Lactate slightly elevated, suspect likely from dehydration given no infectious like symptoms. Significant improvement with treatment given here. Will plan for PO challenge. If patient tolerates well, will plan to discharge back to facility for continued care Impression: Nausea and vomiting Disposition/follow-up: Pending PO challenge likely discharge Prior medical records were reviewed. All pertinent labs and imaging results were reviewed and interpreted by me. The patient was updated regarding findings, and was re-assessed during ED stay. This patient was discussed with the attending physician who was in the immediate care area during the evaluation and decision making process. Renzo Keys MD Resident 11/01/21 5681 [facility] Work Phone: 11-01-2021 Note Acute Coronary Syndr ome (ACS): Initial Evaluation and Management: [email or web address] [facility] 11-01-2021 Physician Emergency department Note Images from the original note were not included. EMERGENCY DEPARTMENT ENCOUNTER CHIEF COMPLAINT Chief Complaint Patient presents with Vomiting HPI Leanne Wheeler is a 46 y.o. female with history of fentanyl abuse (admitted to [facility] on 10/27/21) presents with vomiting/ diarrhea x3d. Patient reports that she last used fentanyl on 10/26, was then admitted to [facility] for detox. She denies any other substance use. She reports since being admitted, she was started on treatment for opioid withdrawal, including clonidine, trazodone, tylenol/ ibuprofen, and suboxone. For last 3-4 days, she has had ongoing nausea/ vomiting and diarrhea (2x BMs per day, watery). Patient was given phenergan IM without improvement. She has also been receiving an ODT anti-emetic at her facility, though she cannot remember the name of the agent. She denies abdominal pain, melena/ hematochezia, sick contacts. Since the onset of her symptoms, she has not been eating/ drinking well. She reports only drinking a small amount of water today. REVIEW OF SYSTEMS Constitutional: No fever, No chills, +fatigue. HENT: No sore throat, No rhinorrhea, No congestion. Eyes: No vision changes, No conjunctival injection. Respiratory: No shortness of breath, No cough. Cardiovascular: No chest pain, No leg swelling. Gastrointestinal: No abdominal distension, No abdominal pain, +nausea/ vomiting/diarrhea, No blood in stool. Genitourinary: No dysuria, No hematuria, No frequency, No urgency, No flank pain. Skin: No rashes, No wounds. MSK: No joint pain, No swelling, No neck pain, No neck stiffness. Neurologic: No headache, No numbness, No weakness. PAST MEDICAL HISTORY No past medical history on file. SURGICAL HISTORY Past Surgical History: Procedure Laterality Date APPENDECTOMY CURRENT MEDICATIONS No current outpatient medications on file. ALLERGIES No Known Allergies FAMILY HISTORY History reviewed. No pertinent family history. SOCIAL HISTORY Social History Socioeconomic History Marital status: Not on file Spouse name: Not on file Number of children: Not on file Years of education: Not on file Highest education level: Not on file Occupational History Not on file Tobacco Use Smoking status: Current Every Day Smoker Packs/day: 1.00 Types: Cigarettes Smokeless tobacco: Never Used Substance and Sexual Activity Alcohol use: Not Currently Drug use: Yes Types: Fentanyl Sexual activity: Not on file Other Topics Concern Not on file Social History Narrative Not on file Social Determinants of Health Financial Resource Strain: Not on file Food Insecurity: Not on file Transportation Needs: Not on file Physical Activity: Not on file Stress: Not on file Social Connections: Not on file Intimate Partner Violence: Not on file Housing Stability: Not on file PHYSICAL EXAM Vital Signs:BP 129/75 Pulse 93 Temp 98.1 F (36.7 C) (Oral) Resp 16 Ht 1.575 m (5' 2) SpO2 95% Smoking Status Current Every Day Smoker Constitutional: Appears fatigued, uncomfortable HENT: Normocephalic and atraumatic. Oropharynx is clear and moist. Neck: Normal range of motion. Neck supple. Cardiovascular: Regular rate and regular rhythm. No Lower extremity edema. Pulmonary: Effort normal, non-labored. Clear to ausculation bilaterally. Abdominal: Abdomen soft, non-distended. There is no tenderness. No rebound or guarding. MSK: Good range of motion in all major joints. No major deformities noted. Skin: Skin is warm and dry. No rashes or wounds noted. Neuro: Alert and Oriented. Psychiatric: Normal mood and affect. Cooperative Data: EK11/01/2021 ED COURSE & MEDICAL DECISION MAKING Leanne Wheeler is a 46 y.o. female with history of fentanyl abuse (admitted to [facility] on 10/27/21) presents with vomiting x3d. Impression: Nausea/ Vomiting/ diarrhea: Differentials include but are not limited to opioid withdrawal, acute gastroenteritis, cyclic vomiting, cannabis hyperemesis; less likely peritonitis, given benign abdominal exam. Plan: - EKG to assess QTc - Chem, CBC, Mg - Lipase - Lactate - mIVFs (LR 100cc/hr) - Treatment of opioid withdrawal: COWS-based assessment to determine suboxone dosing - Droperidol x1 for nausea/ vomiting - Clonidine 0.1mg q6h - Bentyl q6h PRN - Hydroxyzine 25mg q8h PRN (anxiety) - May require admission to medicine, depending on lab results/ symptomatic improvement, with MAT team to follow Disposition: Pending reassessment of labs and symptoms; may require admission Wale Esquivel MD, PhD Internal Medicine, PGY-3 [facility] ED Course as of 11/01/21 0646 Sun Nov 01, 2021 0538 Patient resting comfortably, reports subjective improvement in nausea since receiving droperidol. - Received 1L LR bolus, 1L via maintenance rate - Will reassess symptoms once patient is awake and perform PO challenge; if she is able to tolerate PO, will discharge back to [facility] Wale Esquivel MD, PhD Resident 11/01/2146 [facility] 10-31-2021 Emergency department Note Pt arrives via private ambulance from [facility]. Pt admitted there on 10/27/2021 for fentanyl abuse. Pt states she has been vomiting x 3 days. Given phenergan IM without improvement. Pt lethargic but awakens easily to voice. Able to answer all questions in triage. [facility] Evaluation + Plan note No data available for this section [facility] Evaluation note Diagnosis Nausea and vomiting, unspecified vomiting type- Primary Opioid use disorder documented in this encounter [facility] Summary Purpose Family History No Family History Records FoundNo Family History Records FoundNo Family History Records FoundNo Family History Records Found Advance Directives No Advanced Directives Records FoundNo Advanced Directives Records FoundNo Advanced Directives Records FoundNo Advanced Directives Records Found Reason for Referral Specialty Diagnoses / Procedures Referred By Contac t Referred To Contact Procedures ECG Reji Cameron MD [address] [place] [address] Referral ID Status Reason Start Date Expiration Date V isits Requested Visits Authorized [id number] Pending Review 11/01/2021 11/26/2022 1 1 Referral ID Status Reason Start Date Expiration Date V isits Requested Visits Authorized [id number] Pending Review 11/01/2021 11/26/2022 1 1 Additional Source Comments INFORMATION SOURCE (unrecogn ized section and content) DATE CREATED AUTHOR 10/17/2017 [facility] DATE CREATED AUTHOR AUTHOR'S ORGANIZ ATION 12/18/[address] [facility] DATE CREATED AUTHOR AUTHOR'S ORGANIZ ATION 12/30/2021 [facility] DATE CREATED AUTHOR AUTHOR'S ORGANIZ ATION 04/19/2024 [facility] Reason for Visit (unrecogniz ed section and content) Reason Comments Vomiting Scheduled Active and Recently Administ ered Medications (unrecognized section and content) Medication Order 10/30/2021 10/31/2021 11/01/2021 droperidol (INAPSINE) injection 1.25 mg (COMPLETED) 1.25 mg, Intravenous, ONCE, 1 dose, On 11/01/21 at 0415, IM: Administer undiluted IV injection: Dilute with 10 mL of normal saline and administer slow IV push over 2 to 5 minutes. Extravasation Risk 0412 (Given - Provid er: Kasey Gonzalez RN) lactated ringers IV solution 1,000 mL (COMPLETED) 1,000 mL, Intravenous, ONCE, 1 dose, On 11/01/21 at 0515, Fluid Bolus 0542 ($$New Bag$$ - Provider: Kasey Gonzalez RN)1007 (Stopped - Provider: Miri Henderson, CRISTIANA) Continuous Medication Order 10/30/2021 10/31/2021 11/01/2021 lactated ringers IV solution Intravenous, at 100 mL/hr, CONTINUOUS, Starting on 11/01/21 at 0345, Until 11/01/21 at 1208 0412 ($$New Bag$$ - Provider: Kasey Gonzalez RN)1008 (Stopped - Provider: Miri Henderson, RN) PRN Medication Order 10/30/2021 10/31/2021 11/01/2021 acetaminophen (TYLENOL) tablet 650 mg 650 mg, Oral, EVERY 6 HOURS NEEDED, Starting on 11/01/21 at 0333, Until 11/01/21 at 1208, Other, Myalgia, Bone Pain - 1st line, Maximum dose of acetaminophen is 4000 mg from all sources in 24 hours. Buprenorphine 4 mg/naloxone 1 mg (SUBOXONE) SL film 1 strip 1 strip, Sublingual, EVERY 2 HOURS NEEDED, Starting on 11/01/21 at 0329, Until 11/01/21 at 1208, Other, Opioid Cravings, Maximum dose of 16 mg for 24 hours. cloNIDine (CATAPRES) tablet 0.1 mg 0.1 mg, Oral, EVERY 6 HOURS NEEDED, Starting on 11/01/21 at 0332, Until 11/01/21 at 1208, Withdrawal (2 or more of the following - SBP >160 or DBP >100, HR >110, Diaphoresis, Tremors, Hallucinations, RASS > 2), Hold if SBP <100/70 dicyclomine (BENTYL) capsule 10 mg 10 mg, Oral, EVERY 6 HOURS NEEDED, Starting on 11/01/21 at 0333, Until 11/01/21 at 1208, Abdominal Spasms hydrOXYzine HCl (ATARAX) tablet 25 mg 25 mg, Oral, EVERY 8 HOURS NEEDED, Starting on 11/01/21 at 0333, Until 11/01/21 at 1208, Anxiety Care Team (unrecognized sect ion and content) Care Team Personnel Name: PHYSICIAN, NONE Position: Physician Member Role: Primary Care Physician Care Team Related Persons Name: HUY WHEELER Care Team Personnel Name: PHYSICIAN, NONE Position: Physician Member Role: Primary Care Physician Name: FLORIAN KUNZ MD Position: ED Physician Member Role: Attending Physician Address: Address: [facility] [address] [place] [address]- Care Team Related Persons Name: HUY WHEELER FOR RECORDS PERTAINING TO PATIENTS WHO ARE OR HAVE BEEN ENROLLED IN A CHEMICAL DEPENDENCY/SUBSTANCEABUSE PROGRAM, SOME INFORMATION MAY BE OMITTED. This clinical summary was aggregated from multiple sources. Caution should be exercised in using it in the provision of clinical care. This summary normalizes information from multiple sources, and as a consequence, information in this document may materially change the coding, format and clinical context of patient data. In addition, data may be omitted in some cases. CLINICAL DECISIONS SHOULD BE BASED ON THE PRIMARY CLINICAL RECORDS. [facility]. provides no warranty or guarantee of the accuracy or completeness of information in this document.
[2024-11-02 03:21] LABS: Mucous, Urine 0 SEEN /hpf (<or=2+); Red Blood Cells-Urine 0 SEEN /hpf (0-5)
[2024-11-02 03:24] LABS: Color, Urine Yellow (Yellow); Glucose, Dipstick 1000 mg/dl (Normal); Leukocyte Esterase-Dipstick Negative /ul (Negative); Nitrite-Dipstick Negative (Negative); Occult Blood-Urine 50 /ul (Negative); Protein-Dipstick 100 mg/dl (Negative); Specific Gravity, Urine 1.025 (1.002-1.030); Urine Bilirubin Dipstick Negative (Negative)
--- NOTE | 2024-11-02 03:35 | CT_ITS ---
PROCEDURE: ABDOMEN WITH ORAL CONT ONLY 11/02/2024 REASON FOR EXAM: ABD PAIN TECHNIQUE: ABDOMEN WITH ORAL CONT ONLY coronal and Sagittal reconstruction series were provided. One or more dose reduction techniques were used (e.g., Automated exposure control, adjustment of the mA and/or kV according to patient size, use of iterative reconstruction technique CONTRAST: VOLUME: mL RADIATION DOSE SUMMARY: CTDlvol: mGy DLP: mGycm COMPARISON: none FINDINGS: Diffusely swollen pancreas, most evidently involving its head and uncinate process showing non homogenous parenchymal enhancement with extensive smudged peripancreatic fat planes and associated non and partially encapsulated fluid densities creeping along the mesenteric roots and retroperitoneal spaces and along the pancreatico-splenic reflection. The Prominent ileocolic lymph nodes with congested arcades and related fat stranding, possibly inflammatory. Average sized liver showing homogenous parenchymal attenuation with fatty changes. No dilated intra or extra-hepatic biliary tracts. Gall bladder sludge with no radiodense calculi. No abnormal mural thickening. Clear surrounding fat planes with no sizeable collections. The spleen, adrenals, aorta and IVC are unremarkable. Both kidneys are of average size and shape with preserved parenchymal thickness. No calculi or hydronephrosis. The urinary bladder shows no masses. Average sized uterus. No obvious uterine or adnexal masses. Right ovarian small functional cyst. Colonic fecal loading. The visualized small bowel loops show no obvious mural thickening. Unremarkable stomach. Non visualized appendix. No ascites. No free peritoneal air. No pathologically enlarged lymph nodes. Scanned osseous structures show no osseous destruction. Scanned lung bases show no abnormality CT/Abdomen WITH ORAL Cont Only IMPRESSION: Findings are suggestive of interstitial edematous pancreatitis with acute paolo- pancreatic fluid collections (Chito C). Advise clinico-laboratory correlation. Prominent ileocolic lymph nodes with congested arcades and related fat strandin g, possibly inflammatory. Reading Location: [facility]
[2024-11-02 03:53] LABS: Ketone-Dipstick 150 mg/dl (Negative)
[2024-11-02 03:55] LABS: Squamous Epithelial Cells - UA 0-5 SEEN /hpf (5-10)
--- NOTE | 2024-11-02 07:52 | EDS_ITS ---
HPI History of Present Illness Chief Complaint: Abd Pain Informant: patient and EMS Narrative Narrative: Patient is a 49-year-old female who reports a past medical history of hyperlipidemia but states she does not take her medication. She also reports a history of IV drug use but states she has been sober for 1 to 2 years. She denies any history of alcohol use or recent binge drinking. She states that over the last 2 to 3 days she has been having increasing generalized abdominal pain. She states there has been no significant constipation or vomiting but states she does feel nauseous with the pain. As the symptoms are worsening she presents for evaluation [facility] Medical History History of cellulitis History of asthma Home Medications ?Medication ?Instructions ?Recorded ?Last Taken ?Type atorvastatin 80 mg tablet 80 mg PO DAILY 11/02/24 Unkn own History Held on 11/02/24. Instructions: doesnt have Allergy/AdvReac Type Severity Reaction Status Date / Time No Known Allergies Allergy Verified 11/02/24 00:20 Family History (Updated 07/25/19 @ 15:33 by Luigi Grey) Other Diabetes Surgical History History of tubal ligation Social History (Updated 07/25/19 @ 17:03 by Daniel CARRENO, PA) Smoking Status: Current every day smoker tobacco type: cigarettes ROS ROS ED Constitutional Constitutional ED: Denies chills or fever(s) Eyes Eyes: Denies change in vision ENT ENT ED: Denies sore throat Cardiovascular Cardiovascular: Denies chest pain Respiratory/Chest Respiratory/Chest: Denies cough or dyspnea Gastrointestinal Gastrointestinal: Reports abdominal pain and nausea; Denies constipation, diarrhea or vomiting Genitourinary Genitourinary ED: Denies dysuria Musculoskeletal Musculoskeletal: Denies back pain or myalgias Integumentary Denies rash Neurologic Neurologic: Denies headache(s) Hematologic/Lymphatic Hematologic/Lymphatic: Denies easy bleeding or easy bruising EXAM Physical Exam Const Vital Signs: 11/02/24 00:21 11/02/24 03:31 11/02/24 05:00 Temperature 97 F L Temperature Source Temporal Pulse Rate 80 82 72 Respiratory Rate 24 H 18 16 Blood Pressure 149/83 H 130/82 H 128/71 H Blood Pressure Mean 105 98 90 Pulse Ox 99 98 97 Oxygen Delivery Method Room Air Room Air Positive well nourished, well developed and obese General Appearance ED: well developed Nutritional Appearance: obese HEENT Reports dry mucous membranes HEENT Narrative: Mucous membranes are dry and tacky No tongue or lip swelling no oral lesions no airway edema or compromise No signs of infection noted in the posterior pharynx Mouth ED: Yes dry mucous membranes Mouth: dry mucous membranes Eyes PERRL and EOMs intact bilaterally General Eye ED: Negative for scleral icterus Neck supple Neck Narrative: No nuchal rigidity or meningeal signs Resp normal respiratory effort and clear to auscultation bilaterally Cardio regular rate and regular rhythm Rate: other Other Details: Radial and carotid pulses are equal and symmetric GI non-distended and no masses GI Narrative: Abdomen is soft and nondistended with hypoactive bowel sounds. There is pain with palpation in the midepigastric region with slight voluntary guarding. No peritoneal signs. No rigidity. No pulsatile mass Auscultation: hypoactive bowel sounds Palpation: soft Extremity Extremity Narrative: Patient does have track wallace in bilateral arms consistent with history of IV drug abuse but no signs of abscess or cellulitis Neuro oriented x3, CN's II-XII intact bilaterally and no sensory deficits noted Sensorium / Orientation: alert Motor Exam: strength 5/5 throughout Psych mental status grossly normal Skin No skin turgor normal Skin Narrative: Skin turgor is increased consistent with mild dehydration. No jaundice noted Track wallcae as documented above without secondary findings of infection General Skin Exam: Negative for jaundice MDM MDM MDM Narrative Medical decision making narrative: Patient presented to the ER with stable vitals and reported increasing abdominal pain over the past 2 to 3 days. There is a diagnosis is for viral stomach infection such as norovirus versus rotavirus the patient could also have biliary colic versus acute cholecystitis versus acute pancreatitis. Secondary to this basic labs were ordered with urine sample. A CT with IV contrast was initially ordered as well. Unfortunately because of the patient's history of IV drug abuse obtaining blood work and establishing an IV is very difficult. An IV has been attempted multiple times by multiple providers without success. Therefore the decision was made to obtain a CT scan with oral contrast and treat her symptoms with oral and IM medication. The patient CT scan showed paolo- pancreatic inflammation with peripancreatic fluid collections most consistent with acute pancreatitis. Secondary to this the case was discussed with the hospitalist as well as our general surgeon Dr. Diaz. They agree that the inflammation and fluid collections could be just from severe acute pancreatitis. However there is potential that they are actually an infectious process and could require interventional radiology for drainage and/or surgery. The specialist states that he would not be the capable or comfortable of performing any surgical intervention on the pancreas and secondary to this there is recommendation that she be transferred to a higher level of care. The case was discussed with [facility] as well as [facility]. The patient has been accepted to their facility but at this time they are without any open beds. Despite the multiple attempts by multiple riders an IV could not be established or blood work obtained. Therefore a PICC line was ordered. At this time the patient is afebrile and normotensive and I feel that the pancreatitis is an inflammatory process and not infectious based on the stable vitals and therefore have not provided any type of antibiotic. But as patient will need transfer to a higher level of care and she is still awaiting her laboratory studies she will be signed out to the day physician Dr. Mackey pending acceptance History & Record Review Discussion w/independent historian: Patient Lab Data Attestation: I reviewed the patient's lab results. Labs: Laboratory Results - last 24 hr 11/02/24 03:17 Urine Color Yellow Urine Clarity Clear Urine pH 5.0 Ur Specific Onward 1.025 Urine Protein 100 H Urine Glucose (UA) 1000 H Urine Ketones 150 A* Urine Occult Blood 50 H Urine Nitrite Negative Urine Bilirubin Negative Urine Urobilinogen Normal Ur Leukocyte Esterase Negative Urine RBC 0 SEEN Urine WBC 0 SEEN Ur Squamous Epith Cells 0-5 SEEN Urine Bacteria 1+ Urine Mucus 0 SEEN Radiography Diagnostic Testing: Clinical Impression(s) from Imaging Studies Abdomen CT 11/02/24 03:35 IMPRESSION: Findings are suggestive of interstitial edematous pancreatitis with acute paolo- pancreatic fluid collections (Chito C). Advise clinico-laboratory correlation. Prominent ileocolic lymph nodes with congested arcades and related fat stranding, possibly inflammatory. Reading [facility] [id number] Management Discussion w/another healthcare provider: Hospitalist and Executive Personal Assistant Discharge Plan Triage Chief Complaint: Abd Pain Other Complaint: Flank Pain ED Provider: Sly Askew Dx/Rx/DC Orders Clinical Impression: Acute pancreatitis, Hyperlipidemia, History of intravenous drug use Prescriptions: No Action atorvastatin 80 mg tablet 80 mg PO DAILY Primary Care Provider: Care Physician,No Primary Referrals: Care Physician,No Primary [Primary Care Provider] - Print Language: Iraqi Disposition Disposition: Acute Care Hospital
[2024-11-02] MEDS: 0.9% Normal Saline (1000mL) 1,000 ML 150 ML IV (09:39)
[2024-11-02 11:08] LABS: Lipase 1647 U/L (13-75)
[2024-11-02 11:21] LABS: AST(SGOT) 12 U/L (<=31); Alanine Aminotransfer ALT/SGPT 12 U/L (<=34); Albumin, Serum 4.0 g/dL (3.5-5.0); Alkaline Phosphatase 131 U/L (35-104); Anion Gap 30 (5-15); BUN 18 mg/dL (4-19); BUN/Creat Ratio 16.6 RATIO (10-20); Bilirubin, Direct 0.17 mg/dL (0.00-0.30); Calcium,Total 8.9 mg/dL (7.6-11.0); Carbon Dioxide 4.3 mmol/L (21.0-32.0); Chloride 93 mmol/L (98-108); Estimated Creatinine Clearance 62.90 ml/min (50-250); Globulin 4.3 g/dL (2.2-4.2); Glucose 530 mg/dL (70-99); Potassium 4.3 mmol/L (3.3-5.1)
[2024-11-02] MEDS: 0.9% Normal Saline (1000mL) 1,000 ML 1000 ML IV ×2 (11:40→12:45)
[2024-11-02 12:05] LABS: SITE Not entered; Time Given 12:02:47; VBG BASE EXCESS -27 mmol/L (-1.0-3.5); VBG PO2 60 mmHg (25-40); VBG SO2 77 % (50-70); VBG TCO2 < 5 mmol/L (23-33)
--- NOTE | 2024-11-02 12:11 | EKG12_ITS ---
Test Reason : Blood Pressure : */* mmHG Vent. Rate : 112 BPM Atrial Rate : 112 BPM P-R Int : 144 ms QRS Dur : 80 ms QT Int : 384 ms P-R-T Axes : 65 10 4 degrees QTcB Int : 524 ms Sinus tachycardia Low voltage QRS Septal infarct , age undetermined Prolonged QT Abnormal ECG Confirmed by CHRISTOPHER BONE, PRIYANK ([id number]), order editor MIGUEL TAN ([id number]) on 11/05/2024 9:39:36 AM Referred By: Confirmed By: PRIYANK WHITE MD
--- NOTE | 2024-11-02 12:14 | ED.RN ---
1210: pharmacy called for insulin iv
[2024-11-02] MEDS: Insulin Lispro 100 UNIT/ML VIAL (ADMELOG) 10 UNIT IV (12:19)
[2024-11-02] MEDS: Sodium Bicarbonate 8.4% 50 ML Syringe 100 MEQ IV (12:22)
--- NOTE | 2024-11-02 12:45 | RAD_ITS ---
PROCEDURE: CHEST 1 VIEW (PORTABLE) 11/02/2024 REASON FOR EXAM: INTUBATION TECHNIQUE: Frontal view of the chest. COMPARISON: AP chest of 11/02/2024. RAD/Chest 1 View (Portable) IMPRESSION: Endotracheal tube tip less than a cm above the neri. Nasogastric tube seen coursing over the stomach, with tip not included. Lungs are hypoinflated, but no acute pneumonic process is clearly appreciated. No pleural effusion or pneumothorax is seen. The cardiomediastinal silhouette is stable, without evidence of cardiomegaly. Reading Location: [address]
--- NOTE | 2024-11-02 12:47 | RAD_ITS ---
PROCEDURE: CHEST 1 VIEW (PORTABLE) 11/02/2024 REASON FOR EXAM: ETT ADJUSTMENT TECHNIQUE: Frontal view of the chest. COMPARISON: Chest x-ray of earlier on 11/02/2024. RAD/Chest 1 View (Portable) IMPRESSION: Endotracheal tube approximately 1 cm above the neri, partially withdrawn sinc e the prior study. Nasogastric tube seen coursing over the stomach, with tip not included. Lungs remain hypoinflated, without acute pneumonic process clearly identified. No pleural effusion or pneumothorax is seen. The cardiomediastinal silhouette is stable, without evidence of cardiomegaly. Reading Location: [address]
[2024-11-02] MEDS: Propofol 10MG/Ml 1,000 MG/100 ML Bottle 5 MG CONT INF (12:55)
[2024-11-02 13:04] LABS: Allen Test Positive; Base Excess -24 mmol/L (-2 to +2); FI02 25.0; PO2 92 mmHG (75-100); SITE L Radial; SO2 93 % (95-99); Time Given 13:01:57
--- NOTE | 2024-11-02 13:27 | RAD_ITS ---
EXAM: XR Chest, 1 View CLINICAL INDICATION: CENTRAL LINE TECHNIQUE: Frontal view of the chest. COMPARISON: XR Chest dated 11/02/2024 FINDINGS: LUNGS AND PLEURAL SPACES: Left basilar atelectasis or pneumonia. No pneumothorax. HEART: Unremarkable. No cardiomegaly. MEDIASTINUM: Unremarkable. Normal mediastinal contour. BONES/JOINTS: Unremarkable. No acute fracture. TUBES, LINES AND DEVICES: Right internal jugular central venous catheter tip in the superior vena cava. The endotracheal tube (ETT) is in satisfactory position. Enteric tube tip in the stomach. RAD/CXR for Line Placement IMPRESSION: Left basilar atelectasis or pneumonia. Reading [facility]
[2024-11-02] MEDS: Insulin Lispro 100 UNIT in 0.9% Normal Saline (100mL Bag) 99 ML 8.4 UNIT CONT INF (13:31)
[2024-11-02] MEDS: Sodium Bicarbonate 8.4% 50 ML Syringe 50 MEQ IV (13:39)
[2024-11-02] MEDS: fentaNYL drip 100 ML 5 MCG CONT INF (13:48)
[2024-11-02] MEDS: Midazolam 2 MG/2 ML Syringe IV (13:57)
[2024-11-02] MEDS: Sodium Bicarbonate 150 MEQ in Dextrose 5%-Water (1000mL Bag) 1,000 ML IV (14:00)
[2024-11-02 14:12] LABS: Magnesium 2.1 mg/dL (1.5-2.2)
[2024-11-02] MEDS: dexMEDEtomidine 400 MCG in 0.9% Normal Saline (100mL Bag) 96 ML 10.5 MCG CONT INF (14:32)
[2024-11-02 14:39] LABS: BETA-HYDROXYBUTYRATE 9.2 mmol/L (0.0-0.3)
[2024-11-02 14:54] LABS: Allen Test Positive; Base Excess -22 mmol/L (-2 to +2); FI02 40.0; PO2 122 mmHG (75-100); SITE L Radial; SO2 98 % (95-99); Time Given 14:51:01
[2024-11-02] MEDS: Pantoprazole Sodium 40 MG in 0.9% Normal Saline (100mL MB+) 100 ML 300 MG IV (14:57)
[2024-11-02] MEDS: Piperacil/Tazobactam 4.5 GM in 0.9% Normal Saline (100mL MB+) 100 ML IV (15:01)
[2024-11-02 15:17] LABS: Prothrombin Time (Protime)PT. 14.7 SECONDS (11.7-14.9)
[2024-11-02 15:18] LABS: Partial Thromboplast Time 26.9 Seconds (24.1-36.2)
[2024-11-02] MEDS: fentaNYL 100 MCG/2 ML Ampul 50 MCG IV (15:33)
--- NOTE | 2024-11-02 15:40 | ED.RN ---
1541: REPORT GIVEN TO [facility] AT PT BEDSIDE
[2024-11-02 16:18] LABS: Hematocrit 29.0 % (37-47); Immature Granulocytes Count 0.060 X10^3/uL (0.0-0.0); Mean Corp Hgb Conc 34.1 g/dL (32-36); Mean Corpuscular Volume 92.9 fL (81-99); Mean Platelet Vol. 10.9 fl (6.2-12.0); NRBC Flagged by Analyzer 0.6 % (0-5); POSITIVE MORPHOLOGY YES; Platelet Count 182 K/mm3 (150-450); RBC Distribution Width CV 13.4 % (11.6-14.6); RBC Distribution Width SD 45.5 fl (35.1-43.9); Red Blood Count 3.12 M/mm3 (4.2-5.4); White Blood Count 6.7 K/mm3 (4.4-11.0)
--- NOTE | 2024-11-02 16:21 | ED.RN ---
REPORT CALLED TO [facility] NURSE, NAEEM AT THIS TIME. NO FURTHER QUESTIONS BY THE NURSE
[2024-11-02 16:30] LABS: Anion Gap 26 (5-15); BUN 19 mg/dL (4-19); BUN/Creat Ratio 18.0 RATIO (10-20); Calcium,Total 7.5 mg/dL (7.6-11.0); Carbon Dioxide 7.3 mmol/L (21.0-32.0); Chloride 103 mmol/L (98-108); Estimated Creatinine Clearance 65.89 ml/min (50-250); Glucose 481 mg/dL (70-99); Potassium 3.3 mmol/L (3.3-5.1)
[2024-11-02 16:33] LABS: Hemoglobin 9.9 g/dL (12.0-15.0)
--- NOTE | 2024-11-02 16:51 | ED.RN ---
1235: RESTRAINT APPLICATION FOR PROTECTION OF LINES AND TUBES. THIS NURSE CONTINUED TO ORIENT PT., DISTRACT, REDIRECT, AND MEET PHYSIOLOGICAL NEEDS IN ORDER TO PROMOTE PT. SAFETY PRIOR TO RESTRAINT APPLICATION AND AFTER.
[2024-11-02 19:29] LABS: Differential Comment SCANNED
[2024-11-02 21:08] LABS: Xtra Tube EP Lab EXTRA TUBE
[2024-11-02 21:56] LABS: Xtra Tube EP Lab EXTRA TUBE
== END 2024-11-02 15:55 | disposition short-term general hospital (02) ==
PROVIDERS: Emergency Medicine; Emergency Provider Surgery; Visit Provider Surgery
DX: R06.03 Acute respiratory distress (principal); E11.10 Type 2 diabetes mellitus with ketoacidosis without coma; K85.90 Acute pancreatitis without necrosis or infection, unspecified; E78.5 Hyperlipidemia, unspecified; K92.2 Gastrointestinal hemorrhage, unspecified; F17.210 Nicotine dependence, cigarettes, uncomplicated; Z79.899 Other long term (current) drug therapy
CPT/HCPCS: G0463; 31500; 36556; 36600; 51702; 71045; 74150; 80048; 80076; 81001; 82010; 82803; 82962; 83036; 83605; 83690; 83735; 84100; 85025; 85610; 85730; 87040; 93005; 94002; 96365; 96366; 96367; 96372; 96375; 96376; 99252; 99285; A4216; J2405